=== PATIENT | female | born 1980 | race Caucasian/White ===

== ENCOUNTER 2017-11-15 08:34 | Outpatient (CLI) | payer MEDICAID, SELFPAY ==
[2017-11-15 09:39] LABS: Hemoglobin A1C 5.8 % (4.5-6.2)
[2017-11-15 10:42] LABS: ALT 32 U/L (12-78); AST 14 U/L (15-37); Albumin 3.6 g/dL (3.4-5.0); Alkaline Phosphatase 101 U/L (46-116); BUN 18 mg/dL (7-18); Bilirubin, Total 0.2 mg/dL (0.2-1.0); CREATININE 1.27 mg/dL (0.55-1.02); Calcium 8.7 mg/dL (8.5-10.1); Chloride 105 mmol/L (98-107); Cholesterol 186 mg/dL (50-200); Estimated GFR 47.09 (mL/min/1.73m2); Glucose 111 mg/dL (70-100); HDL Cholesterol 42 mg/dL (40-60); LDL CHOLESTEROL 114 mg/dL (<100); Potassium 4.1 mmol/L (3.5-5.1); Sodium 139 mmol/L (136-145); Total Protein 6.6 g/dL (6.4-8.2); Triglyceride 215 mg/dL (30-150)
== END 2017-11-15 08:54 ==
PROVIDERS: PCP Family Medicine; Visit Provider Nurse Practitioner Family
DX: F31.74 Bipolar disorder, in full remission, most recent episode manic (principal); Z79.899 Other long term (current) drug therapy
CPT/HCPCS: 36415; 80053; 80061; 83721; 83036

== ENCOUNTER 2018-07-17 09:16 | Outpatient (CLI) | payer MEDICAID, SELFPAY ==
--- NOTE | 2018-07-17 09:20 | DI.RAD_ITS ---
SYMPTOM/DIAGNOSIS: LT KNEE PAIN AFTER COLLISION WITH DOG, STRAIN, S87.755G LEFT KNEE: Three views were obtained. No bony abnormality is seen.
== END 2018-07-17 09:36 ==
PROVIDERS: PCP Family Medicine; Visit Provider Nurse Practitioner Family
DX: M25.562 Pain in left knee (principal); S86.912A Strain of unspecified muscle(s) and tendon(s) at lower leg level, left leg, initial encounter
CPT/HCPCS: 73562

== ENCOUNTER 2019-04-14 19:00 | Emergency (ER) | payer MEDICAID, SELFPAY ==
[2019-04-14 19:16] VITALS: BP 136/91; PULSE 101; RESP 14; TEMP 38.1; O2SAT 94
--- NOTE | 2019-04-14 19:31 | W.ED.GENAD ---
Discharge Plan Disposition Patient Disposition: HOME Condition: Improving Discharge Details Chief Complaint: SOB Clinical Impression: Influenza A, Acute bronchospasm Primary Care Provider: Chelsi Orr ED Provider: Cisco Garcia Home Meds and New Rx's Prescriptions: New prednisone 20 mg tablet 40 mg PO DAILY 5 Days Qty: 10 RF: 0 Continued albuterol sulfate [ProAir HFA] 90 mcg/actuation HFA aerosol inhaler 2 puff Inhalation Q4H PRN Qty: 1 RF: 1 benzonatate [Tessalon Perles] 100 mg capsule 100 mg PO TID PRN (Reason: cough) Qty: 30 RF: 0 clonazepam 0.5 MG tablet 0.5 mg PO DAILY RF: 0 bupropion HCl [Wellbutrin SR] 100 MG tablet extended release 12 hr 100 mg PO DAILY RF: 0 benztropine 1 MG tablet 1 mg PO DAILY RF: 0 ziprasidone HCl [Geodon] 60 MG capsule 60 mg PO BID RF: 0 topiramate 50 MG tablet 50 mg PO BID RF: 0 Discharge Instructions Instructions: Influenza (ED), Bronchospasm (ED) Additional Instructions: Please take prednisone as prescribed, next dose tomorrow. May use the prescribed inhaler, return if you feel you are needing to use it greater than every 2-4 hours time. Tylenol and/or ibuprofen as needed for aches, pains, fever. Continue to push fluids with small, frequent sips of liquids and/or popsicles. Follow-up with regular doctor if not improving in 3 to 4 days time. Return to the emergency department for any acute concerns. Medical Decision Making 38-year-old female smoker with days of upper respiratory illness, worsening over the past 2 days for which she was seen in clinic earlier today. She was started on an inhaler and Tessalon Perles with some improvement. Tonight she had return of recurrent fever, shortness of breath at home and therefore sought emergency evaluation. Patient has slightly high pulse in triage of 101, she is febrile to 38.1 but is oxygenating normally. Exam reveals diffuse end expiratory wheezes. Differential does includes pneumonia, influenza, bronchitis with bronchospasm. Influenza screening obtained, patient referred for chest x-ray, given DuoNeb updraft and parenteral steroids. The patient does have positive influenza A. Chest x-ray without focal infiltrate. Following fluids, inhaled neb, steroids, and patient is improving. Vital signs improved. She does have an exacerbation of reactive airway disease. She will require a burst of oral/systemic steroids. She is outside the window to treat with Tamiflu. Discussed with her home management. She is stable and improving. She is appropriate for a trial of outpatient care. HPI General Mode of arrival: ambulatory. Date/Time Provider Initiated Documentation: 04/14/19 19:18. Limitations to Documentation: no limitations. Information obtained by: patient. History of Present Illness 38 year old F presents to the emergency department with the chief complaint of Cough, fever, wheeze and shortness of breath, described as moderate and similar to prior episodes, and is localized to the chest. Patient reports no radiation. Patient started experiencing this day(s) and it has been intermittent. No relieving factors improve symptom(s), Other factors that worsen symptoms (Smoking) . Patient notes cough, fever/chills and shortness of breath; denies headaches, nausea/vomiting and syncope. Patient did receive the following treatments prior to arrival, other (Inhaler) Related Data Home Medications Medication Instructions Recorded Confirmed benztropine 1 mg PO DAILY 06/28/15 04/14/19 bupropion HCl [Wellbutrin SR] 100 mg PO DAILY 06/28/15 04/14/19 clonazepam 0.5 mg PO DAILY 06/28/15 04/14/19 ziprasidone HCl [Geodon] 60 mg PO BID tab-cap 06/28/15 04/14/19 topiramate 50 mg PO BID 01/07/17 04/14/19 albuterol sulfate 90 mcg/actuation 2 puff INHALATION Q4H PRN #1 04/14/19 04/14/19 aerosol inhaler inhaler benzonatate 100 mg capsule 100 mg PO TID PRN #30 cap 04/14/19 04/14/19 prednisone 40 mg PO DAILY 5 Days #10 tab 04/14/19 Previous Rx's Medication Instructions Recorded albuterol sulfate 90 mcg/actuation 2 puff INHALATION Q4H PRN #1 04/14/19 aerosol inhaler inhaler benzonatate 100 mg capsule 100 mg PO TID PRN #30 cap 04/14/19 prednisone 40 mg PO DAILY 5 Days #10 tab 04/14/19 Allergies Allergy/AdvReac Type Severity Reaction Status Date / Time penicillin V Allergy Unknown Skin Rash Unverified 04/14/19 19:52 General Stated Complaint: SOB CLIVE: 3 Review of Systems Narrative: Question of sick contact at home. No vomiting, no syncope, no travel, no lower extremity pain or swelling. 6 systems reviewed and otherwise negative. [facility] Medical History Anxiety Asthma Bipolar disorder Diabetes mellitus Family History Mother Personal history of malignant neoplasm Breast Cancer Social History Smoking/Tobacco Use Status: Current every day Drug use: Never Do you feel safe at home: Yes Do you feel safe in your relationship?: Yes Exam Narrative Exam Narrative: GEN: awake, alert, oriented 3. Pleasant, well groomed, interactive. HEAD: Normocephalic, atraumatic ENT: Mucous membranes moist, oropharynx unremarkable, External ear exam unremarkable EYES: PERRL, EOMI NECK: Full ROM, no IBIS, no menigismus CHEST/RESP: Nontender, bilateral end expiratory wheeze CARDIOVASCULAR: RRR, no murmur, rub fernando. 2+ Rad pulse bilateral ABDOMEN: Soft, nontender, no mass. +Bowel sounds EXT: Full ROM, no edema, no rash Neuro: Grossly normal neurologic exam, conversant, interactive. Psych: Speech fluent, thoughts congruent, affect normal Course Vital Signs Vital signs: Vital Signs Temperature 38.1 C H 04/14/19 19:16 Pulse 101 H 04/14/19 19:16 Respiratory Rate 14 04/14/19 19:16 Blood Pressure 136/91 H 04/14/19 19:16 Pulse Oximetry 94 L 04/14/19 19:16 Temperature 38.1 C H 04/14/19 19:16 Temperature Source Tympanic 04/14/19 19:16 Pulse 101 H 04/14/19 19:16 Respiratory Rate 14 04/14/19 19:16 Blood Pressure 136/91 H 04/14/19 19:16 Pulse Oximetry 94 L 04/14/19 19:16 Oxygen Delivery Method Room Air 04/14/19 19:16 Oxygen Flow Rate 0 04/14/19 19:16 Pain Level 10 04/14/19 19:16 Comment 04/14/19 19:16
[2019-04-14 19:49] VITALS: RESP 18
[2019-04-14] MEDS: Acetaminophen 500 MG TAB 1000 MG PO (19:52)
[2019-04-14] MEDS: methylPREDNISolone SUCC 125 MG VIAL IVP (19:53)
[2019-04-14] MEDS: Normal Saline 1,000 ML 1000 ML IV (19:53)
[2019-04-14] MEDS: Albuterol/Ipratropium 3 ML UPD VIAL UPD (19:53)
--- NOTE | 2019-04-14 20:19 | DI.RAD_ITS ---
EXAM: XR CHEST 2V PA LATERAL CLINICAL HISTORY: fever, cough, wheeze. TECHNIQUE: 2D digital imaging was performed. COMPARISON: CHEST 2 VIEWS PA,LAT from 01/07/2017 FINDINGS: LUNGS: Clear. No pleural abnormality seen. HEART: Normal. MEDIASTINUM: Normal. OTHER FINDINGS:Normal. BONE:Normal. IMPRESSION: No acute pulmonary findings.
--- NOTE | 2019-04-14 20:39 | DI.VRAD_ITS ---
PROCEDURE INFORMATION: Exam: XR Chest, 2 Views Exam date and time: 04/14/2019 8:19 PM Age: 38 years old Clinical indication: Fever, cough, wheeze TECHNIQUE: Imaging protocol: XR of the chest Views: 2 views. COMPARISON: CR CHEST 2 VIEWS PA,LAT 01/07/2017 7:16 PM FINDINGS: Lungs: Clear lungs. Pleural space: No pneumothorax. No sizable pleural effusion. Heart/Mediastinum: No cardiomegaly. Bones/joints: Unremarkable. IMPRESSION: Clear lungs. Dictated and Authenticated by: Demetris Flores MD. Ordering:EDILBERTO Peck MD
[2019-04-14 21:08] VITALS: BP 120/54; PULSE 85; TEMP 36.8; O2SAT 94
[2019-04-14 21:41] VITALS: BP 117/70; PULSE 94; RESP 16; TEMP 36.7; O2SAT 96
== END 2019-04-14 21:35 | disposition home or self-care (01) ==
PROVIDERS: Emergency Provider Emergency Medicine; PCP Nurse Practitioner
DX: J10.1 Influenza due to other identified influenza virus with other respiratory manifestations (principal); J98.01 Acute bronchospasm; R06.02 Shortness of breath; F17.210 Nicotine dependence, cigarettes, uncomplicated; E11.9 Type 2 diabetes mellitus without complications
CPT/HCPCS: 87449; 94640; 96361; 96374; 99284; 71046; J2930; J7620

== ENCOUNTER 2020-11-20 20:15 | Emergency (ER) | payer MEDICARE, MEDICAID, SELFPAY ==
--- NOTE | 2020-11-20 20:41 | W.ED.GENAD ---
Discharge Plan Disposition Patient Disposition: HOME Condition: Good Discharge Details Clinical Impression: Abscess Primary Care Provider: Chelsi Orr ED Provider: Sam Dow Home Meds and New Rx's Prescriptions: New doxycycline hyclate 100 mg tablet 100 mg PO BID Qty: 20 RF: 0 Continued benzonatate [Tessalon Perles] 100 mg capsule 100 mg PO TID PRN (Reason: cough) Qty: 30 RF: 0 clonazepam 0.5 MG tablet 0.5 mg PO DAILY RF: 0 bupropion HCl [Wellbutrin SR] 100 MG tablet extended release 12 hr 100 mg PO DAILY RF: 0 benztropine 1 MG tablet 1 mg PO DAILY RF: 0 ziprasidone HCl [Geodon] 60 MG capsule 60 mg PO BID RF: 0 albuterol sulfate [ProAir HFA] 90 mcg/actuation HFA aerosol inhaler 2 puff Inhalation Q4H PRN Qty: 1 RF: 1 topiramate 50 MG tablet 50 mg PO BID RF: 0 Discharge Instructions Instructions: Abscess (ED) Additional Instructions: At this time the abscess has been drained. The packing that we placed will fall out on its own. Please follow-up with your primary care provider in the next 2 weeks to have the area reassessed. Please take the antibiotic doxycycline as directed. It is been sent to your pharmacy to start. If you notice any worsening of your symptoms, or any new symptoms such as vomiting, diarrhea, fever, chills, shortness of breath, chest pain, numbness, weakness, or fainting , please return immediately to the emergency department for reevaluation. Please follow up with your primary care provider as soon as possible for reassessment and reevaluation. As always, it was a pleasure participating in your medical care today. Referrals: Chelsi Orr, [employer]PERATOR [Primary Care Provider] - Medical Decision Making 40-year-old female with a past medical history of anxiety, asthma, bipolar, and diabetes type 2, presents today for evaluation of an abscess in her left lower pannus. Patient states that for the last few days she has noticed a small lesion there, it is grown in size and become somewhat tender. She denies any fever or chills. She denies any drainage at this point. She admits to mild tenderness on palpation of the area. No other complaints at this time. No other modifying. Physical exam demonstrates evidence of mild abscess of the left lower panel fold. LMX was applied. We will perform I&D of the area. Will give doxycycline for home use. 9:01 PM Abscess was I&D, about 5 to 7 mL of fluid were removed. The area was packed. Band-Aid is put over it. Discussed red flags which to return. Patient feeling much better. I have extensively reviewed the treatment plan and discharge instructions with the patient. I have addressed all patient concerns at this time. The patient was made aware of what symptoms to monitor for that would warrant a return to the emergency department. Discussed the plan with the patient, they demonstrate verbal understanding and agreement with our assessment and plan at this time. The documentation in this chart was dictated using [employer] dictation software. Please excuse any dictation errors. HPI General Date/Time Provider Initiated Documentation: 11/20/20 20:27. HPI Narrative: 40-year-old female with a past medical history of anxiety, asthma, bipolar, and diabetes type 2, presents today for evaluation of an abscess in her left lower pannus. Patient states that for the last few days she has noticed a small lesion there, it is grown in size and become somewhat tender. She denies any fever or chills. She denies any drainage at this point. She admits to mild tenderness on palpation of the area. No other complaints at this time. No other modifying. Related Data Home Medications Medication Instructions Recorded Confirmed benztropine 1 mg PO DAILY 06/28/15 04/14/19 bupropion HCl [Wellbutrin SR] 100 mg PO DAILY 06/28/15 04/14/19 clonazepam 0.5 mg PO DAILY 06/28/15 04/14/19 ziprasidone HCl [Geodon] 60 mg PO BID tab-cap 06/28/15 04/14/19 topiramate 50 mg PO BID 01/07/17 04/14/19 benzonatate 100 mg capsule 100 mg PO TID PRN #30 cap 04/14/19 04/14/19 albuterol sulfate 90 mcg/actuation 2 puff INHALATION Q4H PRN #1 11/17/19 aerosol inhaler inhaler doxycycline hyclate 100 mg PO BID #20 tab 11/20/20 Previous Rx's Medication Instructions Recorded benzonatate 100 mg capsule 100 mg PO TID PRN #30 cap 04/14/19 albuterol sulfate 90 mcg/actuation 2 puff INHALATION Q4H PRN #1 11/17/19 aerosol inhaler inhaler doxycycline hyclate 100 mg PO BID #20 tab 11/20/20 Allergies Allergy/AdvReac Type Severity Reaction Status Date / Time penicillin V Allergy Unknown Skin Rash Unverified 04/14/19 19:52 General CLIVE: 3 Review of Systems All systems reviewed & are unremarkable except as noted in HPI and below PFSH Medical History (Updated 11/20/20 @ 20:44 by Sam Dow DO) Anxiety Asthma Bipolar disorder Diabetes mellitus Family History Mother Personal history of malignant neoplasm Breast Cancer Social History Smoking/Tobacco Use Status: Current every day Smoking risk assessment performed?: Yes Drug use: Never Do you feel safe at home: Yes Do you feel safe in your relationship?: Yes Exam Narrative Exam Narrative: 1.Const: Well-nourished, Well-developed, appearing stated age 2.Eyes: PERRL, no conjunctival injection, and symmetrical lids. 3.ENT: Atraumatic external nose and ears. Moist MM. Neck: Symmetric, trachea midline, No thyromegaly. 4.CVS: +S1/S2, No murmurs or gallops. Peripheral pulses 2+ and equal in all extremities. Brisk capillary refill in all extremities. 5.RESP: Unlabored respiratory effort. Clear to auscultation bilaterally. No wheezes rales or rhonchi 6.GI: Soft, Nontender/Nondistended, No hepatosplenomegaly. No guarding or rebound. 7.MSK: Normocephalic/Atraumatic, Extremities w/o deformity or ttp No cyanosis or clubbing, Normal movement of all extremities 8.Skin: Warm, Dry. Patient's left lower panel fold demonstrates a mild abscess to the left lower area. Diameter fluctuant area is roughly 2 cm, mildly red. Mildly tender. Surrounding that is a area of minimal firmness and induration proximally 0.5 to 1 cm circumferentially. No drainage, no crepitus. 9.Neuro: element burner II-XII grossly intact. Sensation grossly intact, no focal neurologic deficits. 10.Psych: (AAO) x3. Appropriate mood and affect Procedures Abscess I/D Site: Abdomen Side (if applicable): Left Local Anesthetic: Other Anesthetic (Lidocaine 4% topical) Amount of anesthesia used (mL): 4 Technique: Incised with #11 Blade Amount of fluid expressed (mL): 5 Irrigation: No Packing used?: Iodoform Complications: Other (None, tolerated procedure well)
[2020-11-20 21:03] VITALS: BP 130/80; PULSE 79; RESP 18; O2SAT 98
[2020-11-20] MEDS: Lidocaine 4% Cream 5 GM TUBE TP (21:07)
== END 2020-11-20 21:10 | disposition home or self-care (01) ==
PROVIDERS: Emergency Provider Student in an Organized Health Care Education/Training Program; PCP Nurse Practitioner
DX: L02.211 Cutaneous abscess of abdominal wall (principal)
CPT/HCPCS: 10061

== ENCOUNTER 2021-02-07 20:46 | Outpatient (REF) | payer MEDICARE, MEDICAID, SELFPAY ==
[2021-02-10 08:56] LABS: COVID-19 RT-PCR UVMMC Result Positive (Negative)
== END 2021-02-07 20:47 | disposition home or self-care (01) ==
LOC: LBN 20:46
PROVIDERS: PCP Nurse Practitioner; Visit Provider Family Medicine
DX: Z20.822 Contact with and (suspected) exposure to COVID-19 (principal); R05.8 Other specified cough
CPT/HCPCS: U0003

== ENCOUNTER 2021-04-05 12:38 | Outpatient (REF) | payer MEDICARE, MEDICAID, SELFPAY ==
[2021-04-06 13:34] LABS: COVID-19 RT-PCR UVMMC Result Negative (Negative)
== END 2021-04-05 12:39 | disposition home or self-care (01) ==
LOC: LBN 12:38
PROVIDERS: PCP Nurse Practitioner; Visit Provider Family Medicine
DX: J02.9 Acute pharyngitis, unspecified (principal); Z20.822 Contact with and (suspected) exposure to COVID-19
CPT/HCPCS: U0003; U0005; 87070

== ENCOUNTER 2021-07-13 11:00 | Outpatient (REF) | payer MEDICARE, MEDICAID, SELFPAY ==
--- NOTE | 2021-07-13 10:30 | PAPFT_PTH ---
PATIENT: Sirena Tarango LOC: [facility] U#:[id number] AGE/SX: 40/F ROOM: RE07/13/[address]: MELISSA Almanza : 1980 BED: DIS: 07/13/2021 SPEC #: [id number] RECD: 07/13/21 13:00 STATUS: PPIE HERNANDEZ #: [id number] SONNY: 07/13/21 10:[address]: Ele Alonso DEPT: [facility] Cytology RECD BY: Get Barrientos Tissues: 1 - CX/ENDOCX FOR PAP SMEARS Procedures: PAP THIN PREP/UVM Screening HPV DNA PROBE Comments: [id number]
== END 2021-07-13 11:01 | disposition home or self-care (01) ==
LOC: LBN 11:00
PROVIDERS: PCP Nurse Practitioner; Visit Provider Nurse Practitioner Family
DX: Z11.51 Encounter for screening for human papillomavirus (HPV); Z01.419 Encounter for gynecological examination (general) (routine) without abnormal findings
CPT/HCPCS: 88142; 87624

== ENCOUNTER 2021-08-31 23:58 | Emergency (ER) | payer MEDICARE, MEDICAID, SELFPAY ==
--- NOTE | 2021-09-01 | RT.EKG_ITS ---
APPROVED REPORT Exam: Resting ECG Reason for Exam: left chest pain Patient Location: E HR:94 bpm ECG Measurements Heart Rate 94 AXIS AK 155 P 55 QRSd 83 QRS 40 QT 337 T 44 QTc 421 Conclusion Sinus rhythm...normal P axis, V-rate 60- 99
[2021-09-01 00:08] VITALS: BP 136/81; PULSE 99; RESP 20; TEMP 36.2; O2SAT 98
--- NOTE | 2021-09-01 00:15 | DI.RAD_ITS ---
Exam(s) XR CHEST 2V PA LATERAL EXAM: XR CHEST 2V PA LATERAL CLINICAL HISTORY: chest pain TECHNIQUE: 2D digital imaging was performed of the chest. Two images were obtained. PA and lateral views were obtained. COMPARISON: CR,XR XR CHEST 2V PA LATERAL from 04/14/2019 FINDINGS: MEDIASTINUM: Normal. HEART: Normal. PULMONARY VASCULATURE: Normal. LUNGS: Clear. PLEURAL SPACE: No pleural effusion or pneumothorax. BONE:Within normal limits for the patient's age. OTHER FINDINGS:Normal. IMPRESSION: No acute pulmonary findings. DATA REPOSITORY: RADIATION DOSE DELIVERED:
--- NOTE | 2021-09-01 00:15 | DI.CT_ITS ---
Exam(s) CT ABDOMEN PELVIS WO EXAM: CT ABDOMEN PELVIS WO CLINICAL HISTORY: left lower abdomen pain. TECHNIQUE: Imaging Protocol: Axial computed tomography images with coronal and sagittal reformatted images were created and reviewed. COMPARISON: No exams were available for comparison FINDINGS: ABDOMEN: Lung Bases: Normal where visualized. There is a small hiatal hernia. Liver: Normal density. No measurable mass. Gallbladder and biliary tract: Gallstones are present. There is no biliary ductal dilatation. Pancreas: Normal density, no abnormal calcifications or inflammatory process. Spleen: Normal. Kidneys: Normal size, contour and axis.No radiodense stones or obstructive uropathy. No masses seen. Adrenal glands: There is a 1.3 cm hypodense right adrenal nodule. Hounsfield units are -3. This is are most consistent with benign lesion such as an adenoma or myelolipoma. No follow-up is recommende d. The left adrenal gland is unremarkable. Lymph nodes: Within normal limits. Abdominal Aorta: Abdominal portion non-dilated. PELVIS: Bladder:Symmetric distention, no gross wall thickening. Bowel: No evidence of bowel obstruction. There do appear to be small bowel loops with mild bowel wal l thickening in the left upper quadrant suspicious for enteritis. Appendix is unremarkable. Peritoneal cavity: No ascites, collection or mesenteric inflammatory response. No free air. Reproductive organs: Within normal limits. There is an IUD in good position. Bones: Within normal limits. Soft Tissues: Within normal limits. IMPRESSION: Mild wall thickening and small bowel loops in the left upper quadrant suspicious for enteritis. RADIATION DOSE DELIVERED: 1,290.67mGy.cm Total DLP DATA REPOSITORY: All CT scans at this facility are submitted to the National Radiology Data Registry (NRDR) Dose Index Registry (DIR) with the [employer] ([employer]). RADIATION OPTIMIZATION: All CT scans at this facility use at least one of these dose optimization te chniques: automated exposure control; mA and/or kV adjustment per patient size (includes targeted exa ms where dose is matched to clinical indication); or iterative reconstruction.
--- NOTE | 2021-09-01 00:15 | ED.GENADUL_ITS ---
Discharge Plan Disposition Patient Disposition: AGAINST MEDICAL ADVICE Condition: Stable Discharge Details Clinical Impression: Chest pain, Abdominal pain Primary Care Provider: Chelsi Orr ED Provider: Jatin Phelan Home Meds and New Rx's Prescriptions: Continued metformin 500 mg tablet 500 mg PO DAILY albuterol sulfate [ProAir HFA] 90 mcg/actuation HFA aerosol inhaler 2 puff Inhalation Q4H PRN Qty: 1 1RF clonazepam 0.5 MG tablet 0.5 mg PO DAILY Label Comments: 01-09-17 pt reports that she is instructed to take one tab BID PRN. hb bupropion HCl [Wellbutrin SR] 100 MG tablet extended release 12 hr 150 mg PO DAILY ziprasidone HCl [Geodon] 60 MG capsule 60 mg PO BID Label Comments: 02/05/17 taking 80 mg at hs and 60 mg in the am. [facility] 01-09-17 pt reports taking 100 HS and 60 AC. hb omeprazole 20 mg capsule,delayed release(DR/EC) 20 mg PO DAILY Qty: 30 0RF Rx Instructions: may substitute generic Discharge Instructions Instructions: Chest Pain (ED) Additional Instructions: follow up with your primary care provider as soon as possible if you have worsening symptoms, difficulty breathing or feel more ill return to the emergency department. Medical Decision Making 40 yo female with hx of anxiety, asthma, dm, bipolar, comes in with chief complaint of diarrhea and left lateral chest pain when laying flat. She states this started this afternoon and also had some lower abdomen discomfort. She denies having pain like this in the past. She denies prior cardiac history and no anterior chest pain or pressure. Localizes the pain to the left lateral chest in mid axillary line and is tender over the 4-5 ribs, no visual or palpable deformities. She has llq tenderness otherwise no tenderness in the abdomen and no guarding. SHe appears well on exam does appear mildly anxious. Her pain in her chest is only with laying flat and has no pain now. Symptoms seem atypical for acs but will obtain ecg and troponin. No tearing back pain and normal vascular exam so doubt dissection and no evidence of dvt on exam no tachycardia or hypoxia and no pain with deep breathing so doubt PE. Will obtain cbc, cmp, troponin, and obtain cxr and ct abdomen/pelvis to evaluate for diverticulitis pt stable, labs show wbc of 12 otherwise no acute findings, has blood in urine but is on her period. I do not see any significant findings on imaging but vrad reports pending. REcommended patient stay for these reads and also delta troponin. She is declining to stay and wants to go home. Discussed risks of leaving including potential and disability and she still doesn't want to stay and was able to voice these risks back to me. She is caox4 and has capacity to make her own decisions. She is leaving against my medical advise. She was instructed to f/u with pcp meena and advised she can return at any time if she changes her mind Differential Diagnosis Differential Diagnosis: chest wall pain, pleurisy, diverticulitis, colitis Medical Records Medical records reviewed: Yes I reviewed the patient's medical records. Lab Data Lab results reviewed: Yes I reviewed the patient's lab results. ECG Data Attestation: I personally reviewed and interpreted this ECG (s) as follows: Prior ECG tracings: not available for review Interpretation: sinus rhythm, rate of 94, pr 155, no acute st t wave ischemic findings HPI General Mode of arrival: ambulatory . Date/Time Provider Initiated Documentation: 09/01/21 00:00 . Limitations to Documentation: no limitations . Information obtained by: patient . History of Present Illness 40 year old F presents to the emergency department with the chief complaint of left lateral chest pain, described as moderate, Patient started experiencing this hour(s) (5) and it has been now resolved. other things that improve symptom(s), (sitting up) Other factors that worsen symptoms (laying flat) . Patient notes other (diarrhea). Patient did receive the following treatments prior to arrival, none Related Data Home Medications Medication Instructions Recorded Confirmed bupropion HCl 100 mg tablet,12 hr 150 mg PO DAILY 06/28/15 09/01/21 sustained-release (Wellbutrin SR) clonazepam 0.5 mg tablet 0.5 mg PO DAILY 06/28/15 09/01/21 ziprasidone HCl 60 mg capsule 60 mg PO BID 06/28/15 09/01/21 (Geodon) albuterol sulfate 90 mcg/actuation 2 puff inhalation Q4H PRN ##1 02/07/21 09/01/21 aerosol inhaler (ProAir HFA) metformin 500 mg tablet 500 mg PO DAILY 04/05/21 09/01/21 omeprazole 20 mg capsule,delayed 20 mg PO DAILY #30 caps 05/12/21 09/01/21 release Previous Rx's Medication Instructions Recorded albuterol sulfate 90 mcg/actuation 2 puff inhalation Q4H PRN ##1 02/07/21 aerosol inhaler (ProAir HFA) omeprazole 20 mg capsule,delayed 20 mg PO DAILY #30 caps 05/12/21 release Allergies Allergy/AdvReac Type Severity Reaction Status Date / Time penicillin V Allergy Unknown Skin Rash Unverified 09/01/21 00:24 General Stated Complaint: Chest Pain CLIVE: 3 Review of Systems All systems reviewed & are unremarkable except as noted in HPI and below Constitutional Constitutional: Denies chills, Denies fever(s) and Denies weakness ENT Ears, Nose, Mouth, and Throat: Denies change in voice Cardiovascular Cardiovascular: Denies dyspnea Respiratory Respiratory: Denies cough and Denies dyspnea Gastrointestinal Gastrointestinal: Denies vomiting Genitourinary Genitourinary: Denies dysuria Musculoskeletal Musculoskeletal: Denies joint swelling Integumentary/Breasts Skin/Breast: Denies rash Neurologic Neurologic: Denies weakness PFSH All Active Problems (Updated 09/01/21 @ 01:34 by Jatin Phelan MD) Chest pain (Acute) Abdominal pain (Acute) IUD surveillance (Acute) GERD (gastroesophageal reflux disease) (Chronic) Abscess (Acute) URI (upper respiratory infection) (Acute) Medical History (Updated 09/01/21 @ 01:34 by Jatin Phelan MD) Anxiety Asthma Bipolar disorder Diabetes mellitus History of COVID-19 (~01/2021) 01/2021 Family History Mother Personal history of malignant neoplasm Breast Cancer Social History (Updated 04/05/21 @ 09:20 by Charito Navarrete MD) Smoking/Tobacco Use Status: Current every day Tobacco Type: cigarettes Years smoked: 15 Smoking risk assessment performed?: Yes Alcohol Intake: never Drug use: Never Do you feel safe at home: Yes Do you feel safe in your relationship?: Yes Exam Const General: no acute distress Orientation: alert HENMT Head: normal to inspection Ears: external ears normal General nose exam: external nose normal Mouth: moist mucous membranes Eyes General: appearance normal, both eyes and all related structures Neck Neck: normal visual inspection Chest Chest: normal inspection of the chest Resp Effort & Inspection: normal respiratory effort and able to speak in complete sentences Cardio Rate: regular rate GI Palpation: soft Skin General skin exam: no rashes or lesions noted Neuro General: patient alert and patient oriented x3 Extrem General: normal to inspection Psych Mental Status: mental status grossly normal Course Vital Signs Vital signs: Vital Signs Temperature 36.2 C L 09/01/21 00:08 Pulse 99 H 09/01/21 00:08 Respiratory Rate 20 09/01/21 00:08 Blood Pressure 136/81 09/01/21 00:08 Pulse Oximetry 98 09/01/21 00:08 Temperature 36.2 C L 09/01/21 00:08 Pulse 99 H 09/01/21 00:08 Respiratory Rate 20 09/01/21 00:08 Blood Pressure 136/81 09/01/21 00:08 Blood Pressure Position Supine 09/01/21 00:08 Pulse Oximetry 98 09/01/21 00:08 Oxygen Delivery Method Room Air 09/01/21 00:08 Oxygen Flow Rate 0 09/01/21 00:08 Pain Level 0 09/01/21 00:08
[2021-09-01 00:22] LABS: Bilirubin Negative (Negative); Blood Large (Negative); Clarity Clear (Clear); Glucose Negative (Negative); Ketones Negative (Negative); Leukocyte Esterase Trace (Negative); Nitrite Negative (Negative); Specific Gravity 1.015 (1.005-1.025); Urobilinogen 0.2 EU/dL (Up TO 0.2)
[2021-09-01 00:26] LABS: Abs Immature Grans 0.06 10^3/uL (0.0-0.06); Absolute Basophil Count 0.06 10^3/uL (0.0-0.2); Absolute Lymphocyte Count 3.73 10^3/uL (1.2-3.4); Basophils % 0.5; Eosinophils % 2.6; HCT 42.6 % (36.0-46.0); HGB 14.3 g/dL (11.2-15.7); Immature Grans % 0.5; Lymphocytes % 28.9; MCH 29.7 pg (27.0-33.0); MCHC 33.6 % (32.0-36.0); MCV 89 fL (80-95); MPV 9.8 fL (8.0-11.0); Monocytes % 6.3; Neutrophils % 61.2; Platelet Count 322 10^3/uL (130-400); RBC 4.81 10^6/uL (3.93-5.22); RDW 14.1 % (11.7-14.6); RDW-SD 45.5 fL; WBC 12.92 10^3/uL (4.4-10.8)
[2021-09-01 00:31] LABS: Absolute Eosinophil Count 0.34 10^3/uL (0.0-0.7); Absolute Monocyte Count 0.81 10^3/uL (0.1-0.8); Absolute Neutrophil Count 7.91 10^3/uL (1.2-6.7)
[2021-09-01 00:34] LABS: Bacteria Negative HPF (Negative); C & S Indicated? No; Crystals Negative HPF (Negative); Epithelial Cells Rare HPF (Negative); Mucus Negative (Negative); RBC >50 HPF (0-2); WBC 0-2 HPF (0-5)
[2021-09-01 00:42] LABS: Lipase 83 U/L (73-393); Magnesium 2.1 mg/dL (1.8-2.4); Troponin I < 50 ng/L (<or=60)
--- NOTE | 2021-09-01 03:26 | DI.VRAD_ITS ---
PROCEDURE INFORMATION: Exam: CT Abdomen And Pelvis Without Contrast Exam date and time: 09/01/2021 12:56 AM Age: 40 years old Clinical indication: Abdominal pain; Generalized; Additional info: Abd pain TECHNIQUE: Imaging protocol: Computed tomography of the abdomen and pelvis without contrast. Radiation optimization: All CT scans at this facility use at least one of these dose optimization techniques: automated exposure control; mA and/or kV adjustment per patient size (includes targeted exams where dose is matched to clinical indication); or iterative reconstruction. COMPARISON: CR XR CHEST 2V PA LATERAL 04/14/2019 8:19 PM FINDINGS: Tubes, catheters and devices: Intrauterine device positioned in the uterus. Lungs: Lung bases are clear. Diaphragm: Mild hiatal hernia. Liver: Unremarkable noncontrast liver imaging. Gallbladder and bile ducts: Collapsed gallbladder. Multiple stones. No inflammatory change. No ductal dilatation. Pancreas: Normal. No ductal dilation. Spleen: Normal. No splenomegaly. Adrenal glands: Right adrenal myelolipoma, 1.5 cm, incidental. Kidneys and ureters: No hydronephrosis. Perinephric fat stranding noted on the right. No definite stones. Stomach and bowel: Unremarkable stomach. Nondilated small bowel. Fat planes around loops of small bowel are indistinct. There are no inflammatory changes observed around the colon. Appendix: Normal appendix. Intraperitoneal space: Mild mesenteric fat stranding. No significant free fluid. Negative for free air. Negative for abscess. Vasculature: Unremarkable. No abdominal aortic aneurysm. Lymph nodes: Mesenteric lymph nodes are mildly prominent. Negative for pathologic lymphadenopathy. Urinary bladder: Unremarkable as visualized. Reproductive: Negative for adnexal mass or cyst. Bones/joints: Unremarkable. No acute fracture. Soft tissues: No significant abdominal wall hernia. IMPRESSION: 1. Findings of enteritis with reactive mesenteric inflammation. 2. Cholelithiasis, without cholecystitis. Dictated and Authenticated by: Jatin Ness MD. Ordering:KELLI Steiner MD
--- NOTE | 2021-09-01 03:26 | DI.VRAD_ITS ---
PROCEDURE INFORMATION: Exam: XR Chest Exam date and time: 09/01/2021 12:58 AM Age: 40 years old Clinical indication: Chest wall pain; Additional info: Chest pain TECHNIQUE: Imaging protocol: Radiologic exam of the chest. Views: 2 views. COMPARISON: CR XR CHEST 2V PA LATERAL 04/14/2019 8:19 PM FINDINGS: Lungs: Unremarkable. No consolidation. Pleural spaces: Unremarkable. No pleural effusion. No pneumothorax. Heart/Mediastinum: Unremarkable. No cardiomegaly. Bones/joints: Unremarkable. IMPRESSION: No acute findings. Dictated and Authenticated by: Jatin Ness MD. Ordering:KELLI Steiner MD
== END 2021-09-01 02:32 | disposition left against medical advice (07) ==
PROVIDERS: Emergency Provider Emergency Medicine; PCP Nurse Practitioner
DX: R07.9 Chest pain, unspecified (principal); R10.9 Unspecified abdominal pain; K52.9 Noninfective gastroenteritis and colitis, unspecified; K80.20 Calculus of gallbladder without cholecystitis without obstruction; R10.32 Left lower quadrant pain; Z53.29 Procedure and treatment not carried out because of patient's decision for other reasons
CPT/HCPCS: 81025; 83690; 93005; 99285; 71046; 74176; 81003; 81015; 83735; 84484; 85025; 93010; 99284

== ENCOUNTER → 2021-09-28 00:39 | Outpatient (CLI) | payer MEDICARE, MEDICAID, SELFPAY ==
--- NOTE | 2021-09-28 08:45 | DI.MAMMO_ITS ---
Exam(s) MAMMO SCREENING EXAM: MAMMO SCREENING CLINICAL HISTORY: screening. TECHNIQUE: Bilateral full field digital CC and MLO mammographic images were obtained with 3D tomosyn thesis and utilizing computer aided detection (CAD). COMPARISON: Prior mammogram of 2013 was reviewed. There are no interval mammograms since 2013. FINDINGS: There has been no significant change in the appearance and distribution of the fibroglandular tissue. There are no new spiculated masses nor malignant appearing microcalcification groups. Benign-appearing nodules in both breasts are unchanged from 2013 point. There is no significant architectural distortion nor skin thickening-retraction. IMPRESSION: No radiographic evidence of malignancy. Stable benign findings. BI-RADS Category 2 - Benign Findings Breast Density - Category B - Scattered areas of fibroglandular density Breast density Category C or D implies that the patient has dense breast tissue. Dense breast tissue can make it harder to find cancer on a mammogram. Dense breast tissue is also associated with an incr eased risk of breast cancer. This information about the result of the mammogram report was provided to the patient to raise their awareness. Use this report when you speak with the patient about their risks for breast cancer, which includes their family history. At that time, you may recommend additional screening tests (Ultrasoun d or MRI) as these tests may add significant information. A negative radiographic report should not delay biopsy if a dominant or clinically suspicious mass is present. Up to ten percent of cancers are not identified on mammography. A negative report may reinforce clinical impression. Adenosis and dense breasts may obscure an underlying neoplasm. False positive reports average 6 to 10%. Patient will receive a letter notifying them of these results.
== END ==
PROVIDERS: PCP Nurse Practitioner; Visit Provider Nurse Practitioner Family
DX: Z12.31 Encounter for screening mammogram for malignant neoplasm of breast (principal)
CPT/HCPCS: 77063; 77067

== ENCOUNTER 2021-10-19 21:21 | Emergency (ER) | payer MEDICARE, MEDICAID, SELFPAY ==
[2021-10-19 21:25] VITALS: BP 133/88; PULSE 112; RESP 18; TEMP 36.8
[2021-10-19] MEDS: diphenhydrAMINE 50 MG/ML VIAL (21:35)
[2021-10-19] MEDS: LORazepam 20 MG/10 ML VIAL ×2 (21:35→22:40)
[2021-10-19] MEDS: Haloperidol 5 MG/ML VIAL (21:35)
--- NOTE | 2021-10-19 22:11 | W.ED.GENAD ---
Discharge Plan Disposition Patient Disposition: STILL A PATIENT Condition: Serious Discharge Details Clinical Impression: Manic episode, Agitation Primary Care Provider: Chelsi Orr ED Provider: Sam Dow Home Meds and New Rx's Prescriptions: No Action metformin 500 mg tablet 500 mg PO DAILY albuterol sulfate [ProAir HFA] 90 mcg/actuation HFA aerosol inhaler 2 puff Inhalation Q4H PRN Qty: 1 1RF clonazepam 0.5 MG tablet 0.5 mg PO TID Label Comments: 01-09-17 pt reports that she is instructed to take one tab BID PRN. hb bupropion HCl [Wellbutrin SR] 100 MG tablet extended release 12 hr 150 mg PO DAILY ziprasidone HCl [Geodon] 60 MG capsule 60 mg PO BID Label Comments: 02/05/17 taking 80 mg at hs and 60 mg in the am. [facility] 01-09-17 pt reports taking 100 HS and 60 AC. hb olanzapine 5 mg tablet 1 tab PO DAILY Label Comments: TAKE ONE TABLET BY MOUTH EVERY DAY Medical Decision Making 40-year-old female with a past medical history of anxiety, asthma, bipolar, and diabetes type 2, who presents today for evaluation of mental health crisis [facility], under a current emergency examination status.. Over the last few days the patient (Per the emergency examination documentation and [facility] police) has been having a notable increase in her manic states. She has been impulsive buying, has been calling [facility] police multiple times stating that she is being abused, she was talking to her primary provider stating that she wants a name change, and wants to go travel. She bought $1000 of scratch off tickets and new iPhone over the last few days impulsively. Normally she is gentle, in touch, and kind to others however family states that over the last week she has been abusive to family, out of touch, violent, often speaking in rapid speech, gibberish, and notably aggravated. This evening all of the symptoms escalated, mental health was asked to assess the patient, and after assessment, the patient was noted to be in an acute manic episode, and she was brought to the ER under emergency examination status. Currently the patient does not have any focal complaints but she states that I know my rights, I can do what ever I want, [place] She has no focal complaints though. She denies any auditory or visual hallucinations. She denies any suicidal or homicidal ideations. She is otherwise unable to provide any other historical details. Physical exam demonstrates a notably manic patient, rapid speech, pressured speech, flight of ideas and tangential thinking. She is stating that this is wrong because of her freedoms, and then will transition to apologizing profusely and stating that she would do what ever needs to be done to get help. She goes on about how she is done with this job, and now she has to leave so she can get to her next job. When the patient initially arrived she was like this and eventually escalated to the point where she stated she was leaving. She was given clear options, I made it unequivocally that if she did leave because of her emergency examination status that she would be brought back by [facility] police, and would likely need chemical restraint secondary to this behavior. Patient then walked out of the emergency department pushing past me, and walked out to the front door but actually never left the building/premises. She was then brought back in by [facility] police. She voluntarily accepted a B-52 injection, unfortunately she continues to be notably agitated, refused to take off any of her jewelry, and eventually required additional sedation voluntarily of 10 mg of Valium and 10 mg of Zyprexa. We will continue to monitor the patient, I will fill out an EE form, and they do agree with the findings of the initial mental health assessment. We will medically clear, monitor closely and reassess. 4:39 AM Patient's laboratory work-up is returned and is relatively unremarkable. TSH is mildly elevated at 5.71, but free T4 is normal. Drug analysis demonstrates no significant abnormalities that would suggest a clear cause of her symptoms. Symptoms are more likely secondary to her bipolar disease, and she is demonstrating evidence of a manic episode with clear disruption of normal safe and appropriate thinking and the patient's current state. Patient has remained stable throughout the night. She has been hemodynamically stable, and is now resting comfortably in bed. No additional interventions were required. EE paperwork has been sent, and mental health will reassess in the morning. Patient will be signed out to my colleague for follow-up on mental health evaluation. Patient remains here involuntarily. HPI General Date/Time Provider Initiated Documentation: 10/19/21 21:25. HPI Narrative: 40-year-old female with a past medical history of anxiety, asthma, bipolar, and diabetes type 2, who presents today for evaluation of mental health crisis [facility], under a current emergency examination status.. Over the last few days the patient (Per the emergency examination documentation and [facility] police) has been having a notable increase in her manic states. She has been impulsive buying, has been calling [facility] police multiple times stating that she is being abused, she was talking to her primary provider stating that she wants a name change, and wants to go travel. She bought $1000 of scratch off tickets and new iPhone over the last few days impulsively. Normally she is gentle, in touch, and kind to others however family states that over the last week she has been abusive to family, out of touch, violent, often speaking in rapid speech, gibberish, and notably aggravated. This evening all of the symptoms escalated, mental health was asked to assess the patient, and after assessment, the patient was noted to be in an acute manic episode, and she was brought to the ER under emergency examination status. Currently the patient does not have any focal complaints but she states that I know my rights, I can do what ever I want, [place] She has no focal complaints though. She denies any auditory or visual hallucinations. She denies any suicidal or homicidal ideations. She is otherwise unable to provide any other historical details. Related Data Home Medications Medication Instructions Recorded Confirmed bupropion HCl 100 mg tablet,12 hr 150 mg PO DAILY 06/28/15 10/19/21 sustained-release (Wellbutrin SR) clonazepam 0.5 mg tablet 0.5 mg PO TID 06/28/15 10/19/21 ziprasidone HCl 60 mg capsule 60 mg PO BID 06/28/15 10/19/21 (Geodon) albuterol sulfate 90 mcg/actuation 2 puff inhalation Q4H PRN ##1 02/07/21 10/19/21 aerosol inhaler (ProAir HFA) metformin 500 mg tablet 500 mg PO DAILY 04/05/21 10/19/21 olanzapine 5 mg tablet 1 tab PO DAILY 10/19/21 10/19/21 Previous Rx's Medication Instructions Recorded albuterol sulfate 90 mcg/actuation 2 puff inhalation Q4H PRN ##1 02/07/21 aerosol inhaler (ProAir HFA) Allergies Allergy/AdvReac Type Severity Reaction Status Date / Time penicillin V Allergy Unknown Skin Rash Unverified 09/05/21 08:37 General CLIVE: 3 Review of Systems All systems reviewed & are unremarkable except as noted in HPI and below PFSH All Active Problems (Updated 10/20/21 @ 04:42 by Sam Dow DO) Manic episode (Acute) Agitation (Acute) IUD surveillance (Acute) GERD (gastroesophageal reflux disease) (Chronic) Medical History Anxiety Asthma Bipolar disorder Diabetes mellitus History of COVID-19 (~01/2021) 01/2021 Family History Mother Personal history of malignant neoplasm Breast Cancer Social History Smoking/Tobacco Use Status: Current every day Tobacco Type: cigarettes Years smoked: 15 Smoking risk assessment performed?: Yes Alcohol Intake: never Drug use: Never Details: Pt unable to answer these questions Do you feel safe at home: Yes Do you feel safe in your relationship?: Yes Exam Narrative Exam Narrative: 1.Const: Well-nourished, Well-developed, appearing stated age 2.Eyes: PERRL, no conjunctival injection, and symmetrical lids. 3.ENT: Atraumatic external nose and ears. Dry MM. Neck: Symmetric, trachea midline, No thyromegaly. 4.CVS: +S1/S2, No murmurs or gallops. Peripheral pulses 2+ and equal in all extremities. Brisk capillary refill in all extremities. 5.RESP: Unlabored respiratory effort. Clear to auscultation bilaterally. No wheezes rales or rhonchi 6.GI: Soft, Nontender/Nondistended, No hepatosplenomegaly. No guarding or rebound. 7.MSK: Normocephalic/Atraumatic, Extremities w/o deformity or ttp No cyanosis or clubbing, Normal movement of all extremities 8.Skin: Warm, Dry. No rashes or lesions. 9.Neuro: gas leak inspector II-XII grossly intact. Sensation grossly intact, no focal neurologic deficits. 10.Psych: (AAO) x3. Pressured speech, tangential ideas and thinking, and occasional perseverations and disjointed speech. Patient repeatedly brings up her [place] freedoms, but also quickly oscillates from crying and notably scared in appearance, and then rapidly transitioning to aggressive, violent, and antiestablishment mentality.
[2021-10-19] MEDS: OLANZapine 10 MG VIAL IM (22:40)
[2021-10-19] MEDS: diazePAM 10 MG/2 ML SYR IM (22:40)
[2021-10-19 23:17] LABS: Source Nasal/Nares
[2021-10-19 23:18] LABS: Abs Immature Grans 0.06 10^3/uL (0.0-0.06); Absolute Basophil Count 0.07 10^3/uL (0.0-0.2); Absolute Eosinophil Count 0.52 10^3/uL (0.0-0.7); Absolute Lymphocyte Count 3.36 10^3/uL (1.2-3.4); Absolute Monocyte Count 0.69 10^3/uL (0.1-0.8); Basophils % 0.6; Eosinophils % 4.2; HCT 41.9 % (36.0-46.0); HGB 13.8 g/dL (11.2-15.7); Immature Grans % 0.5; Lymphocytes % 27.2; MCH 29.2 pg (27.0-33.0); MCHC 32.9 % (32.0-36.0); MCV 89 fL (80-95); MPV 9.2 fL (8.0-11.0); Monocytes % 5.6; Neutrophils % 61.9; Platelet Count 342 10^3/uL (130-400); RBC 4.73 10^6/uL (3.93-5.22); RDW 13.6 % (11.7-14.6); RDW-SD 44.6 fL; WBC 12.37 10^3/uL (4.4-10.8)
[2021-10-19 23:22] LABS: Absolute Neutrophil Count 7.66 10^3/uL (1.2-6.7)
[2021-10-19 23:34] LABS: Bilirubin Negative (Negative); Blood Negative (Negative); Clarity Clear (Clear); Glucose Negative (Negative); Ketones Negative (Negative); Leukocyte Esterase Small (Negative); Nitrite Negative (Negative); Urobilinogen 0.2 EU/dL (Up TO 0.2)
[2021-10-19 23:41] LABS: Bacteria Rare HPF (Negative); Casts Negative LPF (Negative); Crystals Negative HPF (Negative); Epithelial Cells Moderate HPF (Negative); Mucus Negative (Negative); RBC Negative HPF (0-2)
[2021-10-19 23:42] LABS: C & S Indicated? No/Sq. Contamination
[2021-10-19 23:42] LABS: ALT 46 U/L (14-59); AST 27 U/L (15-37); Albumin 3.6 g/dL (3.4-5.0); Alkaline Phosphatase 102 U/L (46-116); Anion Gap 11.1 mmol/L (3-11); BUN 12 mg/dL (7-18); Bilirubin, Total 0.3 mg/dL (0.2-1.0); CO2 23.9 mmol/L (21.0-32.0); CREATININE 1.2 mg/dL (0.55-1.02); Calcium 8.9 mg/dL (8.5-10.1); Chloride 102 mmol/L (98-107); Estimated GFR 49.51 (mL/min/1.73m2); Glucose 143 mg/dL (74-106); Potassium 3.7 mmol/L (3.5-5.1); Sodium 137 mmol/L (136-145); TSH (W/Ref FT4) 5.71 uIU/mL (0.36-3.74); Total Protein 7.1 g/dL (6.4-8.2)
[2021-10-19] MEDS: Water,Injection,Sterile 10 ML VIAL (23:44)
[2021-10-19 23:48] LABS: COVID-19 PCR Negative (Negative)
[2021-10-19 23:51] LABS: Acetaminophen < 2 ug/mL (10-30)
[2021-10-19 23:56] LABS: ETHANOL BLOOD < 3.0 mg/dL (<10)
[2021-10-20] VITALS (26 sets, daily range): BP systolic 115–135; BP diastolic 64–88; PULSE 74–119; RESP 17–20; TEMP 37–37.1; O2SAT 94–97
[2021-10-20 00:05] LABS: FREE T4 1.07 ng/dL (0.76-1.46)
[2021-10-20 00:16] LABS: *AMPHETAMINES SCREEN URINE Negative (Negative); *BARBITURATES SCREEN URINE Negative (Negative); *BENZODIAZEPINES SCREEN URINE Negative (Negative); Cannabinoids THC Negative (Negative); Cocaine Screen,Urine Negative (Negative); METHADONE URINE SCREEN Negative (Negative); OPIATES URINE SCREEN Negative (Negative)
[2021-10-20 00:17] LABS: Tricyclic Antidepressants Negative (Negative)
--- NOTE | 2021-10-20 00:34 | NUR.NOTE ---
Nursing Note: Pt arrived to the ED approximately around 2100. She was escorted by the police and ambulated into room 5. Pt was to be in the ED for involuntary psych evaluation due to aggressive behavior toward her family and impulse buying items. Family states that the patient is out of her normal. Pt was found to be a danger to her self and others by police and mental health. Mental health at bedside with RN. Pt at this point was agreeable to vital signs. Vital signs were taken. PD left after pt was sitting on her stretcher. VSS. Pt was instructed to change out of her cloths, at first patient was very resistant stating that she was going home and that this trip was just to be checked out. Pt states that this is Cristin and I have the right to do what ever I want. 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 Pt asked this RN when she could start her shift and if she was going to get danskos instead of her shoes. Pt was able to change but refused to take off her bra and underwear.. Pt was asked by physician and medical staff to remove jewelry as keeping the jewelry on is a threat to self and others. Pt refused and started to get more escalated. Physician at pt's side explaining that if she were to leave, she will be brought back by police. Pt stated that she didn't care and stormed out of the ED with security following her. Pt ambulated out of the ED around 2124. [employer] police were called. Pt was outside in the parking lot with the security office. The patient never left hospital premise. The [facility] police brought patient back into the ED in handcuffs around 2129. Pt ambulated to bed 5 with 4 state troopers. Physician at bedside. Pt agreeable to take medications due to escalated behavior. Approximately around 2134 Pt received Benadryl, Haldol, and Ativan given per verbal order IM. See MAR. Medications had minimal effect on Pt. The mental health provider and physician both explained to patient about hospital policies about removing all personal items. Pt continues to refuse to take off jewelry and stated if this place ever stole any of my things i will come back and kill you all. Pt continued to yell at staff, telling numerous people to go get more education. At some points patient would be yelling at staff and then breaking down into tears crying. Pt was instructed to take off her rings and necklace, pt was explained to that leaving the jewelry on is a risk to self harm and to harm others. Pt started to take off rings then became very angry and tried to run out of the ED. Pt was stopped by 3 State troopers and placed back into bed 5. Approximately around 2240 MD verbally ordered Diazepam, Ativan, and Zyprexa IM. Medications given per order. See MAR. After about 30 minutes pt allowed RN to draw labs peripherally and was agreeable to test for COVID. Soon after pt ambulated to the bathroom with medical staff. Urine sent to lab per order. State police left ED around 2310. Pt seemed to be much calmer and more cooperative. Medical staff was able to get majority of Pts jewelry (Unable to remove 3 rings, nose ring, lip ring and, nipple ring. Necklace, anklets, bracelets and many rings were removed. (See belonging sheet) Pt Currently in paper top and pants. PT is currently sleeping on the stretcher with CPSO at bedside. Pt belongings are at nurses station. Belonging list complete. Pt currently sleeping in stretcher. Safety maintained. CPSO at bedside.
[2021-10-20] MEDS: diazePAM 5 MG TAB 10 MG PO (05:00)
[2021-10-20] MEDS: diphenhydrAMINE 25 MG CAP PO (05:01)
--- NOTE | 2021-10-20 05:27 | PDOC.MHCN ---
Date of service: 10/20/21 Time of Service: 21:26 Mental Health Crisis Note Presenting Issue How did you arrive at the ED and why did you come: Client was brought to ED via [facility] and [facility] on a mental health warrant. Please refer to warrant. Precipitating Factors Client is diagnosed with Bipolar 1 and appears to be in a manic episode that includes possible delusions, hallucinations, aggressive behaviors, and labile mood. Disposition BEHAVIOR: Clients behavior is aggressive and labile. She lacks insight and judgment to her current situation. EYE CONTACT: Good eye contact. MOOD: Labile. Clients emotions rapidly shift from sad and angry. AFFECT: Labile. APPETITE: Client has not eaten. SLEEP(trouble falling/staying asleep: It was reported by the clients mother that the client has not slept in days. Plan Client will be reassessed by [facility] twice daily. Client will remain on a 72 hour hold, until she is seen by a psychiatrist who will then determine whether or not she meets criteria for treatment. Signature Clinician's Name/Title: Lourdes Martel, HERBIE, B.S/HP
[2021-10-20] MEDS: diazePAM 10 MG/2 ML SYR IM (06:57)
--- NOTE | 2021-10-20 07:15 | RT.EKG_ITS ---
APPROVED REPORT Exam: Resting ECG Reason for Exam: [facility] Patient Location: E HR:107 bpm ECG Measurements Heart Rate 107 AXIS MA 134 P 42 QRSd 76 QRS 27 QT 322 T 12 QTc 429 Conclusion Sinus tachycardia...rate> 99 Physican: no stemi, intervals normal
--- NOTE | 2021-10-20 07:46 | NUR.NOTE ---
Patient currently washing up with bath wipes and was provided with clean paper scrubs. States she does not want them so she'll remain naked until we can give her her clothes. Patient is talking to herself. RN notified. Nursing Note:
--- NOTE | 2021-10-20 07:53 | NUR.NOTE ---
Patient asked if she could have her clothes. this curriculum writer stated that as far as I know, for safety we are just going to have her wear the paper scrubs for now and that as soon as we could get her her street clothes, we would. Patient said angrily, I hate this fucking place. And proceeded to put on paper scrubs and is ripping them trying to stretch them out. This curriculum writer asked if another staff member could grab us a bigger pair that would fit her more comfortably. Patient said, No these are the ones you gave me and I'll fucking wear them. Patient threw wipes on ground. Nursing Note:
--- NOTE | 2021-10-20 08:02 | NUR.NOTE ---
Patient taking off scrubs again. Patient is stating, Touch me again motherfuckers and I'll kill you with my bare hands.Nursing Note:
--- NOTE | 2021-10-20 08:34 | NUR.NOTE ---
Patient states that she is going to in here because she is away from her son. Patient is very upset and tearful. Patient is also putting on an entire bottle of lotion to help calm her down Patient states that You're going to let me out of here. This marketing writer let the patient know that that was not up to me. Patient now stating that she is going home. Patient currently standing in door way naked. Yelling.Nursing Note:
--- NOTE | 2021-10-20 08:48 | ED.PROG_ITS ---
Date of service: 10/20/21 Time of Service: 08:48 Medical Decision Making 800 --care signed out by Dr. Dow with plan to await second certification. 845 -- Patient refusing to participate in care and now violent and aggressive. Patient is labile and intermittently tearful. Patient intermittently screaming. Patient is refusing to according. Patient is now threatening staff. When I attempted to de-escalate the situation, patient noted that she would find a gun and shoot me and deal with the consequences. Patient now slamming the door. Code reinaldo called. Physical and chemical restraint initiated to protect the patient and others. [id number] evaluation was performed. I debriefed with staffing and with the patient was performed. Patient appreciative of care. 1130 --patient was reassessed and was still sedated. Patient is tolerating restraints. I will maintain four-point restraint given unclear if psychosis has improved and concern for continued wrist to harming self and others. 1400 --patient was reassessed and continues to exhibit psychotic behavior, intermittently labile, still at risk of harming self and others. Restraints renewed. Versed 4mg IM given. 1445 --patient reassessed and currently resting, tolerating restraints. Sign Out Sign Out Data: Sign Out Comment: History of bipolar, was brought in by police and mental health for psychiatric evaluation. Patient in notable manic psychosis, did require B- 52, 10 of Zyprexa, and 10 of Valium and 5 [facility] police officers to become stable/safe. Patient has been medically cleared. EE paperwork has been filed. Pending second certification in the morning. Last updated by Sam Dow DO at 10/20/21 04:44 Discharge Plan Disposition Patient Disposition: STILL A PATIENT Condition: Serious Discharge Details Clinical Impression: Manic episode, Agitation Primary Care Provider: Chelsi Orr ED Provider: Ky Hinton Home Meds and New Rx's Prescriptions: No Action metformin 500 mg tablet 500 mg PO DAILY albuterol sulfate [ProAir HFA] 90 mcg/actuation HFA aerosol inhaler 2 puff Inhalation Q4H PRN Qty: 1 1RF clonazepam 0.5 MG tablet 0.5 mg PO TID Label Comments: 01-09-17 pt reports that she is instructed to take one tab BID PRN. hb bupropion HCl [Wellbutrin SR] 100 MG tablet extended release 12 hr 150 mg PO DAILY ziprasidone HCl [Geodon] 60 MG capsule 60 mg PO BID Label Comments: 02/05/17 taking 80 mg at hs and 60 mg in the am. 01-09-17 pt reports taking 100 HS and 60 AC. hb olanzapine 5 mg tablet 1 tab PO DAILY Label Comments: TAKE ONE TABLET BY MOUTH EVERY DAY
[2021-10-20] MEDS: diphenhydrAMINE 50 MG/ML VIAL IM (09:05)
[2021-10-20] MEDS: Midazolam 2 MG/2 ML VIAL 4 MG IM ×2 (09:06→19:07)
[2021-10-20] MEDS: Droperidol 5 MG/2 ML VIAL IM ×3 (09:06→16:26)
--- NOTE | 2021-10-20 09:06 | PDOC.ERCMPRO ---
- If Service Date Differs Date of service: 10/20/21 Time of Service: 09:06 Care Management Progress Note S/O: Involuntary Status. Sirena is currently admitted to [facility] for manic psychosis. A: 40 year old female admitted to [facility] on 10/19/21 for Manic Episode, Agitation P: EE paperwork has been filed. Pending second certification in the morning. Sirena will be reassessed by [facility] twice daily. Pt will remain on a 72 hour hold, until she is seen by a psychiatrist who will then determine whether or not she meets criteria for treatment. - Status Status: Involuntary - Reason for Wait Reason for Wait: Inpatient Admission
--- NOTE | 2021-10-20 09:07 | NUR.NOTE ---
Patient began to cry and get upset that she needed to leave because her son was going to kill himself. Patient than began to come out into ER little, naked and proceeded to threaten staff when trying to de-escalate. Sanjay jacobsen called at [phone]. More nursing staff showed up to help. Cousin who is an employee also showed up to help de-escalate patient. Patient was still threatening to staff. Patient sat on bed cooperatively. Than patient attempted to sit up and began to get aggressive. At this time, patient was restrained and given medication by RN. Patient safe in bed with restraints properly placed. Sanjay jacobsen complete at [phone]. Nursing Note:
--- NOTE | 2021-10-20 09:16 | PDOC.CMSAFED ---
- If Service Date Differs Date of service: 10/20/21 Time of Service: 09:16 Care Management Safety Plan Status: Involuntary - Reason for Wait Reason for Wait: Inpatient Admission
--- NOTE | 2021-10-20 09:25 | CMSP_ITS ---
- If Service Date Differs Date of service: 10/20/21 Time of Service: 09:25 Care Management Safety Plan Status: Involuntary - Reason for Wait Reason for Wait: Inpatient Admission INVOLUNTARY FOR INPATIENT PSYCHIATRIC STABILIZATION. Per report, over the last few days the patient (Per the emergency examination documentation and [facility] police) has been having a notable increase in her manic states. She has been impulsive buying, has been calling [facility] police multiple times stating that she is being abused, she was talking to her primary provider stating that she wants a name change, and wants to go travel. She bought $1000 of scratch off tickets and new iPhone over the last few days impulsively. Normally she is gentle, in touch, and kind to others however family states that over the last week she has been abusive to family, out of touch, violent, often speaking in rapid speech, gibberish, and notably aggravated. Last evening all of the symptoms escalated, mental health was asked to assess the patient, and after assessment, the patient was noted to be in an acute manic episode, and she was brought to the ER under emergency examination status. Sirena will not be permitted personal phone calls currently, with the exception of legal outreach by request. Safety plan will be assessed daily and as needed. Involuntary Safety Plan has been established to meet the needs of the patient, and consideration of the care team, to adhere to patient goals, identify restrictions based on behavioral status, address nutrition, and determine allowe d personal belongings, tools for hygiene and personal care. Determine level of activity including ambulation, level of supervision, visitors, and determine privileges based on behaviors and level of engagement by pt. INVOLUNTARY SAFETY PLAN: 1. Will remain on SI/HI precautions. In Paper Clothes, or hospital gown. 2. Will remain in room under direct supervision of one-on-one staff at all times provided by CPSO; MALLIKA, MEMORANDUM STATEMENT CLERK anodizing line operator. 3. May have paper cups, plates, finger foods as well as a cardboard spoon 4. Follow [facility] Management of the Admitted Behavioral Health Patient policy. 5. Comfort bath system only, shower permitted with escort at RN discretion. 6. No personal belongings. 7. Visitors: No visitors at this time. 8. Activities: soft cart items, at RN discretion 9. Bathroom privileges with escort and supervision 10. Phone: limited to legal contact at this time, using [facility] phone, at RN discretion. 11. Due to INVOLUNTARY status, patient is being held at [facility] by the Department of Mental Health ([facility]) until 2nd certification by [facility] Psychiatrist can be performed (within 24 hours). Staff will provide de-escalation support (CPI) as needed. If patient wishes to leave [facility], staff will contact [facility] Crisis Screener ([phone]) and On-Call Fire Equipment Inspector ([phone]) as soon as possible. In the event of elopement, notify [facility] Police ([phone]). Patient is currently involuntarily at [facility]. [facility] Frontline Musical Instrument Mechanic will continue seeking placement. Please contact the Elementary Classroom Teacher Fire Equipment Inspector ([phone]) for any needed changes to Safety Plan. Safety plan has been provided to interdepartmental care team. Patient will be transported by contract accountant at time of discharge.
--- NOTE | 2021-10-20 11:56 | NUR.NOTE ---
Patient stating, If you don't let me out, I will fucking murder you. I have every fucking reason to kill you right now. Let me leave, let me finish this now. I want all of your names so I can charge you guys with restraining me against my will. Nursing Note:
--- NOTE | 2021-10-20 12:01 | NUR.NOTE ---
Patient trying to break out of arm restraints. RN notified. Patient threatening to punch me in the face if I don't let her out right now. Patient cursing and being verbally threatening Nursing Note:
--- NOTE | 2021-10-20 12:18 | NUR.NOTE ---
Patient stating that when she leaves here she's going to do a lot of drugs and crash her car just to . Patient trying to take off telemetry and break wires. Nursing Note:
--- NOTE | 2021-10-20 13:26 | NUR.NOTE ---
Care management in room 1327Nursing Note:
[2021-10-20] MEDS: Midazolam 2 MG/2 ML VIAL 4 MG IVP (13:52)
--- NOTE | 2021-10-20 14:41 | NUR.NOTE ---
Farmer cath inserted by RN at 1435 Nursing Note:
--- NOTE | 2021-10-20 16:00 | RT.EKG_ITS ---
APPROVED REPORT Exam: Resting ECG Reason for Exam: assess QT interval Patient Location: E HR:94 bpm ECG Measurements Heart Rate 94 AXIS HI 144 P 35 QRSd 81 QRS 48 QT 341 T 35 QTc 426 Conclusion Sinus rhythm...normal P axis, V-rate 60- 99 sinus rhythm, normal axis, normal intervals, non ischemic
[2021-10-20] MEDS: LORazepam 20 MG/10 ML VIAL IM (16:27)
--- NOTE | 2021-10-20 16:28 | NUR.NOTE ---
pt removed her left arm restraint with her mouth . it was quickly replaced and pt was medicated as orderd Nursing Note:
[2021-10-20] MEDS: buPROPion 75 MG TAB 150 MG PO (22:26)
[2021-10-20] MEDS: OLANZapine 5 MG TAB PO (22:27)
[2021-10-20] MEDS: ZIPRASIDONE 60 MG PO (22:27)
--- NOTE | 2021-10-21 04:09 | NUR.NOTE ---
Nursing Note:Pt crying, RN notified. RN asked if she needed anything. Pt stated she misses her son and wants to call him. Pt was told she can wait and talk to her son in the morning but not right now. RN went to get tablet. Pt started crying again. CPSO asked her what is wrong? Pt threw hands up in the air and said I don't know. Pt stated she thinks CPSO reminds her of some people she knows. CPSO asked her if that makes her upset and Pt stated No, it is comforting. RN gave pt tablet to use to play music to help cheer her up.
--- NOTE | 2021-10-21 04:25 | NUR.NOTE ---
Nursing Note: Pt stated to CPSO, you are beautiful, I think I know you. Pt keeps saying to CPSO you remind me of some people I know. Pt keeps asking CPSO, can you to come in room?
[2021-10-21] MEDS: OLANZapine 5 MG TAB PO (06:52)
[2021-10-21] MEDS: buPROPion 75 MG TAB 150 MG PO (07:52)
[2021-10-21] MEDS: ZIPRASIDONE 60 MG PO ×2 (07:53→19:26)
--- NOTE | 2021-10-21 08:55 | PDOC.CMSAFED ---
- If Service Date Differs Date of service: 10/21/21 Time of Service: 08:55 Care Management Safety Plan Status: Involuntary - Reason for Wait Reason for Wait: Inpatient Admission INVOLUNTARY FOR INPATIENT PSYCHIATRIC STABILIZATION. Per report, over the last few days the patient (Per the emergency examination documentation and [facility] police) has been having a notable increase in her manic states. She has been impulsive buying, has been calling [facility] police multiple times stating that she is being abused, she was talking to her primary provider stating that she wants a name change, and wants to go travel. She bought $1000 of scratch off tickets and new iPhone over the last few days impulsively. Normally she is gentle, in touch, and kind to others however family states that over the last week she has been abusive to family, out of touch, violent, often speaking in rapid speech, gibberish, and notably aggravated. Last evening all of the symptoms escalated, mental health was asked to assess the patient, and after assessment, the patient was noted to be in an acute manic episode, and she was brought to the ER under emergency examination status. Sirena will not be permitted personal phone calls currently, with the exception of legal outreach by request. Safety plan will be assessed daily and as needed. Involuntary Safety Plan has been established to meet the needs of the patient, and consideration of the care team, to adhere to patient goals, identify restrictions based on behavioral status, address nutrition, and determine allowed personal belongings, tools for hygiene and personal care. Determine level of activity including ambulation, level of supervision, visitors, and determine privileges based on behaviors and level of engagement by pt. INVOLUNTARY SAFETY PLAN: 1. Will remain on SI/HI precautions. In Paper Clothes, or hospital gown. 2. Will remain in room under direct supervision of one-on-one staff at all times provided by CPSO; MALLIKA, CABINET ABRASIVE SANDBLASTER disaster response director. 3. May have paper cups, plates, finger foods as well as a cardboard spoon for meals. 4. Follow [facility] Management of the Admitted Behavioral Health Patient policy. 5. Comfort bath system only, shower permitted with escort at RN discretion. 6. No personal belongings. 7. Visitors: limited to mother (Johanny) and (Arthur) at this time, per RN discretion. 8. Activities: soft cart items, at RN discretion 9. Bathroom privileges with escort and supervision in the ED. 10. Phone: cordless [facility] phone, at RN discretion. 11. Due to INVOLUNTARY status, patient is being held at [facility] by the Department of Mental Health ([facility]) until 2nd certification by [facility] Psychiatrist can be performed (within 24 hours). Staff will provide de-escalation support (CPI) as needed. If patient wishes to leave [facility], staff will contact [facility] Crisis Screener ([phone]) and On-Call Story Writer ([phone]) as soon as possible. In the event of elopement, notify [facility] Police ([phone]). Patient is currently involuntarily at [facility]. [facility] Frontline Behavioral Scientist will continue seeking placement. Please contact the Globe Changer Story Writer ([phone]) for any needed changes to Safety Plan. Safety plan has been provided to interdepartmental care team. Patient will be transported by sap hana developer at time of discharge.
--- NOTE | 2021-10-21 09:32 | NUR.NOTE ---
pt has spoken with psych.Nursing Note:
--- NOTE | 2021-10-21 10:00 | NUR.NOTE ---
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 The patient stated she is getting more aggitated the longer she waits. This travel writer let the patient know that I am not in control of this.
--- NOTE | 2021-10-21 10:10 | NUR.NOTE ---
Nursing Note: Patient stating she is getting aggitated because she wants to go upstairs. RN notified. Patient stated she did not sleep well overnight because she saw people moving things around in her room and would wake up and they were not there
--- NOTE | 2021-10-21 10:13 | ED.PROG_ITS ---
Date of service: 10/21/21 Time of Service: 10:13 Medical Decision Making Received signout from Dr. Dow. Please see his note regarding previous care. Patient was seen by psychiatrist and received her second emergency evaluation certification. She requested nicotine and clonazepam for her nerves. The patient subsequently resisted attempts at redirection and left the emergency room during a code najera. Security and nursing railroad track repair supervisor requested police presence. As of the morning of October 22 patient was fairly calm overnight. She has slowly been improving and has been taking medications by mouth. She remains manic and with poor insight. Over the course of the afternoon on October 22 patient had increasingly manic behavior with flight of ideas, verbal threats and aggressive posturing towards staff. Approximately 1800 she began to leave the ER and attempted to leave hospital grounds. She was refractive to redirection. She demonstrated that she is a danger to herself and the risk of posturing and her history she is a danger to others for physical harm.. Security and a code najera was called. Subsequently state troopers were called, the patient continued to be refractive to redirection and she was placed on a gurney given chemical restraint with Versed, Benadryl, droperidol, and placed in physical restraints as well. She will be signed out this evening to the oncoming physician Dr. Dow. Sign Out Sign Out Data: Sign Out Comment: History of bipolar, was brought in by police and mental health for psychiatric evaluation. Patient in notable manic psychosis, did require B- 52, 10 of Zyprexa, and 10 of Valium and 5 [facility] police officers to become stable/safe. Patient has been medically cleared. EE paperwork has been filed. Pending second certification in the morning. Last updated by Sam Dow DO at 10/20/21 04:44 Sign Out Comment: Patient here for acute psychosis and liban. Patient is currently in physical restraints that we will need to be reassessed at 1642. She recently received Versed 4 mg IM as well as droperidol 5 mg IM. Plan will be for second certification to occur at around 5 PM. Last updated by Ky Hinton MD at 10/20/21 14:47 Sign Out Comment: out of physical restraints, back on home meds; reassessment in AM Last updated by Con Giles MD at 10/20/21 23:04 Sign Out Comment: Patient stable throughout the night. No interventions needed. Still here involuntarily. Last updated by Sam Dow DO at 10/21/21 09:01 Sign Out Comment: Out of physical restraints, second cert performed, EE awaiting placement Last updated by Cisco Garcia MD at 10/21/21 19:06 Sign Out Comment: EE, awaiting placement, no interventions needed throughout the evening. Last updated by Sam Dow DO at 10/22/21 07:42 Discharge Plan Disposition Patient Disposition: STILL A PATIENT Condition: Serious Discharge Details Clinical Impression: Manic episode, Agitation Primary Care Provider: Chelsi Orr ED Provider: Cisco Garcia Home Meds and New Rx's Prescriptions: No Action metformin 500 mg tablet 500 mg PO DAILY albuterol sulfate [ProAir HFA] 90 mcg/actuation HFA aerosol inhaler 2 puff Inhalation Q4H PRN Qty: 1 1RF clonazepam 0.5 MG tablet 0.5 mg PO TID Label Comments: 01-09-17 pt reports that she is instructed to take one tab BID PRN. hb bupropion HCl [Wellbutrin SR] 100 MG tablet extended release 12 hr 150 mg PO DAILY ziprasidone HCl [Geodon] 60 MG capsule 60 mg PO BID Label Comments: 02/05/17 taking 80 mg at hs and 60 mg in the am. antonio 01-09-17 pt reports taking 100 HS and 60 AC. hb olanzapine 5 mg tablet 1 tab PO DAILY Label Comments: TAKE ONE TABLET BY MOUTH EVERY DAY
--- NOTE | 2021-10-21 10:31 | NUR.NOTE ---
Nursing Note: Patient escalating in room. Exited room and stood in hallway stating she wanted her belongings and she wanted to leave. Code ann-marie called at 10:20. Patient asking to talk to her mother on the phone. Patient continued to escalate in hallway and walked out through lobby.
--- NOTE | 2021-10-21 11:08 | NUR.NOTE ---
Addendum entered by Ele Leblanc RN 10/21/21 11:11: code jacobsen complete 1110 Original Note: Nursing Note: Patient walked back into hospital with two state troopers and security. Patient returned to ED9 at 11:00
[2021-10-21] MEDS: clonazePAM 1 MG TAB 2 MG PO ×4 (13:01→22:30)
--- NOTE | 2021-10-21 16:02 | NUR.NOTE ---
pt began pacing in her room at approx 1550 she did aggree to to take some clonapin 2 mg. she is eating some tomatoe soupNursing Note:
[2021-10-21] MEDS: Acetaminophen 500 MG TAB 1000 MG PO (19:26)
[2021-10-21 20:02] VITALS: BP 112/69; PULSE 100; RESP 16; TEMP 36.5; O2SAT 98
[2021-10-22] MEDS: ZIPRASIDONE 60 MG PO ×2 (08:09→22:32)
[2021-10-22] MEDS: clonazePAM 1 MG TAB 2 MG PO ×2 (08:09→22:33)
[2021-10-22] MEDS: buPROPion 75 MG TAB 150 MG PO (08:09)
[2021-10-22] MEDS: OLANZapine 5 MG TAB PO (08:09)
--- NOTE | 2021-10-22 09:53 | PDOC.MHCN ---
Date of service: 10/22/21 Time of Service: 09:35 Mental Health Crisis Note Presenting Issue How did you arrive at the ED and why did you come: Client presented to [facility] ED on 10/19/2021 after a MH warrant was executed. Client is seen today for first daily assessment while awaiting bed placement on EE status. Precipitating Factors Client denies SI/HI at this time as well as intent and plan. Client states only if I needed to defend myself I would shoot somebody. Disposition BEHAVIOR: Client is laying down in hospital bed dressed in paper hospital attire when this marine underwriter arrives via zoom. Client states: I am doing much better than I have been I don't even understand why I am here when I was calling the tension worker about my who I felt was using recreational drugs again and I was scared for my life. EYE CONTACT: Client does not give eye contact, as she states that her eyes are heavy due to the amount of medications she has been taking. MOOD: Agitated AFFECT: labile APPETITE: Good, client reports that she has eaten all of her meals since being at the ED. SLEEP(trouble falling/staying asleep: Client reports that she has not been able to sleep since being at the ED and her sleep was poor before coming to the ED as well. Plan Client will continue to stay at [facility] ED on involuntary status pending admission to an inpatient facility. Client will be assessed 2x daily by [facility] ES until placement is secured. Updated clinical notes will be faxed to [facility], [facility], [place], and [place]. Signature Clinician's Name/Title: Alondra Ho [facility] Emergency Clinician
[2021-10-22] MEDS: Nicotine 4 MG LOZG SUC (11:39)
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
[2021-10-22] MEDS: Acetaminophen 500 MG TAB 1000 MG PO (14:07)
--- NOTE | 2021-10-22 14:16 | CMSP_ITS ---
- If Service Date Differs Date of service: 10/22/21 Time of Service: 14:16 Care Management Safety Plan Status: Involuntary - Reason for Wait Reason for Wait: Inpatient Admission INVOLUNTARY FOR INPATIENT PSYCHIATRIC STABILIZATION. Sirena presents more verbal and alert than past interactions. Verbalizes themes central to restrictions; reports she is struggling to stay in the small ED room and not leave, having to ask to go to the bathroom, etc. Reports feeling she should seek care elsewhere as this is not a mental hospital and mental health is not helping. Reports feeling she would be better at home. Advocates a ppropriately; struggling with not being able to go outside and smoke cigarettes; nicotrol inhaler provided. Phone calls with mother; one did not go well, as noted by Sirena yelling and crying. A few minutes later Sirena called her mother again, and appeared much more calm and spoke clear and concisely; wanting to check on her son. Sirena asked for chocolate; CM provided chocolate as requested. Appears Sirena is having moments of clarity, struggling with restrictions, and regulating emotionally, though appears to be moving in the right direction. Appropriately advocated for returning to previous medication regime prior to hospitalization reports she does not wish to have additional medications at this time. Dr. Garcia attentive and responsive to Sirena's needs and requests; provided dressing to open wound on toe (happened prior to hospitalization), ordered xray of foot due to reports of increased pain. Spoke with Sirena's mother, Johanny throughout the day. More flexible safety plan developed at RN discretion per MD request to support Sirena when being appropriate. Involuntary Safety Plan has been established to meet the needs of the patient, and consideration of the care team, to adhere to patient goals, identify restrictions based on behavioral status, address nutrition, and determine allowed personal belongings, tools for hygiene and personal care. Determine level of activity including ambulation, level of supervision, visitors, and determine privileges based on behaviors and level of engagement by pt. INVOLUNTARY SAFETY PLAN: 1. Will remain on SI/HI precautions. In Paper Clothes, hospital gown or patient's own clothing at RN discretion. 2. Will remain in room under direct supervision of one-on-one staff at all times provided by CPSO; MALLIKA, BRANCH LOGISTICS SUPERVISOR radiagraph operator. 3. May have paper cups, plates, finger foods as well as a cardboard spoon for meals. 4. Follow [facility] Management of the Admitted Behavioral Health Patient policy. 5. Comfort bath system, shower permitted with escort at RN discretion. 6. Personal belongings; permitted patient's own clothes and cellphone at RN discretion, with removal if warranted based on behavior. 7. Visitors: limited to mother (Johanny) and (Arthur) at this time, per RN discretion. 8. Activities: soft cart items, music tablet, television, ambulation outside of room with escort at RN discretion 9. Bathroom privileges with escort in the ED. 10. Phone: cordless [facility] phone, cell phone at RN discretion. 11. Due to INVOLUNTARY status, patient is being held at [facility] by the Department o Mental Health ([facility]). Staff will provide de-escalation support (CPI) as needed. If patient wishes to leave [facility], staff will contact [facility] Crisis Screener ([phone]) and On-Call Civil Design Technician ([phone]) as soon as possible. In the event of elopement, notify [facility] Police ([phone]). Patient is currently involuntarily at [facility]. [facility] Frontline Welder Experimental will continue seeking placement. Please contact the Candy Wrapping Machine Operator Civil Design Technician ([phone]) for any needed changes to Safety Plan. Safety plan has been provided to interdepartmental care team. Patient will be transported by liner reroll tender at time of discharge.
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
--- NOTE | 2021-10-22 15:24 | NUR.NOTE ---
Nursing Note:Pt went back and forth with wanting then refusing medications. initially agreed to take 2mg of anti-anxiety med she refused earlier but dr mayberry tried to quickly increase it to 3mg and when I went back to the pixis to pull the extra she became upset. there was some commotion and I only pulled 1, 1mg pill initially then we back for 2 MORE 1mg pills for the correct dose so there is now a discrepancy. she was upset at the green pills are a high dose and did not want 3. She agreed to only 1 mg. The pixis thinks I pulled 2 pill and then 2 more when he changed the dose and then returned 2 she refused. But I pulled 1 pill thinking they were 2mg - then 2 pills for the correct order but returned the 2 she refused. She requested the phone becuase she thinks her son is in danger and when we gave her the phone she became upset because this phone is tracked and recorded and she wanted to pull the phone apart to prove we were recording her but she said it doesn't matter we are recording her anyway She is now speaking with mother
[2021-10-22] MEDS: clonazePAM 1 MG TAB PO (15:33)
--- NOTE | 2021-10-22 16:09 | NUR.NOTE ---
Nursing Note: dr mayberry asked me to not provide the pt with her belongings so if she eloped it would would.is standing naked n the nurses station and wants her belongings
--- NOTE | 2021-10-22 16:12 | NUR.NOTE ---
Nursing Note:attempting to de-escalate pt. printed a copy of her care plan per pt request and threats to me and to staff - we explained that the [facility] listed her as involuntary and that it was not my choice or the choice of anyone currently here. she is arguing with security as to whether her is able is leave. is standing naked with blanket over shoulders. agreed to go into room.
--- NOTE | 2021-10-22 16:47 | NUR.NOTE ---
Nursing Note:pt responding well to talking. agreed to go back into room and put on pants to get phone call with mother. she spoke briefly and states her mother is on the way. [facility] has just arrived and is up to date with the situation.
[2021-10-22 18:24] VITALS: PULSE 102; RESP 18
--- NOTE | 2021-10-22 18:46 | NUR.NOTE ---
Nursing Note: we spoke to pt outside with police and her friend that arrived. her friend told her that she felt it was best for her to be here and stay. She became very emotional. I again asked if she would consider medication and coming back on her own. She asked for me to describe the meds. She became extremely upset when I said benedryl as thats not prescribed for her and she began yelling. the police spoke with her for 20+ minutes. the whole episode outside last 74 minutes. the police eventually picked her up in 4 points and placed her on the bed. I gave the ordered medications and she is now restrained.
[2021-10-22] MEDS: diphenhydrAMINE 50 MG/ML VIAL IM (18:53)
[2021-10-22] MEDS: Droperidol 5 MG/2 ML VIAL IM (18:54)
[2021-10-22] MEDS: Midazolam 2 MG/2 ML VIAL 4 MG IM (18:54)
--- NOTE | 2021-10-22 21:22 | PDOC.MHCN_ITS ---
Date of service: 10/22/21 Time of Service: 17:22 Mental Health Crisis Note Presenting Issue How did you arrive at the ED and why did you come: Client presented to [facility] ED on 10/19/21 via [facility] after a MH warrant was executed. Clotilde is seen this afternoon for 2nd QMHP screening. Precipitating Factors Client denies SI/HI, intent and plan at this time. Disposition BEHAVIOR: Client is standing in the door way of her room dressed in paper hospital pants and no shirt, except for a blanket around her. Client is hesitant to engage with this group underwriter, however does engage and states that she is going home tonight when her mother arrives to pick her up. When this group underwriter attempts to redirect client and explain that she is on involuntary status and if she walks out she will be brought back in by police she begins to become agitated stating that she was going to do what she wants because [place]. EYE CONTACT: Minimal, she closes her eyes throughout the assessment. MOOD: Anxious/stressed AFFECT: labile/expansive APPETITE: good SLEEP(trouble falling/staying asleep: Client reports that she has not slept since she has been at the hospital, although nursing staff report that she has slept. Plan Client will remain at [facility] ED on involuntary status pending admission to an inpatient facility. Client will be re-assessed by [facility] 2x daily until placement is secured. All paperwork was faxed to hospitals with no bed availability today. Signature Clinician's Name/Title: Alondra Ho [facility] Emergency Clinician
--- NOTE | 2021-10-22 21:52 | NUR.NOTE ---
Nursing Note: pt has 2mg of clonazepam ordered. per dr pereira - give the clonazepam and if she is cooperative with that and her evening ziprasidone, he will dc the restraints. he stated he was not concerned regarding the medication and her current level of sedation. she is alert and oriented when awake. periodically sleeping but easy to arouse.
--- NOTE | 2021-10-23 04:07 | NUR.NOTE ---
Nursing Note: Pt requested nurse or doctor look at her left toe. RN notified. Pt became tearful stating it hurts really bad
[2021-10-23] MEDS: Doxycycline Hyclate 100 MG CAP PO ×2 (05:00→21:30)
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
[2021-10-23 05:38] VITALS: BP 118/83; PULSE 91; RESP 16; TEMP 36.3; O2SAT 94
[2021-10-23] MEDS: Acetaminophen 325 MG TAB (06:21)
[2021-10-23] MEDS: Ibuprofen 800 MG TAB (07:15)
[2021-10-23 07:26] VITALS: BP 133/80; PULSE 80; RESP 16; TEMP 36.3; O2SAT 98
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
[2021-10-23] MEDS: Nicotine 4 MG GUM CH ×3 (08:45→20:03)
[2021-10-23] MEDS: OLANZapine 5 MG TAB PO (09:00)
[2021-10-23] MEDS: buPROPion 75 MG TAB 150 MG PO (09:00)
[2021-10-23] MEDS: clonazePAM 1 MG TAB 2 MG PO ×2 (09:00→21:30)
[2021-10-23] MEDS: ZIPRASIDONE 60 MG PO ×2 (09:00→21:30)
--- NOTE | 2021-10-23 09:15 | NUR.NOTE ---
Nursing Note: Superintendent Quarry spoke with patients mother this am. Mother stated that PT has not had an episode like this in over 20 years. This is also not the worse she has seen her. She states patient is usually very sweet and kind and she is definitely going through a manic state. States that PT has been working with someone with essential oils and believes that the patient has been trying to use those more than taking her medication.
--- NOTE | 2021-10-23 09:41 | PDOC.CMSAFED ---
- If Service Date Differs Date of service: 10/23/21 Time of Service: 09:41 Care Management Safety Plan Status: Involuntary - Reason for Wait Reason for Wait: Inpatient Admission Sirena presents more verbal and alert than past interactions. Verbalizes themes central to restrictions; reports she is struggling to stay in the small ED room and not leave, having to ask to go to the bathroom, etc. Reports feeling she should seek care elsewhere as this is not a mental hospital and mental health is not helping. Reports feeling she would be better at home. Advocates appropriately; struggling with not being able to go outside and smoke cigarettes; nicotrol inhaler provided. Phone calls with mother; one did not go well, as noted by Sirena yelling and crying. A few minutes later Sirena called her mother again, and appeared much more calm and spoke clear and concisely; wanting to check on her son. Sirena asked for chocolate; CM provided chocolate as requested. Appears Sirena is having moments of clarity, struggling with restrictions, and regulating emotionally, though appears to be moving in the right direction. Appropriately advocated for returning to previous medication regime prior to hospitalization reports she does not wish to have additional medications at this time. Dr. Garcia attentive and responsive to Sirena's needs and requests; provided dressing to open wound on toe (happened prior to hospitalization), ordered xray of foot due to reports of increased pain. Spoke with Sirena's mother, Johanny throughout the day. More flexible safety plan developed at RN discretion per MD request to support Sirena when being appropriate. Involuntary Safety Plan has been established to meet the needs of the patient, and consideration of the care team, to adhere to patient goals, identify restrictions based on behavioral status, address nutrition, and determine allowed personal belongings, tools for hygiene and personal care. Determine level of activity including ambulation, level of supervision, visitors, and determine privileges based on behaviors and level of engagement by pt. INVOLUNTARY SAFETY PLAN: 1. Will remain on SI/HI precautions. In Paper Clothes, hospital gown or patient's own clothing at RN discretion. 2. Will remain in room under direct supervision of one-on-one staff at all times provided by CPSO, MEAL ATTENDANT, IMPORT CLERK instructional technology facilitator. 3. May have paper cups, plates, finger foods as well as a cardboard spoon for meals. 4. Follow [facility] Management of the Admitted Behavioral Health Patient policy. 5. Shower permitted with escort at RN discretion. 6. Personal belongings: permitted patient's own clothes and cellphone at RN discretion, with removal if warranted based on behavior. 7. Visitors: limited to mother (Johanny) and (Arthur) at this time, per RN discretion. 8. Activities: soft cart items, music tablet, television, ambulation outside of room with escort at RN discretion. 9. Bathroom privileges with escort in the ED. 10. Phone: cordless [facility] phone, cell phone at RN discretion. 11. Due to INVOLUNTARY status, patient is being held at [facility] by the Department of Mental Health ([facility]). Staff will provide de-escalation support (CPI) as needed. If patient wishes to leave [facility], staff will contact [facility] Crisis Screener ([phone]) and On-Call Firestopper Installer ([phone]) as soon as possible. In the event of elopement, notify [facility] Police ([phone]). Patient is currently involuntarily at [facility]. [facility] Frontline Splicer Machine Operator will continue seeking placement. Please contact the Glass Mechanic Firestopper Installer ([phone]) for any needed changes to Safety Plan. Safety plan has been provided to interdepartmental care team. Patient will be transported by network associate at time of discharge.
--- NOTE | 2021-10-23 10:00 | W.EDPROG ---
Date of service: 10/23/21 Time of Service: 10:00 Medical Decision Making patient still waiting placement, is in her room calm and cooperative currently. Will continue to monitor until placement is found Sign Out Sign Out Data: Sign Out Comment: History of bipolar, was brought in by police and mental health for psychiatric evaluation. Patient in notable manic psychosis, did require B-52, 10 of Zyprexa, and 10 of Valium and 5 [facility] police officers to become stable/safe. Patient has been medically cleared. EE paperwork has been filed. Pending second certification in the morning. Last updated by Sam Dow DO at 10/20/21 04:44 Sign Out Comment: Patient here for acute psychosis and liban. Patient is currently in physical restraints that we will need to be reassessed at 1642. She recently received Versed 4 mg IM as well as droperidol 5 mg IM. Plan will be for second certification to occur at around 5 PM. Last updated by Ky Hinton MD at 10/20/21 14:47 Sign Out Comment: out of physical restraints, back on home meds; reassessment in AM Last updated by Con Giles MD at 10/20/21 23:04 Sign Out Comment: Patient stable throughout the night. No interventions needed. Still here involuntarily. Last updated by Sam Dow DO at 10/21/21 09:01 Sign Out Comment: Out of physical restraints, second cert performed, EE awaiting placement Last updated by Cisco Garcia MD at 10/21/21 19:06 Sign Out Comment: EE, awaiting placement, no interventions needed throughout the evening. Last updated by Sam Dow DO at 10/22/21 07:42 Sign Out Comment: Patient eloped,became agreesive with staff and given chemical and physical restraint approx 1800 Last updated by Cisco Garcia MD at 10/22/21 19:51 Sign Out Comment: Stable throughout the evening. Does have a small burn on the great toe of the left foot. Band-Aid was applied. Patient refused tetanus shot. Doxycycline was started. Last updated by Sam Dow DO at 10/23/21 07:19 Sign Out Comment: EE started on doxy for left foot wound infection Last updated by Jatin Phelan MD at 10/23/21 08:18 Discharge Plan Disposition Patient Disposition: STILL A PATIENT Condition: Serious Discharge Details Clinical Impression: Manic episode, Agitation, Cellulitis of great toe, left Primary Care Provider: Chelsi Orr ED Provider: Jatin Phelan Home Meds and New Rx's Prescriptions: No Action metformin 500 mg tablet 500 mg PO DAILY albuterol sulfate [ProAir HFA] 90 mcg/actuation HFA aerosol inhaler 2 puff Inhalation Q4H PRN Qty: 1 1RF clonazepam 0.5 MG tablet 0.5 mg PO TID Label Comments: 01-09-17 pt reports that she is instructed to take one tab BID PRN. hb bupropion HCl [Wellbutrin SR] 100 MG tablet extended release 12 hr 150 mg PO DAILY ziprasidone HCl [Geodon] 60 MG capsule 60 mg PO BID Label Comments: 02/05/17 taking 80 mg at hs and 60 mg in the am. antonio 01-09-17 pt reports taking 100 HS and 60 AC. hb olanzapine 5 mg tablet 1 tab PO DAILY Label Comments: TAKE ONE TABLET BY MOUTH EVERY DAY
--- NOTE | 2021-10-23 10:01 | PDOC.ERCMPRO ---
- If Service Date Differs Date of service: 10/23/21 Time of Service: 10:01 Care Management Progress Note S/O: Sirena is calm and tearful but appropriate when CM meets with her today. She shares that she left the hospital yesterday and was brought back by police. She states she is feeling much better today and says she should never have left the way she did yesterday. Sirena talks about her mother and describes her relationship with her mom as strained. She continues to report decreased sleep and increased appetite. CM will continue to follow. A: Sirena remains at [facility] awaiting an involuntary psychiatric placement. P: Referrals are faxed to [facility], [facility], [facility], and [facility] for review. There are no available beds today. Sirena will remain at [facility] and will be reassessed twice daily by [facility] until a psychiatric bed can be secured for her or her mental status improves enough for her to be able to enter into a safety plan and return home with outpatient follow-up. - Status Status: Involuntary - Reason for Wait Reason for Wait: Inpatient Admission
--- NOTE | 2021-10-23 13:39 | MHPN_ITS ---
Date of service: 10/23/21 Time of Service: 13:39 Mental Health Emergency Note Release NK release signed:: No Reason for Visit Client presented at [facility] ED on 10/19/2021 after a MH warrant was executed. Client is seen today for [address] [place] [address] daily screening while awaiting involuntary hospitalization. In the last 2 weeks has the pt presented for ES prior to today?: No Client Information Client is: New Well Housed: Yes Non Suicidal Self Injury Current: No History: No Safety Risk/Harm to Self or Others Current Ideation to Harm Self or Others: No Risk: Does risk to harm exist?: yes. Access to means: Yes. Types of Means: Medication (has access to her medications at home but not while at the ED. ). Counseling provided: No Risk: Low Risk Asssessment/Mental Status Appearance: Disheveled Attitude: Cooperative and Friendly Behavior: Unremarkable Speech: Normal Affect: Cogruent with mood Mood: Anxious Thought process: Goal directed Hallucinations: No Delusions: No Attention: Unremarkable Perception: Not impaired Orientation: Fully orientated Memory: Intact Insight: Fair Judgement: Fair Neurovegetative Symptoms Sleep: Decrease Appetitie: Increase Interests: No change Energy: No change Libido: Not applicable Substance Use: Do you use nicotine?: No Have you used substances in the last 7 days?: No Additional Issues: Assaultive/Threatening Behavior: No Medical Concerns: No Client engaged in active self harm w/weapon: No Threatening to run away: No Child reported abuse/neglect: No Voluntarily presenting for services: No Domestic violence is a concern: No Extreme Psychosis or extreme behavior is present: No Impression No to extreme behavior however, has only been about 12 hours without any. Plan/Disposition Recommended Disposition: Other (Still seeking inpaitent treatment. ). Plan: Client will remain at [facility] pending admission or continued improvement in emotional and behavioral impulses as well as improved insight and judgement where she could be safety planned home with follow up. Client will be assessed twice daily until such time by [facility].? Person reported agreement to plan: Yes Facilities contacted if Applicable [facility] (no beds available ) Not accepted, (no) Other (no beds avalable ) [facility] Not accepted, Other (Only accepting in house ) [facility] Not accepted, Other (Only accepting in house and no level one beds. ), [facility] Not accepted, [facility] (Client is too acute ) Reports/communication Outcome discussed with: ED/Personnel (Verbal pass over done with ED doctor as well as nurse and care manger before leaving ED.) Final Disposition/Discharge Transportation Checklist completed and faxed: No
[2021-10-23] MEDS: Ibuprofen 800 MG TAB PO (19:20)
--- NOTE | 2021-10-23 19:21 | NUR.NOTE ---
Nursing Note: Patient allow to use cell and have mom and visit per provider. Must be supervised. Discussed with patient, compliant with plan of care.
[2021-10-24] MEDS: Ibuprofen 800 MG TAB PO (04:36)
[2021-10-24] MEDS: traZODone 100 MG TAB PO (04:36)
[2021-10-24] MEDS: Nicotine 4 MG GUM CH ×3 (07:36→20:01)
[2021-10-24] MEDS: OLANZapine 5 MG TAB PO (07:46)
[2021-10-24] MEDS: Doxycycline Hyclate 100 MG CAP PO ×2 (07:46→21:12)
[2021-10-24] MEDS: clonazePAM 1 MG TAB 2 MG PO ×2 (07:46→21:13)
[2021-10-24] MEDS: buPROPion 75 MG TAB 150 MG PO (07:46)
[2021-10-24] MEDS: ZIPRASIDONE 60 MG PO ×2 (07:47→21:13)
--- NOTE | 2021-10-24 08:27 | ED.PROG_ITS ---
Date of service: 10/24/21 Time of Service: 08:27 Medical Decision Making pt still on involuntary status, has not had a code jacobsen for two days and has been much more calm and cooperative, has no acute complaints this morning, is apologizing for her behavior earlier in her stay. Will continue to monitor Sign Out Sign Out Data: Sign Out Comment: History of bipolar, was brought in by police and mental health for psychiatric evaluation. Patient in notable manic psychosis, did require B- 52, 10 of Zyprexa, and 10 of Valium and 5 [facility] police officers to become stable/safe. Patient has been medically cleared. EE paperwork has been filed. Pending second certification in the morning. Last updated by Sma Dow DO at 10/20/21 04:44 Sign Out Comment: EE, on abx for toe Last updated by Cisco Garcia MD at 10/23/21 22:37 Sign Out Comment: EE; no events overnight, awaiting placement; given trazadone in early AM Last updated by Con Giles MD at 10/24/21 07:54 Sign Out Comment: Patient here for acute psychosis and liban. Patient is currently in physical restraints that we will need to be reassessed at 1642. She recently received Versed 4 mg IM as well as droperidol 5 mg IM. Plan will be for second certification to occur at around 5 PM. Last updated by Ky Hinton MD at 10/20/21 14:47 Sign Out Comment: out of physical restraints, back on home meds; reassessment in AM Last updated by Con Giles MD at 10/20/21 23:04 Sign Out Comment: Patient stable throughout the night. No interventions needed. Still here involuntarily. Last updated by Sam Dow DO at 10/21/21 09:01 Sign Out Comment: Out of physical restraints, second cert performed, EE awaiting placement Last updated by Cisco Garcia MD at 10/21/21 19:06 Sign Out Comment: EE, awaiting placement, no interventions needed throughout the evening. Last updated by Sam Dow DO at 10/22/21 07:42 Sign Out Comment: Patient eloped,became agreesive with staff and given chemical and physical restraint approx 1800 Last updated by Cisco Garcia MD at 10/22/21 19:51 Sign Out Comment: Stable throughout the evening. Does have a small burn on the great toe of the left foot. Band-Aid was applied. Patient refused tetanus shot. Doxycycline was started. Last updated by Sam Dow DO at 10/23/21 07:19 Sign Out Comment: EE started on doxy for left foot wound infection Last updated by Jatin Phelan MD at 10/23/21 08:18 Discharge Plan Disposition Patient Disposition: STILL A PATIENT Condition: Serious Discharge Details Clinical Impression: Manic episode, Agitation, Cellulitis of great toe, left Primary Care Provider: Chelsi Orr ED Provider: Jatin Phelan Home Meds and New Rx's Prescriptions: No Action metformin 500 mg tablet 500 mg PO DAILY albuterol sulfate [ProAir HFA] 90 mcg/actuation HFA aerosol inhaler 2 puff Inhalation Q4H PRN Qty: 1 1RF clonazepam 0.5 MG tablet 0.5 mg PO TID Label Comments: 01-09-17 pt reports that she is instructed to take one tab BID PRN. hb bupropion HCl [Wellbutrin SR] 100 MG tablet extended release 12 hr 150 mg PO DAILY ziprasidone HCl [Geodon] 60 MG capsule 60 mg PO BID Label Comments: 02/05/17 taking 80 mg at hs and 60 mg in the am. antonio 01-09-17 pt reports taking 100 HS and 60 AC. hb olanzapine 5 mg tablet 1 tab PO DAILY Label Comments: TAKE ONE TABLET BY MOUTH EVERY DAY
[2021-10-24] MEDS: Acetaminophen 500 MG TAB 1000 MG PO ×2 (08:55→21:14)
[2021-10-24] MEDS: Bacitracin 1 PACKET TP ×3 (09:12→21:12)
--- NOTE | 2021-10-24 09:21 | PDOC.CMSAFED ---
- If Service Date Differs Date of service: 10/24/21 Time of Service: 09:21 Care Management Safety Plan Status: Involuntary - Reason for Wait Reason for Wait: Inpatient Admission Involuntary Safety Plan has been established to meet the needs of the patient, and consideration of the care team, to adhere to patient goals, identify restrictions based on behavioral status, address nutrition, and determine allowed personal belongings, tools for hygiene and personal care. Determine level of activity including ambulation, level of supervision, visitors, and determine privileges based on behaviors and level of engagement by pt. A huddle is held at 9:[address] Rojo, ED provider, Melony, nursing supervisor engine assembly, Angela, charge nurse, Margot, RN, and ANTON Gamble, in attendance. INVOLUNTARY SAFETY PLAN: 1. Will remain on SI/HI precautions. In Paper Clothes. 2. Will remain in room under direct supervision of one-on-one staff at all times provided by [employer], MALLIKA, VEGETABLES COOK dish network installer. 3. May have paper cups, plates, finger foods as well as a cardboard spoon for meals. 4. Follow [facility] Management of the Admitted Behavioral Health Patient policy. 5. Shower permitted with escort at RN discretion. 6. Personal belongings: limited to nipple and nose rings. 7. Visitors: limited to mother (Johanny) and (Arthur) at this time, per RN discretion. 8. Activities: soft cart items, music tablet, television, and other activities at RN discretion. 9. Bathroom privileges with escort in the ED. 10. Phone: cordless [facility] phone at RN discretion. May use cell phone to pay bills at RN discretion. 11. Due to INVOLUNTARY status, patient is being held at [facility] by the Department of Mental Health ([facility]). Staff will provide de-escalation support (CPI) as needed. If patient wishes to leave [facility], staff will contact [facility] Crisis Screener ([phone]) and On-Call Engineer Rf Deployment ([phone]) as soon as possible. In the event of elopement, notify [facility] Police ([phone]). Patient is currently involuntarily at [facility]. [facility] Frontline Horse Wrangler will continue seeking placement. Please contact the Chief Telephone Operator Engineer Rf Deployment ([phone]) for any needed changes to Safety Plan. Safety plan has been provided to interdepartmental care team. Patient will be transported by deputy sheriff/investigator at time of discharge.
--- NOTE | 2021-10-24 09:21 | CMSP_ITS ---
- If Service Date Differs Date of service: 10/24/21 Time of Service: 09:21 Care Management Safety Plan Status: Involuntary - Reason for Wait Reason for Wait: Inpatient Admission Involuntary Safety Plan has been established to meet the needs of the patient, and consideration of the care team, to adhere to patient goals, identify restrictions based on behavioral status, address nutrition, and determine allowed personal belongings, tools for hygiene and personal care. Determine level of activity including ambulation, level of supervision, visitors, and determine privileges based on behaviors and level of engagement by pt. A huddle is held at 9:[address] Rojo, ED provider, Melony, nursing banquet supervisor, Angela, charge nurse, Margot, RN, and ANTON Gamble, in attendance. INVOLUNTARY SAFETY PLAN: 1. Will remain on SI/HI precautions. In Paper Clothes. 2. Will remain in room under direct supervision of one-on-one staff at all times provided by [employer], MALILKA, ENGINEERING SCIENTIST technology auditor. 3. May have paper cups, plates, finger foods as well as a cardboard spoon for meals. 4. Follow [facility] Management of the Admitted Behavioral Health Patient policy. 5. Shower permitted with escort at RN discretion. 6. Personal belongings: limited to nipple and nose rings. 7. Visitors: limited to mother (Johanny) and (Arthur) at this time, per RN discretion. 8. Activities: soft cart items, music tablet, television, and other activities at RN discretion. 9. Bathroom privileges with escort in the ED. 10. Phone: cordless [facility] phone at RN discretion. May use cell phone to pay bills at RN discretion. 11. Due to INVOLUNTARY status, patient is being held at [facility] by the Department of Mental Health ([facility]). Staff will provide de-escalation support (CPI) as needed. If patient wishes to leave [facility], staff will contact [facility] Crisis Screener ([phone]) and On-Call Miner Placer ([phone]) as soon as possible. In the event of elopement, notify [facility] Police ([phone]). Patient is currently involuntarily at [facility]. [facility] Frontline Specialist Wound Care will continue seeking placement. Please contact the Supervisor Production Managing Miner Placer ([phone]) for any needed changes to Safety Plan. Safety plan has been provi ded to interdepartmental care team. Patient will be transported by [facility] at time of discharge.
--- NOTE | 2021-10-24 09:26 | PDOC.ERCMPRO ---
- If Service Date Differs Date of service: 10/24/21 Time of Service: 09:26 Care Management Progress Note S/O: Sirena is pacing in her room when CM comes to meet with her. She reports feeling anxious and accepts fidget items and a deck of cards from CM to help her occupy her time. She appropriately expresses how difficult it is for her to stay in the small ED room. Sirena is unable to sleep at night and she attributes this to being away from home, though family reported she had not slept for several days prior to coming to the hospital. Sirena continues to be pleasant, cooperative, and restless. A: Sirena remains at [facility] awaiting an involuntary psychiatric placement. P: Referrals are faxed to [facility], [facility], [facility], and [facility][Note 2] for review. Sirena will remain at [facility] and will be reassessed twice daily by [facility] until a psychiatric bed can be secured for her or her mental status improves enough for her to be able to enter into a safety plan and return home with outpatient follow-up. CM will continue to follow. - Status Status: Involuntary - Reason for Wait Reason for Wait: Inpatient Admission
[2021-10-24] MEDS: Ibuprofen 600 MG TAB PO ×2 (12:39→21:12)
--- NOTE | 2021-10-24 14:13 | NUR.NOTE ---
Nursing Note: Pt mom in to visit, also Leticia in room, nicotine cart & gum as well as new pair of cloth bottoms.
[2021-10-24] MEDS: Valproic Acid 250 MG CAP 500 MG PO (21:14)
[2021-10-25] MEDS: Bacitracin 1 PACKET TP ×2 (08:38→20:20)
[2021-10-25] MEDS: buPROPion 75 MG TAB 150 MG PO (08:38)
[2021-10-25] MEDS: Doxycycline Hyclate 100 MG CAP PO ×2 (08:38→20:20)
[2021-10-25] MEDS: clonazePAM 1 MG TAB 2 MG PO ×2 (08:38→20:20)
[2021-10-25] MEDS: ZIPRASIDONE 60 MG PO ×2 (08:39→20:21)
[2021-10-25] MEDS: Acetaminophen 500 MG TAB 1000 MG PO ×2 (09:17→20:20)
--- NOTE | 2021-10-25 09:35 | INFECTION ---
Pt. asked for her phone to pay bills. Gave pt. her phone for 15 minutes.
--- NOTE | 2021-10-25 13:26 | PDOC.MHPN2 ---
Date of service: 10/24/21 Time of Service: 13:26 PHQ-9 Over the last 2 weeks, how often have you been bothered by any of the following problems? 1. Little interest or pleasure in doing things: not at all 2. Feeling down, depressed, or hopeless: nearly every day 3. Trouble falling or staying asleep, or sleeping too much: nearly every day 4. Feeling tired or having little energy: more than half the days 5. Poor appetite or overeating: not at all 6. Feeling bad about yourself - or that you are a failure or have let yourself and your family down: not at all 7. Trouble concentrating on things, such as reading the newspaper or watching television: several days 8. Moving or speaking so slowly that other people could have noticed? - Or the opposite - being so fidgety or restless that you have been moving around a lot more than usual: nearly every day 9. Thoughts that you would be better off or of hurting yourself in some way: not at all Total score: 12 If you checked off any problems, how difficult have these problems made it for you to do your work, take care of things at home, or get along with other people?: extremely difficult Source: Developed by Drs. Hari Kumar, Shana Waller, Dann Olivares and colleagues, with an educational hossein from [employer]. Mental Health Emergency Note Release [facility] release signed:: No Reason for Visit Client presented at [facility] ED on 10/19/2021 after a MH warrant was executed. Client is seen today for [address] [place] [address] daily screening while awaiting involuntary hospitalization. In the last 2 weeks has the pt presented for ES prior to today?: No Client Information Client is: New Well Housed: Yes Current Treatment Team if applicable First care team sports sales associate: Name: Carolyn Gallego Role: PMHNP Contact Info: [phone] Non Suicidal Self Injury Current: No History: No Safety Risk/Harm to Self or Others Current Ideation to Harm Self or Others: No Risk: Does risk to harm exist?: No Risk: N/A Duty to warn indicated: No Asssessment/Mental Status Appearance: Disheveled and Inappropriate (Client's pants are ripping out due to the hospital not having large enough ones for her. ) Attitude: Cooperative and Hostile (Hostile only when her mother was there or when talking about her belief that she is not manic.) Behavior: Agitated Speech: Normal Affect: Cogruent with mood Mood: Sad, Stressed, Depressed and Irritable Thought process: Goal directed and Poverty of content Hallucinations: No Delusions: No Attention: Wandering Perception: Not impaired Orientation: Fully orientated Memory: Intact Insight: Fair Judgement: Poor Neurovegetative Symptoms Sleep: Decrease Appetitie: Increase Interests: No change Energy: No change Libido: Not applicable Substance Use: Do you use nicotine?: No Have you used substances in the last 7 days?: No Additional Issues: Assaultive/Threatening Behavior: No Medical Concerns: No Client engaged in active self harm w/weapon: No Threatening to run away: No Child reported abuse/neglect: No Voluntarily presenting for services: No Domestic violence is a concern: No Extreme Psychosis or extreme behavior is present: Yes Impression Client is still meeting criteria for an EE. This could change however, if she were to have drastic changes in her symptom's to the point we could safely safety plan home. Resources Reosurces reviewed and given:: Other Plan/Disposition Recommended Disposition: Hospitalization facilities contacted. Plan: Collateral was had with mother who was at the ED, as well as care management and ED staff. This clinician requested that she be able to wear spandex and long t-shirts as the ED scrubs are not holding up for her. This will have to be discussed in the next day's huddle. Client will remain at [facility] until enough of her symptoms have decreased that she can safety plan home or until she is accepted by a receiving psychiatric hospital.? Person reported agreement to plan: No Facilities contacted if Applicable Other: Other (No change in placement from this am. ) Reports/communication Outcome discussed with: ED/Personnel Final Disposition/Discharge Final accepting facility/transferred to: [facility] Transportation Checklist completed and faxed: No
--- NOTE | 2021-10-25 13:34 | CMSP_ITS ---
- If Service Date Differs Date of service: 10/25/21 Time of Service: 13:34 Care Management Safety Plan Status: Involuntary - Reason for Wait Reason for Wait: Inpatient Admission Involuntary Safety Plan has been established to meet the needs of the patient, and consideration of the care team, to adhere to patient goals, identify restrictions based on behavioral status, address nutrition, and determine allowed personal belongings, tools for hygiene and personal care. Determine level of activity including ambulation, level of supervision, visitors, and determine privileges based on behaviors and level of engagement by pt. A huddle is held at 12:[address] Garcia, ED provider, Carol, nursing greenskeeper supervisor, Verona, charge nurse, Michelle, RN, Leticia, [facility], and ANTON Gamble, in attendance. INVOLUNTARY SAFETY PLAN: 1. Will remain on SI/HI precautions. In Paper Clothes or paper top and patient's own leggings at RN discretion. 2. Will remain in room under direct supervision of one-on-one staff at all times provided by [employer], MALLIKA, ANALYTICAL CONSULTANT process camera operator. 3. May have paper cups, plates, finger foods as well as a cardboard spoon for meals. 4. Follow [facility] Management of the Admitted Behavioral Health Patient policy. 5. Shower permitted with escort at RN discretion. 6. Personal belongings: limited to nipple and nose rings and leggings at RN discretion. 7. Visitors: limited to mother (Johanny) and (Arthur) at this time, per RN discretion. 8. Activities: soft cart items, music tablet, television, and other activities at RN discretion. 9. Bathroom privileges with escort in the ED. 10. Phone: cordless [facility] phone at RN discretion. May use cell phone to pay bills at RN discretion. 11. Due to INVOLUNTARY status, patient is being held at [facility] by the Department of Mental Health ([facility]). Staff will provide de-escalation support (CPI) as needed. If patient wishes to leave [facility], staff will contact [facility] Crisis Screener ([phone]) and On-Call Injection Machine Operator ([phone]) as soon as possible. In the event of elopement, notify [facility] Police ([phone]). Patient is currently involuntarily at [facility]. [facility] Frontline Software Engineer Developer will continue seeking placement. Please contact the Documentation Liaison Injection Machine Operator ([phone]) for any needed changes to Safety Plan. Safety plan has been provided to interdepartmental care team. Patient will be transported by boiler plant worker at time of discharge.
--- NOTE | 2021-10-25 13:34 | PDOC.CMSAFED ---
- If Service Date Differs Date of service: 10/25/21 Time of Service: 13:34 Care Management Safety Plan Status: Involuntary - Reason for Wait Reason for Wait: Inpatient Admission Involuntary Safety Plan has been established to meet the needs of the patient, and consideration of the care team, to adhere to patient goals, identify restrictions based on behavioral status, address nutrition, and determine allowed personal belongings, tools for hygiene and personal care. Determine level of activity including ambulation, level of supervision, visitors, and determine privileges based on behaviors and level of engagement by pt. A huddle is held at 12:[address] Garcia, ED provider, Carol, nursing supervisor car installations, Verona, charge nurse, Michelle, RN, Leticia, [facility], and ANTON Gamble, in attendance. INVOLUNTARY SAFETY PLAN: 1. Will remain on SI/HI precautions. In Paper Clothes or paper top and patient's own leggings at RN discretion. 2. Will remain in room under direct supervision of one-on-one staff at all times provided by CPSO, MALLIKA, SEO INTER[employer] youth program director. 3. May have paper cups, plates, finger foods as well as a cardboard spoon for meals. 4. Follow [facility] Management of the Admitted Behavioral Health Patient policy. 5. Shower permitted with escort at RN discretion. 6. Personal belongings: limited to nipple and nose rings and leggings at RN discretion. 7. Visitors: limited to mother (Johanny) and (Arthur) at this time, per RN discretion. 8. Activities: soft cart items, music tablet, television, and other activities at RN discretion. 9. Bathroom privileges with escort in the ED. 10. Phone: cordless [facility] phone at RN discretion. May use cell phone to pay bills at RN discretion. 11. Due to INVOLUNTARY status, patient is being held at [facility] by the Department of Mental Health ([facility]). Staff will provide de-escalation support (CPI) as needed. If patient wishes to leave [facility], staff will contact [facility] Crisis Screener ([phone]) and On-Call Supervisor Fiber Locking ([phone]) as soon as possible. In the event of elopement, notify [facility] Police ([phone]). Patient is currently involuntarily at [facility]. [facility] Frontline Eating Disorder Psychologist will continue seeking placement. Please contact the Professor Of Biostatistics Supervisor Fiber Locking ([phone]) for any needed changes to Safety Plan. Safety plan has been provided to interdepartmental care team. Patient will be transported by welder apprentice combination at time of discharge.
--- NOTE | 2021-10-25 14:43 | PDOC.MHPN2 ---
Date of service: 10/25/21 Time of Service: 14:43 PHQ-9 Over the last 2 weeks, how often have you been bothered by any of the following problems? 1. Little interest or pleasure in doing things: not at all 2. Feeling down, depressed, or hopeless: nearly every day 3. Trouble falling or staying asleep, or sleeping too much: nearly every day 4. Feeling tired or having little energy: more than half the days 5. Poor appetite or overeating: not at all 6. Feeling bad about yourself - or that you are a failure or have let yourself and your family down: not at all 7. Trouble concentrating on things, such as reading the newspaper or watching television: several days 8. Moving or speaking so slowly that other people could have noticed? - Or the opposite - being so fidgety or restless that you have been moving around a lot more than usual: nearly every day 9. Thoughts that you would be better off or of hurting yourself in some way: not at all Total score: 12 If you checked off any problems, how difficult have these problems made it for you to do your work, take care of things at home, or get along with other people?: extremely difficult Source: Developed by Drs. Hari Kumar, Shana Waller, Dann Olivares and colleagues, with an educational hossein from [employer]. Mental Health Emergency Note Release [facility] release signed:: No Reason for Visit Client presented at [facility] ED on 10/19/2021 after a MH warrant was executed. Client is seen today for [address] [place] [address] daily screening while awaiting involuntary hospitalization. In the last 2 weeks has the pt presented for ES prior to today?: No Client Information Client is: New Well Housed: Yes Current Treatment Team if applicable First care team primary care physician: Name: Carolyn Gallego Role: PMHNP Contact Info: [phone] Non Suicidal Self Injury Current: No History: No Safety Risk/Harm to Self or Others Current Ideation to Harm Self or Others: No Risk: Does risk to harm exist?: No Risk: N/A Duty to warn indicated: No Asssessment/Mental Status Appearance: Inappropriate Attitude: Cooperative and Friendly Behavior: Unremarkable Speech: Normal Affect: Cogruent with mood Mood: Stressed and Anxious Thought process: Goal directed Hallucinations: No Delusions: No Attention: Unremarkable Perception: Not impaired Orientation: Fully orientated Memory: Intact Insight: Fair Judgement: Poor Neurovegetative Symptoms Sleep: No change (Client continues to struggle with sleep) Appetitie: No change Interests: No change Energy: No change Libido: Not applicable Substance Use: Do you use nicotine?: Yes Have you used substances in the last 7 days?: No Additional Issues: Assaultive/Threatening Behavior: No Medical Concerns: No Client engaged in active self harm w/weapon: No Threatening to run away: No Child reported abuse/neglect: No Voluntarily presenting for services: No Domestic violence is a concern: No Extreme Psychosis or extreme behavior is present: No Plan/Disposition Recommended Disposition: Hospitalization No. Reports/communication Outcome discussed with: ED/Personnel Final Disposition/Discharge Transportation Checklist completed and faxed: No
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
--- NOTE | 2021-10-25 16:36 | ED.PROG_ITS ---
Date of service: 10/25/21 Time of Service: 16:36 Medical Decision Making pt still pending placement and is involuntary, calm and cooperative now, will continue to monitor Sign Out Sign Out Data: Sign Out Comment: History of bipolar, was brought in by police and mental health for psychiatric evaluation. Patient in notable manic psychosis, did require B- 52, 10 of Zyprexa, and 10 of Valium and 5 [facility] police officers to become stable/safe. Patient has been medically cleared. EE paperwork has been filed. Pending second certification in the morning. Last updated by Sam Dow DO at 10/20/21 04:44 Sign Out Comment: EE, on abx for toe Last updated by Cisco Garcia MD at 10/23/21 22:37 Sign Out Comment: EE; no events overnight, awaiting placement; given trazadone in early AM Last updated by Con Giles MD at 10/24/21 07:54 Sign Out Comment: no issues during the day, change olanzapine to 20mg qhs from 5mg daily to hopefully help sleep Last updated by Jatin Phelan MD at 10/24/21 19:44 Sign Out Comment: Stable throughout the evening. Pending mental health reassessment. Last updated by Sam Dow DO at 10/25/21 07:15 Sign Out Comment: Awaits placement Last updated by Cisco Garcia MD at 10/25/21 14:45 Sign Out Comment: Patient here for acute psychosis and liban. Patient is currently in physical restraints that we will need to be reassessed at 1642. She recently received Versed 4 mg IM as well as droperidol 5 mg IM. Plan will be for second certification to occur at around 5 PM. Last updated by Ky Hinton MD at 10/20/21 14:47 Sign Out Comment: out of physical restraints, back on home meds; reassessment in AM Last updated by Con Giles MD at 10/20/21 23:04 Sign Out Comment: Patient stable throughout the night. No interventions needed. Still here involuntarily. Last updated by Sam Dow DO at 10/21/21 09:01 Sign Out Comment: Out of physical restraints, second cert performed, EE awaiting placement Last updated by Cisco Garcia MD at 10/21/21 19:06 Sign Out Comment: EE, awaiting placement, no interventions needed throughout the evening. Last updated by Sam Dow DO at 10/22/21 07:42 Sign Out Comment: Patient eloped,became agreesive with staff and given chemical and physical restraint approx 1800 Last updated by Cisco Garcia MD at 10/22/21 19:51 Sign Out Comment: Stable throughout the evening. Does have a small burn on the great toe of the left foot. Band-Aid was applied. Patient refused tetanus shot. Doxycycline was started. Last updated by Sam Dow DO at 10/23/21 07:19 Sign Out Comment: EE started on doxy for left foot wound infection Last updated by Jatin Phelan MD at 10/23/21 08:18 Discharge Plan Disposition Patient Disposition: STILL A PATIENT Condition: Serious Discharge Details Clinical Impression: Manic episode, Agitation, Cellulitis of great toe, left Primary Care Provider: Chelsi Orr ED Provider: Jatin Phelan Home Meds and New Rx's Prescriptions: No Action metformin 500 mg tablet 500 mg PO DAILY albuterol sulfate [ProAir HFA] 90 mcg/actuation HFA aerosol inhaler 2 puff Inhalation Q4H PRN Qty: 1 1RF clonazepam 0.5 MG tablet 0.5 mg PO TID Label Comments: 01-09-17 pt reports that she is instructed to take one tab BID PRN. hb bupropion HCl [Wellbutrin SR] 100 MG tablet extended release 12 hr 150 mg PO DAILY ziprasidone HCl [Geodon] 60 MG capsule 60 mg PO BID Label Comments: 02/05/17 taking 80 mg at hs and 60 mg in the am. antonio 01-09-17 pt reports taking 100 HS and 60 AC. hb olanzapine 5 mg tablet 1 tab PO DAILY Label Comments: TAKE ONE TABLET BY MOUTH EVERY DAY
[2021-10-25] MEDS: Nicotine 4 MG LOZG SUC (16:37)
[2021-10-25] MEDS: Ibuprofen 600 MG TAB PO (16:39)
--- NOTE | 2021-10-25 17:17 | MHPN_ITS ---
Date of service: 10/25/21 Time of Service: 18:23 PHQ-9 Over the last 2 weeks, how often have you been bothered by any of the following problems? 1. Little interest or pleasure in doing things: not at all 2. Feeling down, depressed, or hopeless: nearly every day 3. Trouble falling or staying asleep, or sleeping too much: nearly every day 4. Feeling tired or having little energy: more than half the days 5. Poor appetite or overeating: not at all 6. Feeling bad about yourself - or that you are a failure or have let yourself and your family down: not at all 7. Trouble concentrating on things, such as reading the newspaper or watching television: several days 8. Moving or speaking so slowly that other people could have noticed? - Or the opposite - being so fidgety or restless that you have been moving around a lot more than usual: nearly every day 9. Thoughts that you would be better off or of hurting yourself in some way: not at all Total score: 12 If you checked off any problems, how difficult have these problems made it for you to do your work, take care of things at home, or get along with other people?: extremely difficult Source: Developed by Drs. Hari Kumar, Shana Waller, Dann Olivares and colleagues, with an educational hossein from [employer]. Mental Health Emergency Note Release [facility] release signed:: No Reason for Visit Client presented at [facility] ED on 10/19/2021 after a MH warrant was executed. Client is seen today for [address] [place] [address] daily screening while awaiting involuntary hospitalization. In the last 2 weeks has the pt presented for ES prior to today?: No Client Information Client is: New Well Housed: Yes Non Suicidal Self Injury Current: No History: No Safety Risk/Harm to Self or Others Current Ideation to Harm Self or Others: No Risk: Does risk to harm exist?: No Risk: N/A Duty to warn indicated: No Asssessment/Mental Status Appearance: Disheveled, Inappropriate and Other (Client still has ripped paper pants because they are not large enough for her body size. ) Attitude: Cooperative and Friendly Behavior: Agitated Speech: Normal Affect: Cogruent with mood Mood: Sad, Stressed, Happy, Anxious, Irritable and Other (Happy while doing some creative colorings on masks. Anxious and irritable around placement, stressed and sad about situation.) Thought process: Goal directed and Poverty of content Hallucinations: No Delusions: No Attention: Unremarkable Perception: Not impaired Orientation: Fully orientated Memory: Intact Insight: Good Judgement: Poor Neurovegetative Symptoms Sleep: No change (Client continues to struggle with sleep) Appetitie: No change Interests: No change Energy: No change Libido: Not applicable Substance Use: Do you use nicotine?: Yes Have you used substances in the last 7 days?: No Additional Issues: Assaultive/Threatening Behavior: No Medical Concerns: No Client engaged in active self harm w/weapon: No Threatening to run away: No Child reported abuse/neglect: No Voluntarily presenting for services: No Domestic violence is a concern: No Extreme Psychosis or extreme behavior is present: Yes Impression Client is still hoping she will be able to go home on 10.26.2021 as it is her birthday and she wants to be home with her family. She has made it clear that she will not go inpatient to a hospital that if she needs to stay for treatment she will continue to stay at [facility]. She was reminded that she is on an involuntary status and that she won't have a choice but that we have to make the calls. She acknowledge understanding of this although was not happy to be hearing this. Plan/Disposition Recommended Disposition: Hospitalization (none availble today ) facilities contacted. Plan: Client is still struggling with her sleep. The hope is that she is able to get some much needed sleep so that she might be appropriate to walk off her and safety plan home. She in the mean time still meets criteria as if she were to return home it is believed that she would continue to decompensate and end back up at the ED on another involuntary admission. This clinician had a huddle with [facility] regarding her being able to wear leggings while at there due to the paper ones not fitting properly. This was approved. This clinician also requested that she be able to be moved up stairs where she can be more mobile and have a window so that it may help with her being able to regulate her sleep better. Due to the other clients on the floor and their needs this may not be able to happen today. Client will remain at [facility] pending admission or the ability to appropriately safety plan back home. She will be assessed twice daily by [facility] until such time. Person reported agreement to plan: No Facilities contacted if Applicable [facility] Not accepted, No bed available [facility] Not accepted, No bed available [facility] Not accepted, No bed available, [facility] Not accepted, Acuity Reports/communication Outcome discussed with: ED/Personnel Final Disposition/Discharge Transportation Checklist completed and faxed: No
[2021-10-25] MEDS: OLANZapine 10 MG TAB 20 MG PO (20:21)
--- NOTE | 2021-10-25 20:22 | NUR.NOTE ---
Nursing Note:Pt refused Depakene, states she has explained this previously that she has taken it in the past and had bad side effects from it. Pt requests this medication by discontinued and will not take it, provider notified.
[2021-10-26] MEDS: Ibuprofen 600 MG TAB PO ×2 (00:43→07:36)
[2021-10-26] MEDS: clonazePAM 1 MG TAB 2 MG PO ×2 (00:43→08:18)
[2021-10-26] MEDS: Nicotine 4 MG LOZG SUC ×2 (00:44→07:00)
[2021-10-26] MEDS: Ibuprofen 800 MG TAB PO (05:21)
[2021-10-26] MEDS: buPROPion-XL 150 MG TABCR PO (08:17)
[2021-10-26] MEDS: Bacitracin 1 PACKET TP (08:17)
[2021-10-26] MEDS: Doxycycline Hyclate 100 MG CAP PO (08:18)
[2021-10-26] MEDS: OLANZapine 10 MG TAB 20 MG PO (08:18)
[2021-10-26] MEDS: ZIPRASIDONE 60 MG PO (08:18)
--- NOTE | 2021-10-26 13:05 | MHPN_ITS ---
Date of service: 10/26/21 Time of Service: 12:03 Mental Health Emergency Note Release [facility] release signed:: No Reason for Visit Client presented in ED 10/19 due to MH warrant In the last 2 weeks has the pt presented for ES prior to today?: Unknown Non Suicidal Self Injury Current: No Safety Risk/Harm to Self or Others Current Ideation to Harm Self or Others: No Risk: Does risk to harm exist?: No Risk: Low Risk Duty to warn indicated: No Asssessment/Mental Status Appearance: Unremarkable Attitude: Cooperative Behavior: Unremarkable Speech: Normal Affect: Normal Mood: Happy (Client reported today is her birthday) Thought process: Unremarkable Hallucinations: No Delusions: No Attention: Unremarkable Perception: Not impaired Orientation: Fully orientated Memory: Intact Insight: Good Judgement: Good Neurovegetative Symptoms Sleep: Increase (Client reports she slept 9 hrs last night) Appetitie: No change Interests: No change Energy: No change Libido: Not applicable Impression This data analyst report writer spoke with client via zoom at [facility] ED regarding safety plan that ES is working to put into place as part of client's discharge plan. This data analyst report writer informed client specifics the safety plan will consist of: complete check in calls twice a day with ES; once in the am around 10 am, once in the afternoon around 4pm, attend follow-up appointment with med provider Izabel Barcenas, that is scheduled for Monday 10/30 at 8:30 am, and/or client's mother is to administer client's medications to her, all medications/guns/sharps in the household are to be locked and not accessible to client, client is to make follow-up appointment with therapist meena. Client stated she agrees to the terms of the safety plan. Client was informed safety plan was reported to her mother Johanny and Arthur. Client was informed Alondra Ho would be coming into ED later today to see her in-person. Client was also informed paper version on plan would be provided to her. This data analyst report writer consulted with MD Garcia regarding ES putting safety plan in place for disposition of discharge.? Plan/Disposition Recommended Disposition: Community resources and Other (discharge upon saftey plan approval ). Plan: Discharge client once safety plan is reviewed/put into place upon the approval of safety plan from MD Garcia. Person reported agreement to plan: Yes Reports/communication Outcome discussed with: ED/Personnel (MD Garcia)
--- NOTE | 2021-10-26 13:15 | W.EDPROG ---
Date of service: 10/26/21 Time of Service: 13:15 Medical Decision Making He is found for the patient on the morning of October 26. She is improved and more appropriate with staff, taking medications voluntarily. After lunch on October 26 patient was reevaluated by mental health and a plan for outpatient care and safety was enacted. Will continue doxycycline for the patient's great toe which has a mild cellulitis. She is stable and improved at this time Sign Out Sign Out Data: Sign Out Comment: History of bipolar, was brought in by police and mental health for psychiatric evaluation. Patient in notable manic psychosis, did require B-52, 10 of Zyprexa, and [address] 5 [facility] police officers to become stable/safe. Patient has been medically cleared. EE paperwork has been filed. Pending second certification in the morning. Last updated by Sam Dow DO at 10/20/21 04:44 Sign Out Comment: EE, on abx for toe Last updated by Cisco Garcia MD at 10/23/21 22:37 Sign Out Comment: EE; no events overnight, awaiting placement; given trazadone in early AM Last updated by Con Giles MD at 10/24/21 07:54 Sign Out Comment: no issues during the day, change olanzapine to 20mg qhs from 5mg daily to hopefully help sleep Last updated by Jatin Phelan MD at 10/24/21 19:44 Sign Out Comment: Stable throughout the evening. Pending mental health reassessment. Last updated by Sam Dow DO at 10/25/21 07:15 Sign Out Comment: Awaits placement Last updated by Cisco Garcia MD at 10/25/21 14:45 Sign Out Comment: no issues during shift, no code jacobsen and awaiting placement Last updated by Jatin Phelan MD at 10/25/21 20:44 Sign Out Comment: Stable throughout the night. No code hardeep. Awaiting placement Last updated by Sam Dow DO at 10/26/21 06:57 Sign Out Comment: Patient here for acute psychosis and liban. Patient is currently in physical restraints that we will need to be reassessed at 1642. She recently received Versed 4 mg IM as well as droperidol 5 mg IM. Plan will be for second certification to occur at around 5 PM. Last updated by Ky Hinton MD at 10/20/21 14:47 Sign Out Comment: out of physical restraints, back on home meds; reassessment in AM Last updated by Con Giles MD at 10/20/21 23:04 Sign Out Comment: Patient stable throughout the night. No interventions needed. Still here involuntarily. Last updated by Sam Dow DO at 10/21/21 09:01 Sign Out Comment: Out of physical restraints, second cert performed, EE awaiting placement Last updated by Cisco Garcia MD at 10/21/21 19:06 Sign Out Comment: EE, awaiting placement, no interventions needed throughout the evening. Last updated by Sam Dow DO at 10/22/21 07:42 Sign Out Comment: Patient eloped,became agreesive with staff and given chemical and physical restraint approx 1800 Last updated by Cisco Garcia MD at 10/22/21 19:51 Sign Out Comment: Stable throughout the evening. Does have a small burn on the great toe of the left foot. Band-Aid was applied. Patient refused tetanus shot. Doxycycline was started. Last updated by Sam Dow DO at 10/23/21 07:19 Sign Out Comment: EE started on doxy for left foot wound infection Last updated by Jatin Phelan MD at 10/23/21 08:18 Discharge Plan Disposition Patient Disposition: HOME Condition: Serious Discharge Details Clinical Impression: Manic episode, Agitation, Cellulitis of great toe, left Primary Care Provider: Chelsi Orr ED Provider: Cisco Garcia Home Meds and New Rx's Prescriptions: New doxycycline monohydrate 100 mg capsule 100 mg PO BID 7 Days Qty: 14 0RF Continued metformin 500 mg tablet 500 mg PO DAILY albuterol sulfate [ProAir HFA] 90 mcg/actuation HFA aerosol inhaler 2 puff Inhalation Q4H PRN Qty: 1 1RF clonazepam 0.5 MG tablet 0.5 mg PO TID Label Comments: 01-09-17 pt reports that she is instructed to take one tab BID PRN. hb bupropion HCl [Wellbutrin SR] 100 MG tablet extended release 12 hr 150 mg PO DAILY ziprasidone HCl [Geodon] 60 MG capsule 60 mg PO BID Label Comments: 02/05/17 taking 80 mg at hs and 60 mg in the am. antonio 01-09-17 pt reports taking 100 HS and 60 AC. hb olanzapine 5 mg tablet 1 tab PO DAILY Label Comments: TAKE ONE TABLET BY MOUTH EVERY DAY Discharge Instructions Instructions: Cellulitis (ED) Additional Instructions: Daily dressing changes with large Band-Aid to your toe. Take antibiotics as prescribed for 1 week. Continue your regularly prescribed medications.
--- NOTE | 2021-10-26 13:46 | CMPROGNOTE_ITS ---
- If Service Date Differs Date of service: 10/26/21 Time of Service: 13:46 Care Management Progress Note Sirena is assessed by Alondra [facility] Crisis Screener, today. The decision is subsequently made to walk Sirena off of the EE and to discharge her home on a safety plan. Sirena will follow up with [facility] Emergency Services and with her med provider, Carolyn Gallego aprn, as agreed. She is transported home via private vehicle by family. The following is the safety plan created by [facility] and Sirena: Pro-Active Patient Safety Plan People involved in development of Safety Plan: Alondra Pack [employer] Aleena ([facility]) Support people who will be made aware of this plan (Therapist, PCP, Addiction Straightedge Man): Ross Lift Operator: [facility] aviation manager Name: Mavis Family/Significant Others Plan was shared with: Client?s Arthur and Mother Johanny (support persons) Step 1: Warning signs (thoughts, images, mood, situation, behavior) that a crisis may be developin. Poor impulse control 2. Not being able to sleep 3. Feeling triggered or emotional Step 2: Internal coping strategies Things I can do to take my mind off my problems without contacting another person (relaxation technique, physical activity): 1. Journaling 2. Walking away from the person or asking the person to walk away who is making her feel triggered 4. Talking to friends Step 3: People and social settings that provide distraction: 1. Name: Johanny (Mother) 2. Name: Arthur () 3. Name: 1. Name: Johanny (Mother) 2. Name: Arthur () 3. Name: Izabel Brannon ex.325 1. Clinician Name: [facility] Emergency Services Clinician Pager or Emergency Contact #: [phone] Local Urgent Care Services: [facility] Address: [place] [address] Urgent Care Services 4. [place] Crisis text [place]- text [place] to [id number] Step 6: Making the environment safe: 1. Lock up all Medications/guns/sharps within the home 2. Mother and/or are to administer client?s medications The one thing that is most important to me and worth living for is: My family Other follow-up ? Client will check-in with [facility] ES twice daily @ 10:00A and 4:00 P through 10/30/21 ? Attend follow-up appointment with med provider Izabel Brannon, that is scheduled for Monday 10/30 at 8:30 am, ? If symptoms worsen or client or support person does not feel safe client should call [facility] ES for support.
--- NOTE | 2021-10-26 13:46 | PDOC.ERCMPRO ---
- If Service Date Differs Date of service: 10/26/21 Time of Service: 13:46 Care Management Progress Note Sirena is assessed by Alondra [facility] Crisis Screener, today. The decision is subsequently made to walk Sirena off of the EE and to discharge her home on a safety plan. Sirena will follow up with [facility] Emergency Services and with her med provider, Carolyn Gallego aprn, as agreed. She is transported home via private vehicle by family. The following is the safety plan created by [facility] and Sirena: Pro-Active Patient Safety Plan People involved in development of Safety Plan: Alondra Pack & Aleena ([facility]) Support people who will be made aware of this plan (Therapist, PCP, Addiction Pediatric Speech Therapist): Tool Hardener: [facility] manager entry Name: Mavis Family/Significant Others Plan was shared with: Client?s Arthur and Mother Johanny (support persons) Step 1: Warning signs (thoughts, images, mood, situation, behavior) that a crisis may be developin. Poor impulse control 2. Not being able to sleep 3. Feeling triggered or emotional Step 2: Internal coping strategies Things I can do to take my mind off my problems without contacting another person (relaxation technique, physical activity): 1. Journaling 2. Walking away from the person or asking the person to walk away who is making her feel triggered 4. Talking to friends Step 3: People and social settings that provide distraction: 1. Name: Johanny (Mother) 2. Name: Arthur () 3. Name: 1. Name: Johanny (Mother) 2. Name: Arthur () 3. Name: Izabel Brannon ex.325 1. Clinician Name: [facility] Emergency Services Clinician Pager or Emergency Contact #: [phone] Local Urgent Care Services: [facility] Urgent Care Services Address: [place] [address] Urgent Care Services 4. [place] Crisis text line- text [place] to [id number] Step 6: Making the environment safe: 1. Lock up all Medications/guns/sharps within the home 2. Mother and/or are to administer client?s medications The one thing that is most important to me and worth living for is: My family Other follow-up ? Client will check-in with [facility] ES twice daily @ 10:00A and 4:00 P through 10/30/21 ? Attend follow-up appointment with med provider Izabel Brannon, that is scheduled for Monday 10/30 at 8:30 am, ? If symptoms worsen or client or support person does not feel safe client should call [facility] ES for support.
--- NOTE | 2021-10-26 19:04 | ED.PROG_ITS ---
Date of service: 10/26/21 Time of Service: 19:04 Medical Decision Making Patient has been discharged without nightly trazodone dose. I discussed with [facility] human services. A prescription was called in for total of 4 tablets to [facility] in [place]. Sign Out Sign Out Data: Sign Out Comment: History of bipolar, was brought in by police and mental health for psychiatric evaluation. Patient in notable manic psychosis, did require B- 52, 10 of Zyprexa, and 10 of Valium and 5 [facility] police officers to become stable/safe. Patient has been medically cleared. EE paperwork has been filed. Pending second certification in the morning. Last updated by Sam Dow DO at 10/20/21 04:44 Sign Out Comment: EE, on abx for toe Last updated by Cisco Garcia MD at 10/23/21 22:37 Sign Out Comment: EE; no events overnight, awaiting placement; given trazadone in early AM Last updated by Con Giles MD at 10/24/21 07:54 Sign Out Comment: no issues during the day, change olanzapine to 20mg qhs from 5mg daily to hopefully help sleep Last updated by Jatin Phelan MD at 10/24/21 19:44 Sign Out Comment: Stable throughout the evening. Pending mental health reassessment. Last updated by Sam Dow DO at 10/25/21 07:15 Sign Out Comment: Awaits placement Last updated by Cisco Garcia MD at 10/25/21 14:45 Sign Out Comment: no issues during shift, no code jacobsen and awaiting placement Last updated by Jatin Phelan MD at 10/25/21 20:44 Sign Out Comment: Stable throughout the night. No code hardeep. Awaiting placement Last updated by Sam Dow DO at 10/26/21 06:57 Sign Out Comment: Patient here for acute psychosis and liban. Patient is currently in physical restraints that we will need to be reassessed at 1642. She recently received Versed 4 mg IM as well as droperidol 5 mg IM. Plan will be for second certification to occur at around 5 PM. Last updated by Ky Hinton MD at 10/20/21 14:47 Sign Out Comment: out of physical restraints, back on home meds; reassessment in AM Last updated by Con Giles MD at 10/20/21 23:04 Sign Out Comment: Patient stable throughout the night. No interventions needed. Still here involuntarily. Last updated by Sam Dow DO at 10/21/21 09:01 Sign Out Comment: Out of physical restraints, second cert performed, EE awaiting placement Last updated by Cisco Garcia MD at 10/21/21 19:06 Sign Out Comment: EE, awaiting placement, no interventions needed throughout the evening. Last updated by Sam Dow DO at 10/22/21 07:42 Sign Out Comment: Patient eloped,became agreesive with staff and given chemical and physical restraint approx 1800 Last updated by Cisco Garcia MD at 10/22/21 19:51 Sign Out Comment: Stable throughout the evening. Does have a small burn on the great toe of the left foot. Band-Aid was applied. Patient refused tetanus shot. Doxycycline was started. Last updated by Sam Dow DO at 10/23/21 07:19 Sign Out Comment: EE started on doxy for left foot wound infection Last updated by Jatin Phelan MD at 10/23/21 08:18 Discharge Plan Disposition Patient Disposition: HOME Condition: Serious Discharge Details Clinical Impression: Manic episode, Agitation, Cellulitis of great toe, left Primary Care Provider: Chelsi Orr ED Provider: Cisco Garcia Home Meds and New Rx's Prescriptions: New doxycycline monohydrate 100 mg capsule 100 mg PO BID 7 Days Qty: 14 0RF Continued metformin 500 mg tablet 500 mg PO DAILY albuterol sulfate [ProAir HFA] 90 mcg/actuation HFA aerosol inhaler 2 puff Inhalation Q4H PRN Qty: 1 1RF clonazepam 0.5 MG tablet 0.5 mg PO TID Label Comments: 01-09-17 pt reports that she is instructed to take one tab BID PRN. hb bupropion HCl [Wellbutrin SR] 100 MG tablet extended release 12 hr 150 mg PO DAILY ziprasidone HCl [Geodon] 60 MG capsule 60 mg PO BID Label Comments: 02/05/17 taking 80 mg at hs and 60 mg in the am. antonio 11-1-17 pt reports taking 100 HS and 60 AC. hb olanzapine 5 mg tablet 1 tab PO DAILY Label Comments: TAKE ONE TABLET BY MOUTH EVERY DAY Discharge Instructions Instructions: Cellulitis (ED) Additional Instructions: Daily dressing changes with large Band-Aid to your toe. Take antibiotics as prescribed for 1 week. Continue your regularly prescribed medications. Discharge Data Discharge Date/Time-TO BE ENTERED AT DEPARTURE: 10/26/21 14:50
== END 2021-10-26 14:50 | disposition home or self-care (01) ==
PROVIDERS: Student in an Organized Health Care Education/Training Program; Emergency Provider Emergency Medicine; PCP Nurse Practitioner
DX: F30.9 Manic episode, unspecified (principal); L03.032 Cellulitis of left toe; E11.9 Type 2 diabetes mellitus without complications; F17.210 Nicotine dependence, cigarettes, uncomplicated; Z23 Encounter for immunization; Z20.822 Contact with and (suspected) exposure to COVID-19; Z32.02 Encounter for pregnancy test, result negative; Z79.84 Long term (current) use of oral hypoglycemic drugs; Z79.899 Other long term (current) drug therapy
CPT/HCPCS: 36415; 80053; 80307; 81025; 87635; 90471; 93005; 96372; 96374; 96375; 99285; 73630; 80320; 80329; 81003; 81015; 84439; 84443; 85025; 93010; J1200; J1630; J1790; J2250; J3360; J3490

== ENCOUNTER 2021-10-30 11:02 | Outpatient (CLI) | payer MEDICARE, MEDICAID, SELFPAY ==
--- NOTE | 2021-10-30 11:00 | RT.EKG_ITS ---
APPROVED REPORT Exam: Resting ECG Reason for Exam: Requested by psychiatrist for tachycardia at her o Patient Location: O HR:93 bpm ECG Measurements Heart Rate 93 AXIS SD 149 P 67 QRSd 82 QRS 45 QT 363 T 32 QTc 452 Conclusion Sinus rhythm...normal P axis, V-rate 50- 99 Normal Electrocardiogram
== END 2021-10-30 11:03 | disposition home or self-care (01) ==
LOC: DI.CM 11:03
PROVIDERS: PCP Nurse Practitioner; Visit Provider Nurse Practitioner Family
DX: I47.9 Paroxysmal tachycardia, unspecified (principal)
CPT/HCPCS: 93010

== ENCOUNTER 2021-10-30 11:17 | Outpatient (CLI) | payer MEDICARE, MEDICAID, SELFPAY ==
[2021-10-30 12:57] LABS: Absolute Basophil Count 0.07 10^3/uL (0.0-0.2); Absolute Eosinophil Count 0.47 10^3/uL (0.0-0.7); Absolute Lymphocyte Count 2.75 10^3/uL (1.2-3.4); Absolute Monocyte Count 0.59 10^3/uL (0.1-0.8); Absolute Neutrophil Count 6.31 10^3/uL (1.2-6.7); Basophils % 0.7; Eosinophils % 4.6; HCT 37.1 % (36.0-46.0); HGB 11.8 g/dL (11.2-15.7); Lymphocytes % 26.7; MCH 28.9 pg (27.0-33.0); MCHC 31.8 % (32.0-36.0); MCV 91 fL (80-95); MPV 9.7 fL (8.0-11.0); Monocytes % 5.7; Neutrophils % 61.3; Platelet Count 316 10^3/uL (130-400); RBC 4.08 10^6/uL (3.93-5.22); RDW 13.6 % (11.7-14.6); RDW-SD 45.2 fL; WBC 10.29 10^3/uL (4.4-10.8)
[2021-10-30 13:27] LABS: ALT 81 U/L (14-59); AST 35 U/L (15-37); Albumin 3.1 g/dL (3.4-5.0); Alkaline Phosphatase 80 U/L (46-116); Anion Gap 7.8 mmol/L (3-11); BUN 17 mg/dL (7-18); Bilirubin, Total 0.2 mg/dL (0.2-1.0); CO2 32.2 mmol/L (21.0-32.0); Calcium 9.1 mg/dL (8.5-10.1); Chloride 101 mmol/L (98-107); Glucose 119 mg/dL (74-106); NT-proBNP 250 pg/mL (<300); Potassium 4.2 mmol/L (3.5-5.1); Sodium 141 mmol/L (136-145); TSH (W/Ref FT4) 4.99 uIU/mL (0.36-3.74); Total Protein 6.4 g/dL (6.4-8.2)
[2021-10-30 13:43] LABS: FREE T4 0.95 ng/dL (0.76-1.46)
== END 2021-10-30 11:18 | disposition home or self-care (01) ==
LOC: LOS 11:18
PROVIDERS: Nurse Practitioner Family; PCP Nurse Practitioner; Visit Provider Nurse Practitioner Family
DX: R63.5 Abnormal weight gain (principal); I47.9 Paroxysmal tachycardia, unspecified
CPT/HCPCS: 36415; 80053; 83880; 84439; 84443; 85025

== ENCOUNTER 2021-10-30 14:45 | Outpatient (REF) | payer MEDICARE, MEDICAID, SELFPAY ==
[2021-10-30 20:23] LABS: Bilirubin Negative (Negative); Blood Large (Negative); Clarity Sl Cloudy (Clear); Glucose Negative (Negative); Ketones Negative (Negative); Leukocyte Esterase Moderate (Negative); Nitrite Negative (Negative); Specific Gravity 1.015 (1.005-1.025); Urobilinogen 0.2 EU/dL (Up TO 0.2)
[2021-10-30 20:41] LABS: Bacteria Few HPF (Negative); C & S Indicated? No/Sq. Contamination; Casts Negative LPF (Negative); Crystals Negative HPF (Negative); Epithelial Cells Many HPF (Negative); Mucus Negative (Negative); RBC >50 HPF (0-2)
== END 2021-10-30 14:46 | disposition home or self-care (01) ==
LOC: NCHCN 14:45
PROVIDERS: PCP Nurse Practitioner; Visit Provider Nurse Practitioner Family
DX: R63.5 Abnormal weight gain (principal)
CPT/HCPCS: 81003; 81015

== ENCOUNTER → 2021-12-28 02:43 | Outpatient (CLI) | payer MEDICARE, MEDICAID, SELFPAY ==
--- NOTE | 2021-12-28 08:00 | DI.US_ITS ---
Exam(s) US ABDOMEN LIMITED EXAM: US ABDOMEN LIMITED CLINICAL HISTORY: ABNL FINDINGS OF BLOOD CHEMISTRY, R79.89; OBESITY, E66.9; BIPOLAR DISORDER TECHNIQUE: Ultrasound examination of the right upper quadrant was performed according to the usual p rotocol. COMPARISON: CT CT ABDOMEN PELVIS WO from 09/01/2021 FINDINGS: The liver is normal in size and shape. Hepatic parenchyma shows normal echotexture. No focal lesion identified. Portal venous flow is hepatopetal. There are multiple gallstones. Gallbladder wall thickness is within normal limits. No pericholecyst ic fluid collection. Negative sonographic Cleary sign period. The common hepatic duct appears to be mildly dilated at 11 millimeters, the duct is poorly seen dista lly, common duct obstruction not excluded.. Unremarkable appearance of the pancreas. Right kidney appears normal with no hydronephrosis or nephrolithiasis. Abdominal aorta and IVC are of normal diameter. IMPRESSION: mild nonspecific dilatation of common hepatic duct is noted, additional evaluation with MRCP is harmony ortiz. RADIATION DOSE DELIVERED: Total DLP
== END ==
PROVIDERS: PCP Nurse Practitioner; Visit Provider Nurse Practitioner Family
DX: R79.89 Other specified abnormal findings of blood chemistry (principal); E66.9 Obesity, unspecified
CPT/HCPCS: 76705

== ENCOUNTER 2022-08-10 01:17 | Outpatient (CLI) | payer MEDICARE, MEDICAID, SELFPAY ==
[2022-08-10 12:50] LABS: HCT 44.2 % (36.0-46.0); HGB 14.2 g/dL (11.2-15.7); MCH 28.7 pg (27.0-33.0); MCHC 32.1 % (32.0-36.0); MCV 90 fL (80-95); MPV 10.4 fL (8.0-11.0); Platelet Count 350 10^3/uL (130-400); RBC 4.94 10^6/uL (3.93-5.22); RDW 14.5 % (11.7-14.6); RDW-SD 46.8 fL; WBC 11.13 10^3/uL (4.4-10.8)
[2022-08-10 13:14] LABS: ALT 38 U/L (14-59); AST 15 U/L (15-37); Albumin 3.5 g/dL (3.4-5.0); Alkaline Phosphatase 91 U/L (46-116); Anion Gap 9.7 mmol/L (3-11); BUN 17 mg/dL (7-18); Bilirubin, Total 0.3 mg/dL (0.2-1.0); CO2 24.3 mmol/L (21.0-32.0); CREATININE 1.1 mg/dL (0.55-1.02); Calcium 9.4 mg/dL (8.5-10.1); Calculated LDL 93 mg/dL (<100); Chloride 104 mmol/L (98-107); Cholesterol 160 mg/dL (<200); Estimated GFR 64.34 (mL/min/1.73m2); Glucose 123 mg/dL (74-106); HDL Cholesterol 45 mg/dL (40-60); Potassium 4.1 mmol/L (3.5-5.1); Sodium 138 mmol/L (136-145); TSH (W/Ref FT4) 3.69 uIU/mL (0.36-3.74); Total Protein 7.1 g/dL (6.4-8.2); Triglyceride 112 mg/dL (<150)
[2022-08-10 13:52] LABS: Hemoglobin A1C 7.1 % (<5.7)
== END 2022-08-10 01:18 | disposition home or self-care (01) ==
LOC: LOS 01:20
PROVIDERS: Nurse Practitioner Family; PCP Nurse Practitioner Family; Visit Provider Nurse Practitioner Family
DX: E66.9 Obesity, unspecified (principal); K21.9 Gastro-esophageal reflux disease without esophagitis; L90.0 Lichen sclerosus et atrophicus; M79.605 Pain in left leg; R73.03 Prediabetes; F41.9 Anxiety disorder, unspecified
CPT/HCPCS: 36415; 80053; 80061; 85027; 83036; 84443

== ENCOUNTER → 2022-09-07 10:00 | Outpatient (BNVA) | payer MEDICARE, MEDICAID, SELFPAY | PROVIDERS: PCP Nurse Practitioner Family; Referring Provider Nurse Practitioner Family; Visit Provider Surgery | DX: L02.211 Cutaneous abscess of abdominal wall (principal) | CPT/HCPCS: 99202; 99214 ==

== ENCOUNTER 2022-10-22 04:03 | Outpatient (CLI) | payer MEDICARE, MEDICAID, SELFPAY ==
--- NOTE | 2022-10-25 07:09 | W.NOCTURNAL ---
Date of service: 10/22/22 Time of Service: 22:17 Nocturnal Oximetry Note: Overnight Oximetry Amount of time analyzed: 9 hours, 23 minutes on BiPAP Number of minutes under 88%: 18.2 min JONES: 3.5 Appearance of oxygen saturation pattern:Some gradual decreases in SpO2 curve indicative of possible cardiopulmonary disease. Recommendation: start 2LPM bleed through BiPAP and consider re-testing Homa Ibarra MD Pulmonary & Critical Care Medicine
== END 2022-10-22 04:04 | disposition home or self-care (01) ==
LOC: RT 04:03
PROVIDERS: PCP Nurse Practitioner Family; Visit Provider Nurse Practitioner
DX: G47.33 Obstructive sleep apnea (adult) (pediatric) (principal)
CPT/HCPCS: 94762

== ENCOUNTER 2022-11-24 17:50 | Emergency (ER) | payer MEDICARE, SELFPAY ==
[2022-11-24 17:52] VITALS: BP 153/88; PULSE 107; RESP 18; TEMP 36.7; O2SAT 97
--- NOTE | 2022-11-24 18:00 | DI.CT_ITS ---
Exam(s) CT ABDOMEN PELVIS W EXAM: CT ABDOMEN PELVIS W CLINICAL HISTORY: left flank and abdomen pain. TECHNIQUE: Imaging Protocol: Axial computed tomography images with coronal and sagittal reformatted images were created and reviewed CONTRAST MATERIAL: Intravenous: Omnipaque 350 Contrast volume:100 ml Oral: no COMPARISON: CT CT ABDOMEN PELVIS WO from 09/01/2021 FINDINGS: ABDOMEN: Lung Bases: Normal where visualized. Liver: Mildly enlarged. [id number] hepatic steatosis. No measurable mass. Gallbladder and biliary tract: gallstones. No gallbladder wall thickening or normal distension. Pancreas: Normal density, no abnormal calcifications or inflammatory process. Spleen: Normal. Kidneys: Normal size, contour and axis. No radiodense stones or obstructive uropathy. No suspicious m asses seen. Adrenal glands: Cysts in stable low-density right adrenal nodule consistent with adenoma. No follow- up recommended. Vasculature: Abdominal aorta non-dilated. Soft tissues: Diastasis of the rectus muscles above the level of the umbilicus with stable appearance of fatty hernia measuring prior approximately 5 cm in diameter. PELVIS: Bladder: No gross wall thickening. No calculi.No focal mass. Bowel: No obstruction. No bowel wall thickening. Appendix normal. Normal quantity of stool. Peritoneal cavity: No ascites, collection or mesenteric inflammatory response. Bones: Unremarkable for age. Reproductive organs: Within normal limits. IUD located in the lower uterine segment. The right-dong e arm appears to lie in the myometrium. This is unchanged in position from prior.. Lymph nodes: Unremarkable. IMPRESSION:: IUD positioned low in the lower uterine segment with right-sided arm in the myometrium. This is unchanged from prior. Stable appearance of fatty containing abdominal wall hernia above the level of the umbilicus. Cholelithiasis. No evidence of acute cholecystitis or biliary dilatation. RADIATION DOSE DELIVERED: 1,681.1mGy.cm Total DLP DATA REPOSITORY: All CT scans at this facility are submitted to the National Radiology Data Registry (NRDR) Dose Index Registry (DIR) with the [employer] (A[employer]). RADIATION OPTIMIZATION: All CT scans at this facility use at least one of these dose optimization te chniques: automated exposure control; mA and/or kV adjustment per patient size (includes targeted exa ms where dose is matched to clinical indication); or iterative reconstruction.
--- NOTE | 2022-11-24 18:08 | ED.GENADUL_ITS ---
Discharge Plan Discharge Details Chief Complaint: GenMedical Clinical Impression: Left flank pain, Left sided abdominal pain Primary Care Provider: Britt Cole ED Provider: Jatin Phelan Home Meds and New Rx's Prescriptions: No Action topiramate [Topamax] 100 mg tablet 100 mg PO BID albuterol sulfate [ProAir HFA] 90 mcg/actuation HFA aerosol inhaler 2 puff Inhalation Q4H PRN Qty: 1 1RF clobetasol 0.05 % ointment 1 applic topical BID Qty: 60 6RF Rx Instructions: Apply to clitoris, labia and in the creases, around the vaginal opening, the perineum (area between the vagina and anus), around the anus clonazepam 0.5 MG tablet 0.5 mg PO TID Patient Comments: 01-09-17 pt reports that she is instructed to take one tab BID PRN. hb bupropion HCl [Wellbutrin SR] 100 MG tablet extended release 12 hr 150 mg PO DAILY ziprasidone HCl [Geodon] 60 MG capsule 60 mg PO BID Patient Comments: 02/05/17 taking 80 mg at hs and 60 mg in the am. [facility] 01-09-17 pt reports taking 100 HS and 60 AC. hb Ozempic 1 mg/dose (4 mg/3 mL) pen injector 1 mg subcut QWEEK Qty: 3 1RF Medical Decision Making 42 yo female with hx of dm, gerd, who has had several days of nausea, feeling generally weak and also left flank and abdomen pain. Denies fevers, vomiting, ch est pain dyspnea. She has had a cyst in her left lower abdomen skin under her pannus, on review of charts has had an abscess that has not required drainage. She does have 2x3 cm area of mild erythema of the left lower abdomen under her panus, no signficant flucutance on exam, no creptius or significant warmth. She is tender as well in the llq and notes pain in the left lower back. She appears well in no distress speaking clearly. Unclear if this is actually an abscess under her pannus, given her nausea and flank pain as well will proceed with cbc, cmp, ua and ct abd/pelvis to evaluate for kidney stone, pyelo, diverticulitis and determine if this area of her skin is truly an abscess. pt signed out to [facility] provider pending ct results and reassessment. Differential Diagnosis Differential Diagnosis: kidney stone, diverticulitis, cellulitis, abscess Medical Records Medical records reviewed: Yes I reviewed the patient's medical records. Lab Data Lab results reviewed: Yes I reviewed the patient's lab results. HPI General Mode of arrival: ambulatory . Date/Time Provider Initiated Documentation: 11/24/22 17:52 . Limitations to Documentation: no limitations . Information obtained by: patient . History of Present Illness 42 year old F presents to the emergency department with the chief complaint of nausea, described as moderate, and is localized to the abdomen. Patient reports no radiation. Patient started experiencing this day(s) (2) and it has been constant. No relieving factors improve symptom(s), No exacerbating factors reported . Patient notes no other symptoms.. Patient did receive the foll owing treatments prior to arrival, none Related Data Home Medications Medication Instructions Recorded Confirmed bupropion HCl 100 mg tablet,12 hr 150 mg PO DAILY 06/28/15 11/24/22 sustained-release (Wellbutrin SR) clonazepam 0.5 mg tablet 0.5 mg PO TID 06/28/15 11/24/22 ziprasidone HCl 60 mg capsule 60 mg PO BID 06/28/15 11/24/22 (Geodon) albuterol sulfate 90 mcg/actuation 2 puff inhalation Q4H PRN ##1 02/07/21 11/24/22 aerosol inhaler (ProAir HFA) topiramate 100 mg tablet (Topamax) 100 mg PO BID 07/23/22 11/24/22 clobetasol 0.05 % topical ointment 1 applic topical BID #60 grams 08/02/22 11/24/22 semaglutide 1 mg/dose (4 mg/3 mL) 1 mg (0.75 mL) subcut QWEEK #3 mL 10/10/22 11/24/22 subcutaneous pen injector (Ozempic) Previous Rx's Medication Instructions Recorded albuterol sulfate 90 mcg/actuation 2 puff inhalation Q4H PRN ##1 02/07/21 aerosol inhaler (ProAir HFA) clobetasol 0.05 % topical ointment 1 applic topical BID #60 grams 08/02/22 semaglutide 1 mg/dose (4 mg/3 mL) 1 mg (0.75 mL) subcut QWEEK #3 mL 10/10/22 subcutaneous pen injector (Ozempic) Allergies Allergy/AdvReac Type Severity Reaction Status Date / Time penicillin V Allergy Unknown Skin Rash Unverified 11/24/22 17:56 General Stated Complaint: GenMedical CLIVE: 3 Review of Systems All systems reviewed & are unremarkable except as noted in HPI and below Constitutional Constitutional: Denies chills and Denies fever(s) Cardiovascular Cardiovascular: Denies chest pain and Denies dyspnea Respiratory Respiratory: Denies cough and Denies dyspnea Gastrointestinal Gastrointestinal: Reports abdominal pain, Reports nausea and Denies vomiting Genitourinary Genitourinary: Denies dysuria Musculoskeletal Musculoskeletal: Denies joint swelling Integumentary/Breasts Skin/Breast: Denies rash PFSH All Active Problems (Updated 11/24/22 @ 19:37 by Jatin Phelan MD) Left flank pain (Acute) Left sided abdominal pain (Acute) Diabetes mellitus (Chronic) Morbid obesity (Acute) GERD (gastroesophageal reflux disease) (Chronic) IUD surveillance (Acute) Abscess (Acute) Lichen sclerosus (Acute) Medical History Anxiety Asthma Bipolar disorder History of COVID-19 (~01/2021) 01/2021 Family History Mother Personal history of malignant neoplasm Breast Cancer Social History Smoking/Tobacco Use Status: Current every day Tobacco Type: cigarettes Years smoked: 15 Smoking risk assessment performed?: Yes Alcohol Intake: never Drug use: Never Substance use type: does not use Details: Pt unable to answer these questions Housing: house Do you feel safe at home: Yes Do you feel safe in your relationship?: Yes History History 2 Para 1 Hx # Term Pregnancies Multiple births Hx # Pregnancies Ectopic pregnancies AB induced Hx Number of Living Children AB spontaneous Exam Const General: no acute distress Orientation: alert HENMT Head: normal to inspection Ears: external ears normal General nose exam: external nose normal Mouth: moist mucous membranes Eyes General: appearance normal, both eyes and all related structures Neck Neck: normal visual inspection Resp Effort & Inspection: normal respiratory effort and able to speak in complete sentences Cardio Rate: regular rate GI Inspection: normal to inspection Palpation: soft and tender Back/Spine/Pelvis Back: no CVA tenderness Skin General skin exam: no rashes or lesions noted Neuro General: patient alert and patient oriented x3 Psych Mental Status: mental status grossly normal Course Vital Signs Vital signs: Vital Signs Temperature 36.7 C 11/24/22 17:52 Pulse 107 H 11/24/22 17:52 Respiratory Rate 18 11/24/22 17:52 Blood Pressure 153/88 H 11/24/22 17:52 Pulse Oximetry 97 11/24/22 17:52 Temperature 36.7 C 11/24/22 17:52 Temperature Source Temporal Artery Scan 11/24/22 17:52 Pulse 107 H 11/24/22 17:52 Respiratory Rate 18 11/24/22 17:52 Respiratory Effort Normal 11/24/22 17:56 Blood Pressure 153/88 H 11/24/22 17:52 Blood Pressure Position Sitting 11/24/22 17:52 Pulse Oximetry 97 11/24/22 17:52 Oxygen Delivery Method Room Air 11/24/22 17:52 Oxygen Flow Rate 0 11/24/22 17:52 Pain Level 4 11/24/22 17:52 Lab/Test Results Lab/Test Results: POC Urine Test Start: 11/24/22 18:05 Freq: Status: Complete Protocol: Document 11/24/22 18:06 LESVIA (Rec: 11/24/22 18:06 [id number]) Test(Urine)-POC POC- Test(urine) Negative POC- Test(urine) Negative
[2022-11-24 18:20] LABS: Bilirubin Negative (Negative); Blood Negative (Negative); Clarity Clear (Clear); Glucose Negative (Negative); Ketones Negative (Negative); Leukocyte Esterase Negative (Negative); Nitrite Negative (Negative); Urobilinogen 0.2 mg/dL (Up to 0.2); pH 6.5 (5-8)
[2022-11-24] MEDS: Normal Saline 1,000 ML 1000 ML IV (18:25)
[2022-11-24] MEDS: Ondansetron 4 MG/2 ML VIAL IVP (18:26)
[2022-11-24 18:33] LABS: BE (Venous) -2 mmol/L (-2-3); HCO3 (Venous) 24 mmol/L (23-28); O2 Sat (Venous) 73 %; TCO2 (Venous) 21 mmol/L (24-29); pCO2 (Venous) 43 mmHg (41-51); pH (Venous) 7.36 (7.31-7.41); pO2 (Venous) 39 mmHg
[2022-11-24 18:34] LABS: Abs Immature Grans 0.11 10^3/uL (0.0-0.06); Basophils % 0.7; Eosinophils % 2.7; HGB 15.1 g/dL (11.2-15.7); Immature Grans % 0.7; Lymphocytes % 21.8; MCH 28.5 pg (27.0-33.0); MCHC 32.8 % (32.0-36.0); MCV 87 fL (80-95); MPV 9.8 fL (8.0-11.0); Neutrophils % 69.1; Platelet Count 372 10^3/uL (130-400); RDW 14.6 % (11.7-14.6)
[2022-11-24 18:34] LABS: Source Nasal/Nares
[2022-11-24 18:42] LABS: Absolute Basophil Count 0.12 10^3/uL (0.0-0.2); Absolute Eosinophil Count 0.45 10^3/uL (0.0-0.7); Absolute Monocyte Count 0.83 10^3/uL (0.1-0.8)
[2022-11-24 18:52] LABS: ALT 44 U/L (14-59); AST 13 U/L (15-37); Albumin 3.5 g/dL (3.4-5.0); Alkaline Phosphatase 115 U/L (46-116); BUN 12 mg/dL (7-18); Bilirubin, Total 0.3 mg/dL (0.2-1.0); CREATININE 1.2 mg/dL (0.55-1.02); Calcium 9.4 mg/dL (8.5-10.1); Chloride 102 mmol/L (98-107); Glucose 120 mg/dL (74-106); Lipase 70 U/L (16-77); Potassium 3.5 mmol/L (3.5-5.1); Sodium 139 mmol/L (136-145); Total Protein 7.4 g/dL (6.4-8.2)
[2022-11-24 19:05] LABS: COVID-19 PCR Negative (Negative)
[2022-11-24] MEDS: Normal Saline - Diluent 50 ML VIAL IJ (19:32)
[2022-11-24] MEDS: Omnipaque 350 MG/ML 100 ML BTL IJ (19:32)
[2022-11-24] MEDS: Normal Saline Flush 10 ML SYR IVP (19:32)
[2022-11-24 19:55] VITALS: BP 123/56; PULSE 89; RESP 19; O2SAT 99
[2022-11-24] MEDS: Mylanta Suspension 30 ML CUP PO (19:55)
--- NOTE | 2022-11-24 20:08 | DI.VRAD_ITS ---
PROCEDURE INFORMATION: Exam: CT Abdomen And Pelvis With Contrast Exam date and time: 11/24/2022 7:40 PM Age: 42 years old Clinical indication: Other: Lt flank and abdominal pain TECHNIQUE: Imaging protocol: Computed tomography of the abdomen and pelvis with contrast. Contrast material: OMNIPAQUE 350; Contrast volume: 100 ml; Contrast route: INTRAVENOUS (IV); COMPARISON: CT ABDOMEN PELVIS WO 09/01/2021 12:56 AM FINDINGS: Lungs: Lung bases clear. Liver: Enlarged liver, 18 cm craniocaudal dimension in the midclavicular line. Gallbladder and bile ducts: Gallbladder partially collapsed. Multiple calcified and radiolucent gallstones. No intrahepatic biliary dilatation. Common bile duct dilated to 9 mm. Within the limits of visualization, no distally obstructing stone or mass seen. Pancreas: Normal appearing pancreas. Spleen: Normal appearing spleen. Adrenal glands: Normal-appearing left adrenal gland. 1.8 cm indeterminate right adrenal nodule with a density of 40 Hounsfield units, image 25 of series 4. Correlation with prior imaging is recommended to document stability of size. Alternatively MRI with chemical shift imaging could be obtained for definitive evaluation. Kidneys and ureters: Normal appearing kidneys. No hydronephrosis. No obstructing ureteral stones. Stomach and bowel: No oral contrast. Stomach moderately distended with fluid and ingested material. No small bowel dilatation to suggest obstruction. Normal-appearing colon. No evidence of diverticulitis or colitis. Appendix: Normal appendix. Intraperitoneal space: No gross ascites or free air. Vasculature: Normal caliber abdominal aorta. Lymph nodes: No pathologically enlarged mesenteric, retroperitoneal, or pelvic sidewall lymph nodes. Urinary bladder: Normal appearing urinary bladder. Reproductive: Anteverted uterus, normal in size. T-shaped intrauterine device in-situ, abnormally located in the lower uterine segment with myometrial invasion of the crossbar. Normal-sized ovaries. 1.6 cm dominant left ovarian follicle/cyst. Bones/joints: No acute fracture seen among the bones of the abdomen or pelvis. Soft tissues: Diastasis recti. 4.8 cm x 5.9 cm x 4.7 cm fat containing ventral hernia superior to the umbilicus. IMPRESSION: 1. No acute bowel pathology demonstrated. 2. No obstructing ureteral stones or hydronephrosis. 3. 1.5 cm dominant left ovarian follicle. No gross ascites. 4. Abnormally positioned T-shaped intrauterine device located in the lower uterine segment with myometrial invasion of the crossbar. Gynecology follow-up recommended. 5. Gallstones. Common bile duct dilated to 9 mm. Within the limits of the exam, no distally obstructing stone or mass is seen. Clinical correlation is recommended. If there is concern for biliary obstruction, MRCP could be obtained for additional evaluation. 6. Hepatomegaly, 18 cm. 7. 4.8 cm x 5.9 cm x 4.7 cm fat containing ventral hernia superior to the umbilicus. Dictated and Authenticated by: Simba Crump MD. Ordering:KELLI Steiner MD
--- NOTE | 2022-11-24 21:02 | W.EDPROG ---
Date of service: 11/24/22 Time of Service: 20:00 Medical Decision Making This patient was signed out to me. Please see previous notes for H&P and initial eval. In brief, 42yo F presenting with left flank pain nausea. Concern for mild cellulitis in panus. Signed out pending CT; if CT reassuring would discharge home with PO abx for cellulitis. CT as below, no kidney stone, hydronephrosis, or secondary findings of pyelonephritis. Incidental mild CBD dilation without obvious obstructing stone, incidental malposition of IUD, fat containing hernia. Patient advised of these findings; aware of gallstones prior. . No RUQ pain on my exam, not concerned for serious acute biliary pathology. Labs reviewed; she did have mild acidosis and slight gap so lactate was ordered however when I evaluate patient she reports feeling much improved after fluids and entirely back to normal and is requesting discharge home. With clinical improvement this is not unreasonable. She was encouraged to return should her symptoms return. Discharged home; discharge instructions and return precautions were reviewed with patient who verbalized understanding. All questions were answered and she is in full agreement with the plan. Imaging Data Radiologic Study: Imaging: CT Scan Radiologist's impression: MPRESSION: 1. ? No acute bowel pathology demonstrated. 2. ? No obstructing ureteral stones or hydronephrosis. 3. ? 1.5 cm dominant left ovarian follicle. No gross ascites. 4. ? Abnormally positioned T-shaped intrauterine device located in the lower uterine segment with myometrial invasion of the crossbar. Gynecology follow-up recommended. 5. ? Gallstones. Common bile duct dilated to 9 mm. Within the limits of the exam, no distally obstructing stone or mass is seen. Clinical correlation is recommended. If there is concern for biliary obstruction, MRCP could be obtained for additional evaluation. 6. ? Hepatomegaly, 18 cm. 7. ? 4.8 cm x 5.9 cm x 4.7 cm fat containing ventral hernia superior to the umbilicus. Lab Data Lab results reviewed: Yes I reviewed the patient's lab results. Sign Out Sign Out Data: Sign Out Comment: left flank and abdominal pain for a few days with nausea, pending CT results. Also has area under pannus on the left side she states gets infected time to time and usually resolves with antibiotics, never required I and D, does have small area of erythema in this area. If no definitive abscess on CT would consider oral antibiotics. Last updated by Jatin Phelan MD at 11/24/22 19:41 Discharge Plan Disposition Patient Disposition: Home Condition: Good Discharge Details Clinical Impression: Left flank pain, Left sided abdominal pain Primary Care Provider: Britt Cole ED Provider: Latisha Stone Home Meds and New Rx's Prescriptions: New doxycycline hyclate 100 mg capsule 100 mg PO BID Qty: 14 0RF No Action topiramate [Topamax] 100 mg tablet 100 mg PO BID albuterol sulfate [ProAir HFA] 90 mcg/actuation HFA aerosol inhaler 2 puff Inhalation Q4H PRN Qty: 1 1RF clobetasol 0.05 % ointment 1 applic topical BID Qty: 60 6RF Rx Instructions: Apply to clitoris, labia and in the creases, around the vaginal opening, the perineum (area between the vagina and anus), around the anus clonazepam 0.5 MG tablet 0.5 mg PO TID Patient Comments: 01-09-17 pt reports that she is instructed to take one tab BID PRN. hb bupropion HCl [Wellbutrin SR] 100 MG tablet extended release 12 hr 150 mg PO DAILY ziprasidone HCl [Geodon] 60 MG capsule 60 mg PO BID Patient Comments: 02/05/17 taking 80 mg at hs and 60 mg in the am. [facility] 01-09-17 pt reports taking 100 HS and 60 AC. hb Ozempic 1 mg/dose (4 mg/3 mL) pen injector 1 mg subcut QWEEK Qty: 3 1RF Discharge Instructions Instructions: Abdominal Pain (ED) Additional Instructions: Take the antibiotic for one week for the rash on your abdomen. Call your primary care doctor tomorrow to schedule an appointment within one week to follow up on your visit here. Your IUD is going into the muscle of your uterus- call your DANCE ARTIST tomorrow to schedule an appointment to follow up on this. Return to the emergency department for new or worsening symptoms including nausea, vomiting, if your pain returns, or if you have any other concerns.
== END 2022-11-24 21:12 | disposition home or self-care (01) ==
PROVIDERS: Emergency Medicine; Emergency Provider Student in an Organized Health Care Education/Training Program; PCP Nurse Practitioner Family
DX: R10.9 Unspecified abdominal pain (principal); K76.0 Fatty (change of) liver, not elsewhere classified; K80.20 Calculus of gallbladder without cholecystitis without obstruction; T83.32XA Displacement of intrauterine contraceptive device, initial encounter; E11.9 Type 2 diabetes mellitus without complications; F17.210 Nicotine dependence, cigarettes, uncomplicated; Z79.84 Long term (current) use of oral hypoglycemic drugs
CPT/HCPCS: 80053; 81025; 82805; 82962; 83690; 87635; 96361; 96374; 99285; 74177; 81003; 83605; 83735; 85025; 99284; J2405; J3490

== ENCOUNTER 2023-02-05 18:07 | Outpatient (REF) | payer MEDICARE, SELFPAY | END 2023-02-05 18:08 | disposition home or self-care (01) | LOC: LBN 18:07 | PROVIDERS: PCP Nurse Practitioner Family; Visit Provider Nurse Practitioner Family | DX: J02.9 Acute pharyngitis, unspecified (principal) | CPT/HCPCS: 87070 ==

== ENCOUNTER 2023-02-11 22:02 | Emergency (ER) | payer MEDICARE, SELFPAY ==
[2023-02-11 22:09] VITALS: BP 125/54; PULSE 104; RESP 20; TEMP 36.6
--- NOTE | 2023-02-11 22:15 | RT.EKG_ITS ---
APPROVED REPORT Exam: Resting ECG Reason for Exam: sob Patient Location: E HR:95 bpm ECG Measurements Heart Rate 95 AXIS ID 153 P 40 QRSd 79 QRS 39 QT 340 T 33 QTc 429 Conclusion Sinus rhythm. normal axis normal ST segments
--- NOTE | 2023-02-11 22:15 | DI.RAD_ITS ---
Exam(s) XR CHEST 2V PA LATERAL EXAM: XR CHEST 2V PA LATERAL CLINICAL HISTORY: shortness of breath. TECHNIQUE: 2D digital imaging was performed. COMPARISON: CR,XR XR CHEST 2V PA LATERAL from 09/01/2021 FINDINGS: 2 views: Heart size is normal. The mediastinum is not widened. Lungs are clear. No infiltrates nor pleural effusions. IMPRESSION: No acute pulmonary findings.No significant change compared to 09/01/2021. DATA REPOSITORY: RADIATION DOSE DELIVERED:
--- NOTE | 2023-02-11 22:30 | W.ED.GENAD ---
Discharge Plan Disposition Patient Disposition: Home Condition: Good Discharge Details Clinical Impression: Swelling of both lower extremities, Asthma Primary Care Provider: Britt Cole ED Provider: Arun Rojas Home Meds and New Rx's Prescriptions: No Action topiramate [Topamax] 100 mg tablet 100 mg PO BID albuterol sulfate [ProAir HFA] 90 mcg/actuation HFA aerosol inhaler 2 puff Inhalation Q4H PRN Qty: 8.5 1RF (DME) BreatheRite MDI Spacer Spacer See Rx Instructions .ROUTE .MEDSUPPLY Qty: 1 0RF Rx Instructions: As directed clonazepam 0.5 MG tablet 0.5 mg PO TID Patient Comments: 01-09-17 pt reports that she is instructed to take one tab BID PRN. hb bupropion HCl [Wellbutrin SR] 100 MG tablet extended release 12 hr 150 mg PO DAILY ziprasidone HCl [Geodon] 60 MG capsule 60 mg PO BID Patient Comments: 02/05/17 taking 80 mg at hs and 60 mg in the am. [facility] [place] 01-09-17 pt reports taking 100 HS and 60 AC. hb doxycycline hyclate 100 mg capsule 100 mg PO BID Qty: 14 0RF Discharge Instructions Instructions: Edema (ED) Additional Instructions: keep legs elevated when you are sitting wear compression socks continue medicine as prescribed by your doctor Discharge Data Discharge Date/Time-TO BE ENTERED AT DEPARTURE: 02/11/23 23:36 Medical Decision Making Emergent evaluation of lower extremity swelling. Initial differential includes medication reaction, obesity dependent edema, CHF. Does have some mild pitting edema on exam but no hypoxia or tachypnea or other signs of CHF. Lab work obtained which revealed normal cardiac biomarkers. Creatinine at upper limit of normal but this is baseline for the patient. Chest x-ray reviewed and independently interpreted by me, normal heart size, no signs of pulmonary edema. She has a concurrent URI and uses tobacco and albuterol for symptom improvement. Advised against continuing to smoke cigarettes and recommended the albuterol MDI with spacer. A spacer was provided to the patient. At this time I think she is stable for discharge and I recommend that she continue the medications as prescribed by her provider who she has follow-up with this week. Medical Records Medical records reviewed: Yes I reviewed the patient's medical records. Lab Data Lab results reviewed: Yes I reviewed the patient's lab results. ECG Data Attestation: I personally reviewed and interpreted this ECG (s) as follows: Interpretation: Sinus, 95, normal axis, no acute ischemic changes HPI General Date/Time Provider Initiated Documentation: 02/11/23 22:06. Limitations to Documentation: no limitations. Information obtained by: patient. HPI Narrative: 42y F with PMH of DM, GERD, obesity, GERARD, presents for evaluation of bilateral LE swelling reports onset of symptoms symptoms a few days ago. Her psychiatrist thought that it might be secondary to the trazodone that she has recently started. Her psychiatrist stopped the trazodone and started Lasix 20 mg daily. She started this yesterday. She has been having a URI preceding this leg swelling with associated cough. Symptoms improve with smoking cigarettes, albuterol inhaler and cold air. She denies any chest pain, dyspnea on exertion or orthopnea. She is supposed to use a CPAP at night to sleep but has not been doing so. Related Data Home Medications Medication Instructions Recorded Confirmed bupropion HCl 100 mg tablet,12 hr 150 mg PO DAILY 06/28/15 02/11/23 sustained-release (Wellbutrin SR) clonazepam 0.5 mg tablet 0.5 mg PO TID 06/28/15 02/11/23 ziprasidone HCl 60 mg capsule 60 mg PO BID 06/28/15 02/11/23 (Geodon) topiramate 100 mg tablet (Topamax) 100 mg PO BID 07/23/22 02/11/23 doxycycline hyclate 100 mg capsule 100 mg PO BID #14 caps 11/24/22 02/11/23 albuterol sulfate 90 mcg/actuation 2 puff inhalation Q4H PRN wheezing 02/05/23 02/11/23 aerosol inhaler (ProAir HFA) and SOB #8.5 grams inhalational spacing device #1 ea 02/05/23 02/05/23 (BreatheRite MDI Spacer) Previous Rx's Medication Instructions Recorded doxycycline hyclate 100 mg capsule 100 mg PO BID #14 caps 11/24/22 albuterol sulfate 90 mcg/actuation 2 puff inhalation Q4H PRN wheezing 02/05/23 aerosol inhaler (ProAir HFA) and SOB #8.5 grams inhalational spacing device #1 ea 02/05/23 (BreatheRite MDI Spacer) Allergies Allergy/AdvReac Type Severity Reaction Status Date / Time penicillin V Allergy Unknown Skin Rash Unverified 02/11/23 22:17 General Stated Complaint: Vascular CLIVE: 4 PFSH All Active Problems Asthma (Chronic) Swelling of both lower extremities (Acute) Diabetes mellitus (Chronic) GERD (gastroesophageal reflux disease) (Chronic) Abscess (Acute) Morbid obesity (Acute) Medical History Lichen sclerosus IUD surveillance History of COVID-19 (~01/2021) 01/2021 Asthma Bipolar disorder Anxiety Family History Mother Personal history of malignant neoplasm Breast Cancer Social History Smoking/Tobacco Use Status: Current every day Tobacco Type: cigarettes Years smoked: 15 Smoking risk assessment performed?: Yes Alcohol Intake: never Drug use: Never Substance use type: does not use Details: Pt unable to answer these questions Housing: house Do you feel safe at home: Yes Do you feel safe in your relationship?: Yes History History 2 Para 1 Hx # Term Pregnancies Multiple births Hx # Pregnancies Ectopic pregnancies AB induced Hx Number of Living Children AB spontaneous Exam Narrative Exam Narrative: Review of Systems: All systems reviewed & are unremarkable except as noted in HPI and below: CONSTITUTIONAL: Alert and oriented Well-developed, no acute distress HEENT: NCAT EYES: PERRL, no conjunctival injection CVS: RRR, No murmurs or gallops. 1+ bilateral lower extremity edema RESP: Unlabored respiratory effort, Clear to auscultation bilaterally expiratory wheezing GI: Soft, Nontender, Nondistended, No organomegaly MSK: Extremities with full range of motion, no deformity or TTP SKIN: Warm, Dry. No rashes or lesions. NEURO: No focal neurologic deficits. Course Vital Signs Vital signs: Vital Signs Temperature 36.6 C 02/11/23 22:09 Pulse 104 H 02/11/23 22:09 Respiratory Rate 20 02/11/23 22:09 Blood Pressure 125/54 L 02/11/23 22:09 Temperature 36.6 C 02/11/23 22:09 Temperature Source Temporal Artery Scan 02/11/23 22:09 Pulse 104 H 02/11/23 22:09 Respiratory Rate 20 02/11/23 22:09 Blood Pressure 125/54 L 02/11/23 22:09 Pain Level 6 02/11/23 22:09
[2023-02-11] MEDS: Albuterol/Ipratropium 3 ML UPD VIAL UPD (22:37)
[2023-02-11 22:43] LABS: Abs Immature Grans 0.16 10^3/uL (0.0-0.06); Absolute Basophil Count 0.09 10^3/uL (0.0-0.2); Absolute Eosinophil Count 0.63 10^3/uL (0.0-0.7); Absolute Lymphocyte Count 3.76 10^3/uL (1.2-3.4); Absolute Monocyte Count 0.79 10^3/uL (0.1-0.8); Basophils % 0.6; Eosinophils % 4.1; HCT 42.3 % (36.0-46.0); HGB 13.6 g/dL (11.2-15.7); Lymphocytes % 24.4; MCH 28.6 pg (27.0-33.0); MCHC 32.2 % (32.0-36.0); MCV 89 fL (80-95); MPV 9.4 fL (8.0-11.0); Monocytes % 5.1; Neutrophils % 64.8; Platelet Count 362 10^3/uL (130-400); RBC 4.75 10^6/uL (3.93-5.22); WBC 15.43 10^3/uL (4.4-10.8)
[2023-02-11 23:06] LABS: NT-proBNP 26 pg/mL (<300); Troponin I < 50 ng/L (<or=60)
[2023-02-11 23:09] LABS: ALT 48 U/L (14-59); AST 18 U/L (15-37); Albumin 3.3 g/dL (3.4-5.0); Alkaline Phosphatase 107 U/L (46-116); Anion Gap 7.3 mmol/L (3-11); BUN 15 mg/dL (7-18); Bilirubin, Total 0.2 mg/dL (0.2-1.0); CO2 27.7 mmol/L (21.0-32.0); CREATININE 1.1 mg/dL (0.55-1.02); Calcium 8.9 mg/dL (8.5-10.1); Chloride 101 mmol/L (98-107); Estimated GFR 63.94 (mL/min/1.73m2); Glucose 209 mg/dL (74-106); Potassium 4.1 mmol/L (3.5-5.1); Sodium 136 mmol/L (136-145); Total Protein 6.6 g/dL (6.4-8.2)
--- NOTE | 2023-02-11 23:24 | DI.VRAD_ITS ---
PROCEDURE INFORMATION: Exam: XR Chest Exam date and time: 02/11/2023 10:53 PM Age: 42 years old Clinical indication: Shortness of breath; Patient HX: SOB TECHNIQUE: Imaging protocol: Radiologic exam of the chest. Views: 2 views. COMPARISON: CR XR CHEST 2V PA LATERAL 09/01/2021 12:58 AM FINDINGS: Lungs: The pulmonary vasculature is normal. Pleural spaces: There is no evidence of pneumothorax. There are no pleural effusions present. Heart/Mediastinum: Indistinctness of the right heart border may represent early infiltrate, right middle lobe pneumonia can not be excluded. The cardiac silhouette is within normal limits. The mediastinum is normal. Bones/joints: The spine, sternum, ribs, and pectoral girdles show no evidence of acute abnormality. The thoracic spine demonstrates mild degenerative changes at multiple levels. Soft tissues: There are no soft tissue masses or calcifications. IMPRESSION: Indistinctness of the right heart border may represent early infiltrate, right middle lobe pneumonia can not be excluded. Dictated and Authenticated by: Galdino Clarke MD. [facility]ing[facility] MD
[2023-02-11 23:35] VITALS: RESP 18
== END 2023-02-11 23:36 | disposition home or self-care (01) ==
PROVIDERS: Emergency Provider Emergency Medicine; PCP Nurse Practitioner Family
DX: R22.43 Localized swelling, mass and lump, lower limb, bilateral (principal); E11.9 Type 2 diabetes mellitus without complications; J45.909 Unspecified asthma, uncomplicated; F17.210 Nicotine dependence, cigarettes, uncomplicated
CPT/HCPCS: 80053; 93005; 99283; 71046; 83880; 84484; 85025; 93010; J7620

== ENCOUNTER 2023-02-15 23:38 | Emergency (ER) | payer MEDICARE, SELFPAY ==
[2023-02-15 23:40] VITALS: BP 130/63; PULSE 122; RESP 18; TEMP 36.6; O2SAT 96
--- NOTE | 2023-02-16 00:13 | ED.GENADUL_ITS ---
Discharge Plan Discharge Details Chief Complaint: PsychEval Primary Care Provider: Britt Cole ED Provider: Sabino Phelan Home Meds and New Rx's Prescriptions: No Action topiramate [Topamax] 100 mg tablet 100 mg PO BID albuterol sulfate [ProAir HFA] 90 mcg/actuation HFA aerosol inhaler 2 puff Inhalation Q4H PRN Qty: 8.5 1RF (DME) BreatheRite MDI Spacer Spacer See Rx Instructions .ROUTE .MEDSUPPLY Qty: 1 0RF Rx Instructions: As directed ipratropium-albuterol 0.5 mg-3 mg(2.5 mg base)/3 mL solution for nebulization 3 ml inhalation QID PRN (Reason: wheezing and shortness of breath) Qty: 90 3RF clonazepam 0.5 MG tablet 0.5 mg PO TID Patient Comments: 01-09-17 pt reports that she is instructed to take one tab BID PRN. hb bupropion HCl [Wellbutrin SR] 100 MG tablet extended release 12 hr 150 mg PO DAILY ziprasidone HCl [Geodon] 60 MG capsule 60 mg PO BID Patient Comments: 02/05/17 taking 80 mg at hs and 60 mg in the am. [facility] 01-09-17 pt reports taking 100 HS and 60 AC. Medical Decision Making This is a 42-year-old female with history of bipolar disorder who now presents with manic behavior. Appears to have significant manic behavior on my evaluation. She admits to not sleeping for the last 3 weeks. The family reports she has not been taking her medications and the patient says that her pills are poisoned but that she was still taking them. She thinks her and mom are trying to kill her. Certainly some safety concerns because it appears that the patient locked herself in the home with the child and would let the mom or the dad see the patient. DCF report has already been filed with Leticia with [facility]. Emergency evaluation paperwork is being initiated by mary Durham. She will be staying here tonight and they will see her again tomorrow as well. I offered the patient any of her home medications but she is refusing. I offered her food and water and she is refusing saying I am trying to poison her. I offered the patient any medications to help keep calm her to sleep and she also refused this. She denies any complaints. Sent basic labs that were unremarkable. Medically cleared at this time. HPI General Date/Time Provider Initiated Documentation: 02/16/23 00:11 . Information obtained by: police . HPI Narrative: 42-year-old female history of bipolar disorder is now presenting with manic behavior. Arrives with the police. Apparently according to the patient's , Aunt, and mom the patient has had erratic behavior over the last 3 weeks. Not sleeping. Apparently since her last hospitalization the mom had been giving her medications to her. The mom says the patient has not been taking her medications over this time. She thinks the mom is trying to poison her. She admits this to me on my evaluation. She has apparently been throwing lit cigarettes into the trash bin. She has been boiling water constantly in the home and leaving it for hours on end. She thinks her is out to get her and her son. Apparently the patient took this on and locked themselves in their home and would not let the mom or the make sure that the child was safe. Teresa and [facility] were called. Leticia with an [facility] arrived on scene and attained most of this history. Ultimately the decision was made due to the safety of the child and for Sirena's own wellbeing to have her brought here to the emergency department by state police. Patient admits that she has not been sleeping for the last 3 weeks. She says her medications are poisoned. She says that her mom and her are out to get her and kill her. Plan was to bring the patient here and Leticia will be filing an emergency evaluation. Leticia with [facility] filed a report with [facility] as well. Patient denies any complaints to me other than details as above. Leticia tried to call and speak with Sirena over the phone and despite being on speaker phone and trying to get Leticia to speak with Sirena used expletives and said I am not talking to you. Related Data Home Medications Medication Instructions Recorded Confirmed bupropion HCl 100 mg tablet,12 hr 150 mg PO DAILY 06/28/15 02/12/23 sustained-release (Wellbutrin SR) clonazepam 0.5 mg tablet 0.5 mg PO TID 06/28/15 02/12/23 ziprasidone HCl 60 mg capsule 60 mg PO BID 06/28/15 02/12/23 (Geodon) topiramate 100 mg tablet (Topamax) 100 mg PO BID 07/23/22 02/12/23 albuterol sulfate 90 mcg/actuation 2 puff inhalation Q4H PRN wheezing 02/05/23 02/12/23 aerosol inhaler (ProAir HFA) and SOB #8.5 grams inhalational spacing device #1 ea 02/05/23 02/12/23 (BreatheRite MDI Spacer) ipratropium 0.5 mg-albuterol 3 mg 3 ml inhalation QID PRN wheezing 02/12/2307/31 (2.5 mg base)/3 mL nebulization and shortness of breath #90 mL soln Previous Rx's Medication Instructions Recorded albuterol sulfate 90 mcg/actuation 2 puff inhalation Q4H PRN wheezing 02/05/23 aerosol inhaler (ProAir HFA) and SOB #8.5 grams inhalational spacing device #1 ea 02/05/23 (BreatheRite MDI Spacer) ipratropium 0.5 mg-albuterol 3 mg 3 ml inhalation QID PRN wheezing 02/12/23 (2.5 mg base)/3 mL nebulization and shortness of breath #90 mL soln Allergies Allergy/AdvReac Type Severity Reaction Status Date / Time penicillin V Allergy Unknown Skin Rash Unverified 02/12/23 16:40 General Stated Complaint: PsychEval CLIVE: 2 Review of Systems Constitutional Constitutional: Denies chills, Denies fever(s) and Denies headache(s) Eyes Eyes: Denies change in vision ENT Ears, Nose, Mouth, and Throat: Denies headache(s) and Denies odynophagia Cardiovascular Cardiovascular: Denies chest pain and Denies dyspnea Respiratory Respiratory: Denies dyspnea Gastrointestinal Gastrointestinal: Denies abdominal pain, Denies diarrhea, Denies nausea, Denies odynophagia and Denies vomiting Genitourinary Genitourinary: Denies dysuria Musculoskeletal Musculoskeletal: Denies myalgias Integumentary/Breasts Skin/Breast: Denies changing lesions Neurologic Neurologic: Reports behavioral changes and Denies headache(s) Psychiatric Psychiatric: Reports abnormal sleep pattern, Reports behavioral changes and Reports other (delusions.) Endocrine Endocrine: Denies heat intolerance Hematologic/Lymphatic Hematologic/Lymphatic: Denies lymphadenopathy PFSH All Active Problems Asthma (Chronic) Swelling of both lower extremities (Acute) Diabetes mellitus (Chronic) GERD (gastroesophageal reflux disease) (Chronic) Abscess (Acute) Morbid obesity (Acute) Medical History Lichen sclerosus IUD surveillance History of COVID-19 (~01/2021) 01/2021 Asthma Bipolar disorder Anxiety Family History Mother Personal history of malignant neoplasm Breast Cancer Social History Smoking/Tobacco Use Status: Current every day Tobacco Type: cigarettes Years smoked: 15 Smoking risk assessment performed?: Yes Alcohol Intake: never Drug use: Never Substance use type: does not use Details: Pt unable to answer these questions Housing: house Do you feel safe at home: No Do you feel safe in your relationship?: No History History 2 Para 1 Hx # Term Pregnancies Multiple births Hx # Pregnancies Ectopic pregnancies AB induced Hx Number of Living Children AB spontaneous Exam Const Orientation: alert, awake and oriented x3 HENMT Head: normal to inspection Ears: external ears normal Mouth: moist mucous membranes Eyes Pupils: PERRL EOM: EOM intact bilaterally and No nystagmus Neck Neck: full ROM and no tracheal deviation Chest Chest: normal inspection of the chest Resp Auscultation: clear to auscultation bilaterally Cardio Rate: regular rate Rhythm: regular rhythm GI Inspection: normal to inspection Palpation: soft, no guarding, not rigid and nontender Back/Spine/Pelvis Back: No no CVA tenderness Thoracic/Lumbar Spine: thoracic and lumbar spine normal to inspection Skin General skin exam: no rashes or lesions noted Neuro General: patient alert, patient awake and patient oriented x3 Cranial Nerves: CN's II-XI intact bilaterally, PERRL and no nystagmus Cognition: normal cognition Motor: muscle tone normal throughout and strength 5/5 throughout Sensory Exam: no sensory deficits noted Extrem General: normal to inspection Psych Speech and Movement: agitated and pressured speech Mood: manic mood Affect: irritable affect Attitude: guarded Thought Content: delusions Insight: poor Course Vital Signs Vital signs: Vital Signs Temperature 36.6 C 12/08/23 23:40 Pulse 122 H 02/15/23 23:40 Respiratory Rate 18 02/15/23 23:40 Blood Pressure 130/63 02/15/23 23:40 Pulse Oximetry 96 02/15/23 23:40 Temperature 36.6 C 02/15/23 23:40 Temperature Source Temporal Artery Scan 02/15/23 23:40 Pulse 122 H 02/15/23 23:40 Respiratory Rate 18 02/15/23 23:40 Respiratory Effort Normal 02/15/23 23:43 Blood Pressure 130/63 02/15/23 23:40 Pulse Oximetry 96 02/15/23 23:40 Pain Level 0 02/15/23 23:40
[2023-02-16 00:25] LABS: Abs Immature Grans 0.17 10^3/uL (0.0-0.06); Basophils % 0.5; Eosinophils % 2.9; HCT 42.4 % (36.0-46.0); HGB 13.9 g/dL (11.2-15.7); Immature Grans % 0.9; Lymphocytes % 19.8; MCH 28.6 pg (27.0-33.0); MCHC 32.8 % (32.0-36.0); MCV 87 fL (80-95); MPV 9.6 fL (8.0-11.0); Monocytes % 4.8; Neutrophils % 71.1; Platelet Count 375 10^3/uL (130-400); RBC 4.86 10^6/uL (3.93-5.22); RDW 15.2 % (11.7-14.6); RDW-SD 48.2 fL; WBC 19.51 10^3/uL (4.4-10.8)
[2023-02-16 00:35] LABS: Absolute Eosinophil Count 0.57 10^3/uL (0.0-0.7); Absolute Lymphocyte Count 3.86 10^3/uL (1.2-3.4); Absolute Monocyte Count 0.94 10^3/uL (0.1-0.8); Absolute Neutrophil Count 13.87 10^3/uL (1.2-6.7)
[2023-02-16 00:44] LABS: Salicylate 3.2 mg/dL (<2.8)
[2023-02-16 00:45] LABS: Acetaminophen < 2 ug/mL (10-30); HCG Qual (Serum) Negative
[2023-02-16 00:48] LABS: ALT 57 U/L (14-59); AST 39 U/L (15-37); Albumin 3.5 g/dL (3.4-5.0); Alkaline Phosphatase 95 U/L (46-116); Anion Gap 12.8 mmol/L (3-11); BUN 15 mg/dL (7-18); Bilirubin, Total 0.6 mg/dL (0.2-1.0); CO2 22.2 mmol/L (21.0-32.0); CREATININE 1.2 mg/dL (0.55-1.02); Calcium 9.6 mg/dL (8.5-10.1); Chloride 97 mmol/L (98-107); ETHANOL BLOOD < 3.0 mg/dL (<10); Glucose 186 mg/dL (74-106); Potassium 3.9 mmol/L (3.5-5.1); Sodium 132 mmol/L (136-145); TSH (W/Ref FT4) 3.02 uIU/mL (0.36-3.74); Total Protein 7.1 g/dL (6.4-8.2)
[2023-02-16 00:48] LABS: Bilirubin Negative (Negative); Blood Negative (Negative); Clarity Sl Cloudy (Clear); Glucose Negative (Negative); Ketones Negative (Negative); Leukocyte Esterase Small (Negative); Nitrite Negative (Negative); Urobilinogen 0.2 mg/dL (Up to 0.2)
[2023-02-16 00:52] LABS: Bacteria Few HPF (Negative); C & S Indicated? No/Sq. Contamination; Casts Negative LPF (Negative); Crystals Negative HPF (Negative); Epithelial Cells Moderate HPF (Negative); Mucus Negative (Negative); RBC Negative HPF (0-2)
[2023-02-16 00:58] LABS: *AMPHETAMINES SCREEN URINE Negative (Negative); *BARBITURATES SCREEN URINE Negative (Negative); *BENZODIAZEPINES SCREEN URINE Negative (Negative); Cannabinoids THC Negative (Negative); Cocaine Screen,Urine Negative (Negative); METHADONE URINE SCREEN Negative (Negative); OPIATES URINE SCREEN Negative (Negative)
[2023-02-16 01:17] LABS: Tricyclic Antidepressants Negative (Negative)
--- NOTE | 2023-02-16 01:25 | NUR.NOTE ---
Faxed over labs and emergency room visit note to [facility] for medical clearance.
--- NOTE | 2023-02-16 01:43 | NUR.NOTE ---
When talking with PT she made the statement that she could kill anyone with her bare hands. Nursing Note:
--- NOTE | 2023-02-16 04:53 | NUR.NOTE ---
Patient Belongings are placed in Zone B in Locker #4.
--- NOTE | 2023-02-16 05:10 | NUR.NOTE ---
PT is telling nurse. I will make sure you a slow and painful Nursing Note:
--- NOTE | 2023-02-16 05:15 | NUR.NOTE ---
PT asked for a glass of water. PT was provided with a glass of water. PT dumped the glass of water on the floor and said I guess you have to come in here and clean it up now. This nurse believes that the PT is trying to get me into the room so she can attack me. I will continue to monitor the PT from the safety of the nurses station. Nursing Note:
[2023-02-16] MEDS: LORazepam 2 MG/ML VIAL IM (06:10)
[2023-02-16] MEDS: Haloperidol 5 MG TAB PO (06:10)
[2023-02-16] MEDS: diphenhydrAMINE 50 MG/ML VIAL IM (06:10)
--- NOTE | 2023-02-16 09:01 | CMSP_ITS ---
Date of service: 02/16/23 Time of Service: 09:01 Care Management Safety Plan Status Status: Involuntary Reason for Wait Reason for Wait: Inpatient Admission Safety Plan Safety Plan: INVOLUNTARY FOR INPATIENT PSYCHIATRIC STABILIZATION. Safety plan has been established to meet the needs of the patient, and consid eration of the care team, to adhere to patient goals, identify restrictions based on behavioral status, address nutrition, and determine allowed personal belongings, tools for hygiene and personal care. Determine level of activity including ambulation, level of supervision, visitors, and determine privileges based on behaviors and level of engagement by pt. Sirena, well known to [facility], presents with delusional and paranoid thoughts, and homicidal ideation in the setting of medication changes and lack of sleep x3/weeks. Behaviors have warranted intervention; including chemical restraint- though patient was agreeable to medication. Sirena is being held involuntarily by Department of Mental Health at this time. In the past, sleep and consistent medication have permitted Sirena to stabilize; placement will be sought while she remains at [facility]. SAFETY PLAN: 1. Will remain on SI/HI precautions. In Paper Clothes 2. Will remain in room under direct supervision of one-on-one staff at all times provided by [employer]; MALLIKA, SIDE STITCHER sports health club membership advisors. 3. May have paper cups, plates, finger foods as well as a cardboard spoon 4. Follow [facility] Management of the Admitted Behavioral Health Patient policy. 5. Comfort bath, and shower available in Zone B at RN discretion. 6. Personal items limited to jewelry that is unable to be removed. 7. Visitors: limited to those Sirena wishes to see, at RN discretion, and only when deemed helpful for stabilization. 8. Activities: soft items available in Zone B without restriction. 9. ?Bathroom privileges available in Zone B without restriction. 10. Phone: limited to legal contact; at RN discretion. 11. Due to INVOLUNTARY status, patient is being held at [facility] by the Department of Mental Health ([facility]) until 2nd certification by [facility] Psychiatrist can be performed (within 24 hours). Staff will provide de-escalation support (CPI) as needed. If patient wishes to leave [facility], staff will contact [facility] Crisis Screener ([phone]) and On-Call Paint Stock Clerk ([phone]) as soon as possible. In the event of elopement, notify [facility] Police ([phone]). Patient is currently involuntarily at [facility]. [facility] Frontline Oracle Obiee Developer will continue seeking placement. Please contact the Paint Stock Clerk ([phone]) for any needed changes to Safety Plan. Safety plan has been provided to interdepartmental care team. Patient will be transported by wine steward/stewardess at time of discharge.
--- NOTE | 2023-02-16 09:01 | PDOC.CMSAFE ---
Date of service: 02/16/23 Time of Service: 09:01 Care Management Safety Plan Status Status: Involuntary Reason for Wait Reason for Wait: Inpatient Admission Safety Plan Safety Plan: INVOLUNTARY FOR INPATIENT PSYCHIATRIC STABILIZATION. Safety plan has been established to meet the needs of the patient, and consideration of the care team, to adhere to patient goals, identify restrictions based on behavioral status, address nutrition, and determine allowed personal belongings, tools for hygiene and personal care. Determine level of activity including ambulation, level of supervision, visitors, and determine privileges based on behaviors and level of engagement by pt. Sirena, well known to [facility], presents with delusional and paranoid thoughts, and homicidal ideation in the setting of medication changes and lack of sleep x3/weeks. Behaviors have warranted intervention; including chemical restraint-though patient was agreeable to medication. Sirena is being held involuntarily by Department of Mental Health at this time. In the past, sleep and consistent medication have permitted Sirena to stabilize; placement will be sought while she remains at [facility]. SAFETY PLAN: 1. Will remain on SI/HI precautions. In Paper Clothes 2. Will remain in room under direct supervision of one-on-one staff at all times provided by [employer]; MALLIKA, MULTIMEDIA PRODUCER locator specialist. 3. May have paper cups, plates, finger foods as well as a cardboard spoon 4. Follow [facility] Management of the Admitted Behavioral Health Patient policy. 5. Comfort bath, and shower available in Zone B at RN discretion. 6. Personal items limited to jewelry that is unable to be removed. 7. Visitors: limited to those Sirena wishes to see, at RN discretion, and only when deemed helpful for stabilization. 8. Activities: soft items available in Zone B without restriction. 9. ?Bathroom privileges available in Zone B without restriction. 10. Phone: limited to legal contact; at RN discretion. 11. Due to INVOLUNTARY status, patient is being held at [facility] by the Department of Mental Health ([facility]) until 2nd certification by [facility] Psychiatrist can be performed (within 24 hours). Staff will provide de-escalation support (CPI) as needed. If patient wishes to leave [facility], staff will contact [facility] Crisis Screener ([phone]) and On-Call Robot Programmer ([phone]) as soon as possible. In the event of elopement, notify [facility] Police ([phone]). Patient is currently involuntarily at [facility]. [facility] Frontline Probation Supervisor will continue seeking placement. Please contact the Robot Programmer ([phone]) for any needed changes to Safety Plan. Safety plan has been provided to interdepartmental care team. Patient will be transported by special deputy sheriff at time of discharge.
[2023-02-16] MEDS: LORazepam 1 MG TAB PO (10:00)
[2023-02-16] MEDS: Nystatin POWDER 15 GM JAR TP (10:00)
[2023-02-16] MEDS: buPROPion-CR 100 MG TABCR PO (10:00)
[2023-02-16] MEDS: Topiramate 100 MG TAB PO ×2 (10:00→19:54)
[2023-02-16] MEDS: OLANZapine 10 MG TAB PO (10:00)
[2023-02-16] MEDS: ZIPRASIDONE 60 MG PO ×2 (10:01→19:54)
--- NOTE | 2023-02-16 13:12 | NUR.NOTE ---
Nursing Note: Sanjay Sloan called at 1037- see hourly note about behaviors. Never needed to restrain the patient. We were able to redirect her enough to making it safe for herself and staff without any restraints needed.
[2023-02-16] MEDS: clonazePAM 0.5 MG TAB PO ×2 (15:22→19:53)
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
[2023-02-16] MEDS: Ibuprofen 600 MG TAB PO (15:30)
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
--- NOTE | 2023-02-16 17:50 | NUR.NOTE ---
Nursing Note:pt has asked at this time to remove everyone on her HIPPA. pt states that if she wants anyone informed she will let staff know or she will reach out herself.
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
[2023-02-16] MEDS: OLANZapine 5 MG TAB (20:41)
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
[2023-02-16] MEDS: diphenhydrAMINE 25 MG CAP 50 MG PO (23:55)
[2023-02-17] MEDS: Ibuprofen 600 MG TAB PO (01:50)
[2023-02-17] MEDS: LORazepam 1 MG TAB 2 MG PO (04:49)
[2023-02-17 04:55] VITALS: BP 105/65; PULSE 83; RESP 18; TEMP 36.6; O2SAT 99
[2023-02-17] MEDS: buPROPion-CR 100 MG TABCR PO (08:59)
[2023-02-17] MEDS: clonazePAM 0.5 MG TAB PO (08:59)
[2023-02-17] MEDS: Nystatin POWDER 15 GM JAR TP (08:59)
[2023-02-17] MEDS: ZIPRASIDONE 60 MG PO (09:00)
[2023-02-17] MEDS: Topiramate 100 MG TAB PO ×2 (09:04→19:47)
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
[2023-02-17 10:14] LABS: Abs Immature Grans 0.08 10^3/uL (0.0-0.06); Absolute Basophil Count 0.09 10^3/uL (0.0-0.2); Absolute Eosinophil Count 0.51 10^3/uL (0.0-0.7); Absolute Lymphocyte Count 2.84 10^3/uL (1.2-3.4); Absolute Monocyte Count 0.65 10^3/uL (0.1-0.8); Basophils % 0.8; Eosinophils % 4.6; HCT 40.7 % (36.0-46.0); HGB 13.2 g/dL (11.2-15.7); Immature Grans % 0.7; Lymphocytes % 25.8; MCH 28.6 pg (27.0-33.0); MCHC 32.4 % (32.0-36.0); MCV 88 fL (80-95); MPV 9.7 fL (8.0-11.0); Monocytes % 5.9; Neutrophils % 62.2; Platelet Count 352 10^3/uL (130-400); RBC 4.62 10^6/uL (3.93-5.22); RDW 15.2 % (11.7-14.6); RDW-SD 48.5 fL; WBC 11.01 10^3/uL (4.4-10.8)
[2023-02-17 10:15] VITALS: BP 123/74; PULSE 105; RESP 18; TEMP 36.6; O2SAT 99
[2023-02-17 10:24] LABS: ALT 72 U/L (14-59); AST 53 U/L (15-37); Albumin 3.4 g/dL (3.4-5.0); Alkaline Phosphatase 87 U/L (46-116); Anion Gap 10.4 mmol/L (3-11); BUN 16 mg/dL (7-18); Bilirubin, Total 0.5 mg/dL (0.2-1.0); CO2 26.6 mmol/L (21.0-32.0); CREATININE 1.1 mg/dL (0.55-1.02); Calcium 8.9 mg/dL (8.5-10.1); Chloride 99 mmol/L (98-107); Estimated GFR 63.94 (mL/min/1.73m2); Glucose 120 mg/dL (74-106); Potassium 3.6 mmol/L (3.5-5.1); Sodium 136 mmol/L (136-145)
[2023-02-17 10:46] LABS: Absolute Neutrophil Count 6.85 10^3/uL (1.2-6.7)
[2023-02-17] MEDS: Nicotine 4 MG GUM ×2 (13:19→17:30)
--- NOTE | 2023-02-17 13:55 | PDOC.CMSAFE ---
Date of service: 02/17/23 Time of Service: 13:55 Care Management Safety Plan Status Status: Involuntary Reason for Wait Reason for Wait: Inpatient Admission Safety Plan Safety Plan: INVOLUNTARY FOR INPATIENT PSYCHIATRIC STABILIZATION. Safety plan has been established to meet the needs of the patient, and consideration of the care team, to adhere to patient goals, identify restrictions based on behavioral status, address nutrition, and determine allowed personal belongings, tools for hygiene and personal care. Determine level of activity including ambulation, level of supervision, visitors, and determine privileges based on behaviors and level of engagement by pt. Sirena's presentation improved in the last 24 hours, still meeting requirement for involuntary psychiatric stabilization per, [facility], Leticia. Sirena is being held involuntarily by Department of Mental Health at this time. In the past, sleep and consistent medication have permitted Sirena to stabilize; placement will be sought while she remains at [facility]. Leticia reports being hopeful for transfer to [facility] tomorrow. CM following. No change to safety plan at this time. SAFETY PLAN: 1. Will remain on SI/HI precautions. In Paper Clothes 2. Will remain in room under direct supervision of one-on-one staff at all times provided by [employer]; MALLIKA, SOFT SUGAR SUPERVISOR electric car operator. 3. May have paper cups, plates, finger foods as well as a cardboard spoon 4. Follow [facility] Management of the Admitted Behavioral Health Patient policy. 5. Comfort bath, and shower available in Zone B at RN discretion. 6. Personal items limited to jewelry that is unable to be removed. 7. Visitors: limited to those Sirena wishes to see, at RN discretion, and only when deemed helpful for stabilization. 8. Activities: soft items available in Zone B without restriction including music and television. 9. ?Bathroom privileges available in Zone B without restriction. 10. Phone: limited to legal contact; at RN discretion. 11. Due to INVOLUNTARY status, patient is being held at [facility] by the Department of Mental Health ([facility]) until 2nd certification by [facility] Psychiatrist can be performed (within 24 hours). Staff will provide de-escalation support (CPI) as needed. If patient wishes to leave [facility], staff will contact [facility] Crisis Screener ([phone]) and On-Call Line Mechanic ([phone]) as soon as possible. In the event of elopement, notify [facility] Police ([phone]). Patient is currently involuntarily at [facility]. [facility] Frontline Biztalk Administrator will continue seeking placement. Please contact the Line Mechanic ([phone]) for any needed changes to Safety Plan. Safety plan has been provided to interdepartmental care team. Patient will be transported by pretzel twisting machine operator at time of discharge.
[2023-02-17] MEDS: clonazePAM 0.5 MG TAB 1 MG PO (14:38)
[2023-02-17 15:52] LABS: Bilirubin Negative (Negative); Blood Negative (Negative); Clarity Clear (Clear); Glucose Negative (Negative); Ketones Negative (Negative); Leukocyte Esterase Small (Negative); Nitrite Negative (Negative); Urobilinogen 0.2 mg/dL (Up to 0.2)
[2023-02-17 16:00] LABS: Bacteria Few HPF (Negative); C & S Indicated? Yes; Crystals Negative HPF (Negative); Epithelial Cells Few HPF (Negative); Mucus Negative (Negative); RBC 0-2 HPF (0-2)
[2023-02-17] MEDS: Nicotine 2 MG GUM CH (19:47)
[2023-02-17] MEDS: Ziprasidone 20 MG CAP (20:41)
[2023-02-18] MEDS: Midazolam 10 MG/2 ML VIAL NS ×2 (00:52→02:45)
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
--- NOTE | 2023-02-18 01:01 | NUR.NOTE ---
Pt continuously ringing the emergency button in room and in hallway. Pt was asked to stop. Pt continued to do so. Pt attempting to enter into staff area. made aware. V.O. for Versed obtained. Pt willingly accepted IM Versed in Right Deltoid.
[2023-02-18] MEDS: Nicotine 2 MG GUM CH (09:00)
[2023-02-18] MEDS: Nystatin POWDER 15 GM JAR TP (09:00)
[2023-02-18] MEDS: Topiramate 100 MG TAB PO ×2 (09:50→21:26)
[2023-02-18] MEDS: clonazePAM 0.5 MG TAB 1 MG PO ×2 (09:50→14:45)
[2023-02-18 09:57] VITALS: BP 132/84; PULSE 90; RESP 18; TEMP 36.6; O2SAT 99
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
[2023-02-18 10:47] LABS: Lyme Ab w Rflx to Lyme Confirm Negative (Negative)
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
[2023-02-18 11:30] LABS: Syphilis Serology (RPR) Negative (Negative)
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
[2023-02-19 14:54] LABS: Chlamydia Result Negative (Negative); GC Result Negative (Negative)
[2023-02-19 16:36] LABS: Anaplasma phagocytophilum Negative (Negative); B. miyamotoi PCR Negative (Negative); Babesia divergens/MO-1 Negative (Negative); Babesia duncani Negative (Negative); Babesia microti Negative (Negative); Ehrlichia chaffeensis Negative (Negative); Ehrlichia ewingii/canis Negative (Negative); Ehrlichia muris eauclairensis Negative (Negative)
--- NOTE | 2023-02-19 18:14 | NUR.NOTE ---
Accessed Pt chart to see if Pt had used an antibiotic during her stay
== END 2023-02-18 21:16 ==
PROVIDERS: Student in an Organized Health Care Education/Training Program; Emergency Provider Student in an Organized Health Care Education/Training Program; PCP Nurse Practitioner Family
DX: F31.10 Bipolar disorder, current episode manic without psychotic features, unspecified (principal); B37.2 Candidiasis of skin and nail; E11.9 Type 2 diabetes mellitus without complications; F17.210 Nicotine dependence, cigarettes, uncomplicated; Z79.899 Other long term (current) drug therapy
CPT/HCPCS: 00123; 36410; 80053; 80307; 87040; 87491; 87591; 87798; 96372; 99285; 80201; 80320; 80329; 81003; 81015; 82542; 84443; 84703; 85025; 86592; 86618; 87086; J1200; J2060; J2250

== ENCOUNTER 2023-04-10 09:13 | Outpatient (CLI) | payer MEDICARE, SELFPAY ==
[2023-04-10 08:58] LABS: Abs Immature Grans 0.08 10^3/uL (0.0-0.06); Absolute Lymphocyte Count 2.24 10^3/uL (1.2-3.4); Absolute Monocyte Count 0.56 10^3/uL (0.1-0.8); Absolute Neutrophil Count 5.45 10^3/uL (1.2-6.7); HCT 37.6 % (36.0-46.0); Immature Grans % 0.8; Lymphocytes % 22.3; MCHC 31.9 % (32.0-36.0); MCV 88 fL (80-95); MPV 9.1 fL (8.0-11.0); Monocytes % 5.6; Neutrophils % 54.3; Platelet Count 304 10^3/uL (130-400); RBC 4.29 10^6/uL (3.93-5.22); RDW 14.7 % (11.7-14.6); RDW-SD 47.2 fL; WBC 10.03 10^3/uL (4.4-10.8)
[2023-04-10 10:09] LABS: ALT 44 U/L (14-59); AST 20 U/L (15-37); Albumin 3.4 g/dL (3.4-5.0); Alkaline Phosphatase 96 U/L (46-116); Anion Gap 10.7 mmol/L (3-11); BUN 18 mg/dL (7-18); Bilirubin, Total 0.2 mg/dL (0.2-1.0); CO2 26.3 mmol/L (21.0-32.0); CREATININE 1.1 mg/dL (0.55-1.02); Calcium 9.9 mg/dL (8.5-10.1); Chloride 102 mmol/L (98-107); Estimated GFR 63.94 (mL/min/1.73m2); Glucose 157 mg/dL (74-106); NT-proBNP 111 pg/mL (<300); Potassium 3.8 mmol/L (3.5-5.1); Sodium 139 mmol/L (136-145); TSH (W/Ref FT4) 7.05 uIU/mL (0.36-3.74); Total Protein 6.8 g/dL (6.4-8.2)
[2023-04-10 10:25] LABS: FREE T4 0.82 ng/dL (0.76-1.46)
[2023-04-10 11:08] LABS: Hemoglobin A1C 6.7 % (<5.7)
== END 2023-04-10 09:14 | disposition home or self-care (01) ==
LOC: LBO 09:13
PROVIDERS: PCP Nurse Practitioner Family; Visit Provider Nurse Practitioner Family
DX: E66.01 Morbid (severe) obesity due to excess calories (principal); J44.9 Chronic obstructive pulmonary disease, unspecified; L02.91 Cutaneous abscess, unspecified; L29.8 Other pruritus; R60.0 Localized edema; R73.09 Other abnormal glucose; R06.02 Shortness of breath
CPT/HCPCS: 36415; 80053; 83036; 83880; 84439; 84443; 85025

== ENCOUNTER 2023-04-18 09:32 | Emergency (ER) | payer MEDICARE, SELFPAY ==
[2023-04-18] VITALS (7 sets, daily range): BP systolic 114–196; BP diastolic 54–101; PULSE 82–100; RESP 12–16; TEMP 36.4; O2SAT 94–100
--- NOTE | 2023-04-18 09:52 | NUR.NOTE ---
code reinaldo called at 0950 patient verbally agressive toward staff Nursing Note:
--- NOTE | 2023-04-18 09:53 | NUR.NOTE ---
Nursing Note: Pt declined to have blood work performed by RN at 0850 hrs
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
[2023-04-18] MEDS: LORazepam 2 MG/ML VIAL IM (10:48)
[2023-04-18] MEDS: OLANZapine 10 MG VIAL IM ×2 (10:48→17:00)
[2023-04-18] MEDS: diphenhydrAMINE 50 MG/ML VIAL 25 MG IM (10:48)
[2023-04-18 11:40] LABS: Bilirubin Negative (Negative); Blood Negative (Negative); Clarity Clear (Clear); Glucose Negative (Negative); Ketones Negative (Negative); Leukocyte Esterase Small (Negative); Nitrite Negative (Negative); Urobilinogen 0.2 mg/dL (Up to 0.2)
[2023-04-18 11:47] LABS: *AMPHETAMINES SCREEN URINE Negative (Negative); *BARBITURATES SCREEN URINE Negative (Negative); *BENZODIAZEPINES SCREEN URINE Negative (Negative); Cannabinoids THC Negative (Negative); Cocaine Screen,Urine Negative (Negative); METHADONE URINE SCREEN Negative (Negative); OPIATES URINE SCREEN Negative (Negative)
[2023-04-18 11:53] LABS: Tricyclic Antidepressants Negative (Negative)
[2023-04-18 12:10] LABS: RBC 0-2 HPF (0-2)
[2023-04-18 12:11] LABS: Bacteria Many HPF (Negative); Crystals Negative HPF (Negative); Epithelial Cells Few HPF (Negative); Mucus Negative (Negative); Other Cells Few Renal (Negative)
[2023-04-18 12:12] LABS: C & S Indicated? Yes; Casts Negative LPF (Negative)
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
[2023-04-18 13:24] LABS: Abs Immature Grans 0.05 10^3/uL (0.0-0.06); Absolute Basophil Count 0.08 10^3/uL (0.0-0.2); Absolute Eosinophil Count 0.74 10^3/uL (0.0-0.7); Absolute Lymphocyte Count 2.09 10^3/uL (1.2-3.4); Absolute Monocyte Count 0.69 10^3/uL (0.1-0.8); Absolute Neutrophil Count 6.46 10^3/uL (1.2-6.7); Basophils % 0.8; Eosinophils % 7.3; HCT 42.2 % (36.0-46.0); Immature Grans % 0.5; Lymphocytes % 20.7; MCH 27.9 pg (27.0-33.0); MCHC 30.8 % (32.0-36.0); MCV 91 fL (80-95); MPV 9.5 fL (8.0-11.0); Monocytes % 6.8; Neutrophils % 63.9; Platelet Count 333 10^3/uL (130-400); RBC 4.66 10^6/uL (3.93-5.22); RDW 15.5 % (11.7-14.6); RDW-SD 50.4 fL; WBC 10.11 10^3/uL (4.4-10.8)
[2023-04-18] MEDS: Fosfomycin Tromethamine 3 GM PACKET PO (13:25)
[2023-04-18 13:48] LABS: ALT 47 U/L (14-59); AST 18 U/L (15-37); Albumin 3.5 g/dL (3.4-5.0); Alkaline Phosphatase 93 U/L (46-116); Anion Gap 12.4 mmol/L (3-11); BUN 12 mg/dL (7-18); Bilirubin, Total 0.3 mg/dL (0.2-1.0); CO2 25.6 mmol/L (21.0-32.0); Calcium 8.9 mg/dL (8.5-10.1); Chloride 103 mmol/L (98-107); ETHANOL BLOOD < 3.0 mg/dL (<10); Estimated GFR 71.69 (mL/min/1.73m2); Glucose 113 mg/dL (74-106); Potassium 3.9 mmol/L (3.5-5.1); Sodium 141 mmol/L (136-145); TSH (W/Ref FT4) 6.14 uIU/mL (0.36-3.74); Total Protein 7.2 g/dL (6.4-8.2)
[2023-04-18 13:52] LABS: Salicylate < 2.8 mg/dL (<2.8)
[2023-04-18 13:53] LABS: Acetaminophen < 2 ug/mL (10-30)
[2023-04-18] MEDS: Furosemide 20 MG TAB PO (16:09)
[2023-04-18] MEDS: Nicotine 21 MG/24 HR PATCH TD (16:32)
--- NOTE | 2023-04-18 17:13 | ED.PROG_ITS ---
Date of service: 04/18/23 Time of Service: 17:14 Medical Decision Making Patient punching things in zone B, threatening to urinate on floor; requiring medication both olanzapine and Ativan for her safety and the safety of others. 8: 15 provider to provider [facility]. Quality:[facility] Health Related Social Needs: No Data to Display Sign Out Sign Out Data: Sign Out Comment: on EE status for worsening liban, threats of self harm and to harm significant other, awaiting second cert. Was chemically restrained once during shift Last updated by Jatin Phelan MD at 04/18/23 15:57 Sign Out Comment: EE, second cert complete; liban Last updated by Con Giles MD at 04/18/23 22:12 Sign Out Comment: Slightly manic, first and second certification completed for EEG. Patient did hit her nose on the wall during the evening, minimal bleeding which resolved on its own. No significant tenderness. No evidence of major fracture. No additional intervention given. Last updated by Sam Dow DO at 04/19/23 05:13 Discharge Plan Disposition Patient Disposition: Psychiatric Hospital/Unit Specific Psychiatric Facility: [facility] Condition: Stable Discharge Details Chief Complaint: Anxiety Clinical Impression: Liban Primary Care Provider: Britt Cole ED Provider: Con Giles Home Meds and New Rx's Prescriptions: No Action (DME) BreatheRite MDI Spacer Spacer See Rx Instructions .ROUTE .MEDSUPPLY Qty: 1 0RF Rx Instructions: As directed haloperidol 10 mg tablet 2 mg PO QHS Patient Comments: TAKE 1 TABLET BY MOUTH AT BEDTIME topiramate [Topamax] 100 mg tablet 100 mg PO BID Qty: 180 1RF Rybelsus 3 mg tablet 3 mg PO DAILY Qty: 30 1RF furosemide 20 mg tablet 20 mg PO QAM Qty: 90 0RF ziprasidone HCl [Geodon] 60 MG capsule 60 mg PO BID Patient Comments: fluticasone furoate-vilanterol [Breo Ellipta] 100-25 mcg/dose blister with device 1 inh inhalation DAILY Qty: 60 3RF metformin 500 mg tablet extended release 24 hr 500 mg PO TID Qty: 270 3RF ipratropium-albuterol 0.5 mg-3 mg(2.5 mg base)/3 mL solution for nebulization 3 ml inhalation QID PRN PRN (Reason: wheezing and shortness of breath) albuterol sulfate [ProAir HFA] 90 mcg/actuation HFA aerosol inhaler 2 puff Inhalation Q4H PRN PRN (Reason: wheezing and SOB)
[2023-04-18] MEDS: LORazepam 2 MG/ML VIAL 1 MG IM (17:44)
--- NOTE | 2023-04-18 19:06 | CMSP_ITS ---
Date of service: 04/18/23 Time of Service: 19:07 Care Management Safety Plan Status Status: Involuntary Reason for Wait Reason for Wait: Inpatient Admission Safety Plan Safety Plan: Sirena arrived at [facility] after she was notified of a warrant for her to have an emergency evaluation. She reported to nursing that she was here for a cough; once she was told that she is here for an EE she eloped, and was brought back in by police. She was evaluated by [facility], who continued with the EE process. She met with the state psychiatrist, who upheld the EE. Per report, she has made suicidal gestures and threatened to shoot her . She was chemically restrained in the ED due to agitation, after which she was more cooperative, and was placed in Zone B. Per [facility], referrals were sent to all hospitals, and [facility] has expressed interest, possibly for tomorrow. CM will continue to follow. INVOLUNTARY FOR INPATIENT PSYCHIATRIC STABILIZATION.? Patient is appropriate in all interactions since arriving at [facility]; Pt has demonstrated appropriate coping and communication skills, has articulated his or her needs and concerns and is fully engaged during staff interactions. Safety plan has been established with patient, and care team, to adhere to patient goals, identify restrictions based on behavioral status, address nutrition, and determine allowed personal belongings, tools for hygiene and personal care. Determine level of activity including ambulation, level of supervision, visitors, and determine privileges based on behaviors and level of engagement by pt. SAFETY PLAN: 1. Will remain on suicide precautions, in paper clothes 2. Will remain in Zone B under direct supervision of one-on-one staff at all times provided by [employer]; MALLIKA, FARM OPERATIONS MANAGER senior technologist. 3. May have paper cups, plates, finger foods as well as a cardboard spoon with which to eat meals. 4. Follow [facility] Management of the Admitted Behavioral Health Patient policy. 5. Shower available in Zone B without restriction. 6. Personal belongings-soft items permitted at RN discretion. 7. Visitors-none at this time. 8. Activities: soft cart items approved per RN discretion. 9.? Bathroom available in Zone B without restriction. 10. Phone: limited to legal sales representative girls' apparel via [facility] cordless phone at RN discretion. Due to INVOLUNTARY status, patient is being held at [facility] by the Department of Mental Health (DM) until 2nd certification by [facility] Psychiatrist can be performed (within 24 hours). Staff will provide de-escalation support (CPI) as needed. If patient wishes to leave [facility], staff will contact [facility] Crisis Screener ([phone]) and Flight Engineer ([phone]) as soon as possible. In the event of elopement, notify [facility] Police ([phone]). Patient is currently involuntarily at [facility]. [facility] Frontline Operator [employer] will continue seeking placement. Please contact the Flight Engineer for any needed changes to Safety Plan. Safety plan has been provided to interdepartmental care team. Patient will be transported by [facility] at time of discharge.
[2023-04-18] MEDS: Haloperidol 1 MG TAB 2 MG PO (21:54)
[2023-04-18] MEDS: Topiramate 100 MG TAB PO (21:55)
[2023-04-18] MEDS: metFORMIN C.R. 500 MG TABCR PO (21:55)
[2023-04-18] MEDS: Ziprasidone 20 MG CAP 60 MG PO (21:56)
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
--- NOTE | 2023-04-19 02:00 | NUR.NOTE ---
0130 - This RN called to sanchez after patient reportedly was sleep walking and ran into a wall in the community room and bumped her nose. Pt upset and requesting XR to see if she broke her nose. MD examined pt at that time. No bleeding noted after physical exam. Nose was tender but pt tolerated exam. At this time MD did not feel that an XR was necessary. Pt was redirected back to her room and into bed where pt fell asleep. 1:1 maintained for pt/staff safety.
[2023-04-19 07:22] VITALS: BP 128/84; PULSE 94; RESP 16; TEMP 36.5; O2SAT 99
[2023-04-19] MEDS: Ziprasidone 20 MG CAP 60 MG PO (09:06)
[2023-04-19] MEDS: Nicotine 21 MG/24 HR PATCH (09:06)
[2023-04-19] MEDS: Nicotine 4 MG GUM (09:06)
[2023-04-19] MEDS: Psyllium PKT 1 EACH PO (09:06)
[2023-04-19] MEDS: Ziprasidone 20 MG VIAL 10 MG IM (12:45)
[2023-04-19 13:25] VITALS: BP 128/84; PULSE 94; RESP 16; TEMP 36.5; O2SAT 99
--- NOTE | 2023-04-19 15:39 | PDOC.CMPRO ---
Date of service: 04/19/23 Time of Service: 15:39 Care Management Progress Note Progress Note Text Progress Note Text: barby was transferred to [facility] by [facility] this morning. SDOH(Care Management) Screening Will the Patient Participate in the Screening?: Unable to obtain
--- NOTE | 2023-04-20 08:52 | NUR.NOTE ---
Accessed Pt chart to see if Pt was prescribed antibiotics upon discharge. Dr Dow read the specimen document.
== END 2023-04-19 11:52 ==
PROVIDERS: Emergency Medicine; Emergency Provider Emergency Medicine; PCP Nurse Practitioner Family
DX: R50.9 Fever, unspecified (principal); R11.10 Vomiting, unspecified; F31.9 Bipolar disorder, unspecified; F41.9 Anxiety disorder, unspecified; J44.9 Chronic obstructive pulmonary disease, unspecified; E11.9 Type 2 diabetes mellitus without complications; F17.210 Nicotine dependence, cigarettes, uncomplicated
CPT/HCPCS: 00123; 80053; 80307; 96372; 99285; 80320; 80329; 81003; 81015; 84439; 84443; 85025; 87086; J1200; J2060; J2359; J3486; J3490

== ENCOUNTER 2023-06-25 07:59 | Emergency (ER) | payer MEDICARE, SELFPAY ==
[2023-06-25 08:11] VITALS: BP 143/110; PULSE 104; RESP 18; O2SAT 98
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
[2023-06-25 09:11] LABS: *AMPHETAMINES SCREEN URINE Negative (Negative); *BARBITURATES SCREEN URINE Negative (Negative); *BENZODIAZEPINES SCREEN URINE Negative (Negative); Cannabinoids THC Negative (Negative); Cocaine Screen,Urine Negative (Negative); METHADONE URINE SCREEN Negative (Negative); OPIATES URINE SCREEN Negative (Negative); Tricyclic Antidepressants Negative (Negative)
[2023-06-25] MEDS: LORazepam 1 MG TAB 2 MG PO (09:27)
[2023-06-25] MEDS: risperiDONE 1 MG TAB PO (09:27)
--- NOTE | 2023-06-25 09:54 | NUR.NOTE ---
Attempted to go over medications with patient and she became agitated and stated that she was tired of having to repeat herself (yelling loudly).
[2023-06-25] MEDS: Nicotine 2 MG LOZG SUC (10:21)
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
--- NOTE | 2023-06-25 14:04 | CMSP_ITS ---
Date of service: 06/25/23 Care Management Safety Plan Status Status: Involuntary Reason for Wait Reason for Wait: Inpatient Admission Safety Plan Safety Plan: INVOLUNTARY FOR INPATIENT PSYCHIATRIC STABILIZATION.? huddled with staff regarding Ritu plan of care. First EE has been completed. CM contacted [facility], to inform of status. [facility] is coordinating services. CM will continue to follow. Safety plan has been established with patient, and care team, to adhere to patient goals, identify restrictions based on behavioral status, address nu trition, and determine allowed personal belongings, tools for hygiene and personal care. Determine level of activity including ambulation, level of supervision, visitors, and determine privileges based on behaviors and level of engagement by pt. SAFETY PLAN: 1. Will remain on suicide precautions, in paper clothes 2. Will remain in Zone B under direct supervision of one-on-one staff at all times provided by [employer]; MALLIKA, REMOTE SENSING SPECIALIST mixed crop and livestock farm worker. 3. May have paper cups, plates, finger foods as well as a cardboard spoon with which to eat meals. 4. Follow [facility] Management of the Admitted Behavioral Health Patient policy. 5. Shower available in Zone B without restriction. 6. Personal belongings-soft items permitted at RN discretion. 7. Visitors-none at this time. 8. Activities: soft cart items approved per RN discretion. 9.? Bathroom available in Zone B without restriction. 10. Phone: limited to [facility] cordless phone at RN discretion. Due to INVOLUNTARY status, patient is being held at [facility] by the Department of Mental Health ([facility]) until 2nd certification by [facility] Psychiatrist can be performed (within 24 hours). Staff will provide de-escalation support (CPI) as needed. If patient wishes to leave [facility], staff will contact [facility] Crisis Screener ([phone]) and Splitting Machine Operator ([phone]) as soon as possible. In the event of elopement, notify [place] [employer] ([phone]). Patient is currently involuntarily at [facility]. [facility] Frontline Drywall Carrier will continue seeking placement. Please contact the Splitting Machine Operator for any needed changes to Safety Plan. Safety plan has been provided to interdepartmental care team. Patient will be transported by [facility] at time of discharge.
--- NOTE | 2023-06-25 14:04 | PDOC.CMSAFE ---
Date of service: 06/25/23 Care Management Safety Plan Status Status: Involuntary Reason for Wait Reason for Wait: Inpatient Admission Safety Plan Safety Plan: INVOLUNTARY FOR INPATIENT PSYCHIATRIC STABILIZATION.? huddled with staff regarding Ritu plan of care. First EE has been completed. CM contacted [facility], to inform of status. [facility] is coordinating services. CM will continue to follow. Safety plan has been established with patient, and care team, to adhere to patient goals, identify restrictions based on behavioral status, address nutrition, and determine allowed personal belongings, tools for hygiene and personal care. Determine level of activity including ambulation, level of supervision, visitors, and determine privileges based on behaviors and level of engagement by pt. SAFETY PLAN: 1. Will remain on suicide precautions, in paper clothes 2. Will remain in Zone B under direct supervision of one-on-one staff at all times provided by [employer]; MALLIKA, GUARD MANAGER pool table operator. 3. May have paper cups, plates, finger foods as well as a cardboard spoon with which to eat meals. 4. Follow [facility] Management of the Admitted Behavioral Health Patient policy. 5. Shower available in Zone B without restriction. 6. Personal belongings-soft items permitted at RN discretion. 7. Visitors-none at this time. 8. Activities: soft cart items approved per RN discretion. 9.? Bathroom available in Zone B without restriction. 10. Phone: limited to [facility] cordless phone at RN discretion. Due to INVOLUNTARY status, patient is being held at [facility] by the Department of Mental Health ([facility]) until 2nd certification by [facility] Psychiatrist can be performed (within 24 hours). Staff will provide de-escalation support (CPI) as needed. If patient wishes to leave [facility], staff will contact [facility] Crisis Screener ([phone]) and Clothing Room Supervisor ([phone]) as soon as possible. In the event of elopement, notify [place] [employer] ([phone]). Patient is currently involuntarily at [facility]. [facility] Frontline Household Appliances Service Technician will continue seeking placement. Please contact the Clothing Room Supervisor for any needed changes to Safety Plan. Safety plan has been provided to interdepartmental care team. Patient will be transported by [facility]. at time of discharge.
--- NOTE | 2023-06-25 14:17 | CMPROGNOTE_ITS ---
Date of service: 06/25/23 Care Management Progress Note Progress Note Text Progress Note Text: CM huddled with staff regarding Katies plan of care. First EE has been completed. CM contacted [facility], to inform of status. [facility] is coordinating services. CM will continue to follow. SDOH(Care Management) Screening Will the Patient Participate in the Screening?: Unable to obtain
--- NOTE | 2023-06-25 17:59 | W.EDPROG ---
Date of service: 06/25/23 Time of Service: 17:59 Medical Decision Making This dictation utilizes [id number] dictation software and may contain unedited grammatical errors. Patient seen in sign-out from Kendra Reyes NP - please see her complete note. Essentially, this 42 y/o F presents to ED today with a chief complaint of brought in by PD, had a warrant for her arrest- threatened Leticia from [facility]'s life if brought to longterm. Has manic behaviors, labile mood, has history of being aggressive with staff. Patient was agreeable to Risperdal and Ativan while in ED. Pending 2nd certification for EE at time of sign-out - expected between [id number]. Patients' medical history: Bipolar disorder anxiety, morbid obesity, GERD, substance abuse disorder. Pertinent exam findings / vital signs include nontoxic vitals, patient has highly labile mood, is cooperative for short periods and then uncooperative, multiple attempts at leaving the. Differential / pathologies of concern include bipolar disorder, psychosis. Diagnostic studies of: -UDS, ordered by prior provider-have not ordered blood work due to patient's highly labile mood and history of aggression at this time but patient has been intermittently open to getting blood work done if any facility needs studies done. Interventions of: -Home medicines ordered as needed Ativan. ED Course/Assessment/Plan: Patient was taken over with pending second CERT for EE status, around 1755 the patient had figured out about and next to one of the doors in zone B could be held down and I would unlock the door, she did walk out of the department but was quickly brought back to zone B without issue, security is standing by. Patient signed out to oncoming provider Dr. Stone at shift-change, EE completed 2nd cert by psychiatrist complete. Disposition of Bipolar Disorder with Psychosis. Patient verbalized understanding of the plan and return to ED criteria and engaged in shared decision making. Medical Records Medical records reviewed: Yes I reviewed the patient's medical records. Lab Data Lab results reviewed: Yes I reviewed the patient's lab results. Labs: Laboratory Tests Range/Units 06/25/23 06/25/23 08:18 08:19 WBC Cancelled RBC Cancelled Hgb Cancelled Hct Cancelled MCV Cancelled MCH Cancelled MCHC Cancelled RDW Cancelled Plt Count Cancelled MPV Cancelled Immature Gran % Cancelled Neutrophils % Cancelled Band Neutrophils % Cancelled Lymphocytes % Cancelled Atypical Lymphs % Cancelled Monocytes % Cancelled Eosinophils % Cancelled Basophils % Cancelled Metamyelocytes % Cancelled Myelocytes % Cancelled Promyelocytes % Cancelled Other Cells % Cancelled Nucleated RBC % Cancelled Absolute Neutrophils Cancelled Absolute Lymphocytes Cancelled Absolute Monocytes Cancelled Absolute Eosinophils Cancelled Absolute Basophils Cancelled RBC Morphology Cancelled Polychromasia Cancelled Hypochromasia Cancelled Poikilocytosis Cancelled Basophilic Stippling Cancelled Anisocytosis Cancelled Microcytosis Cancelled Macrocytosis Cancelled Spherocytes Cancelled Tear Drop Cells Cancelled Ovalocytes Cancelled Stomatocytes Cancelled [place] Bodies Cancelled [place] Cells/Echinocytes Cancelled Acanthocytes (Spur) Cancelled Schistocytes Cancelled Sodium Cancelled Potassium Cancelled Chloride Cancelled Carbon Dioxide Cancelled Anion Gap Cancelled BUN Cancelled Creatinine Cancelled Est GFR (CKD-EPI 2020) Cancelled Glucose Cancelled Calcium Cancelled Total Bilirubin Cancelled AST Cancelled ALT Cancelled Alkaline Phosphatase Cancelled Total Protein Cancelled Albumin Cancelled TSH Cancelled Salicylates Cancelled Urine Opiates Screen (Negative) Negative Urine Methadone Screen (Negative) Negative Acetaminophen Cancelled Ur Barbiturates Screen (Negative) Negative Ur Tricyclics Screen (Negative) Negative Ur Amphetamines Screen (Negative) Negative U Benzodiazepines Scrn (Negative) Negative Urine Cocaine Screen (Negative) Negative Ur THC Screen (Negative) Negative Ethyl Alcohol Cancelled Quality:SDOH Health Related Social Needs: No Data to Display Sign Out Sign Out Data: Sign Out Comment: Brigitte is a 42-year-old female with history of bipolar disorder who presents to the emergency department today for liban with acute psychosis, has made suicidal and Homicidal statements over the past couple days. Unclear if she has been taking medications as prescribed. She was brought in by [facility] for . Medically cleared by SMART clearance. She awaiting second cert by [facility] between 5 and 6 PM. She did take PO risperdal and ativan without difficulty this morning (she requested these specifically). Able to be verbally redirected by staff, though she does have a h/o aggressive behavior requiring restraints in the past. Last updated by Kendra Bedolla at 06/25/23 15:31 Sign Out Comment: Patient has made multiple escape attempts from Zone B, 2nd cert was completed by [facility] [place]- patient is EE'd. Placement pending. Home medicines ordered, PRN ativan ordered. Patient has highly labile mood, was open to blood draws for placement but changed mind within seconds. Last updated by Sam Sky PA at 06/25/23 22:05 Discharge Plan Discharge Details Chief Complaint: PsychEval Primary Care Provider: Britt Cole ED Provider: Latisha Stone Home Meds and New Rx's Prescriptions: No Action (DME) BreatheRite MDI Spacer Spacer See Rx Instructions .ROUTE .MEDSUPPLY Qty: 1 0RF Rx Instructions: As directed haloperidol 10 mg tablet 2 mg PO QHS Patient Comments: TAKE 1 TABLET BY MOUTH AT BEDTIME topiramate [Topamax] 100 mg tablet 100 mg PO BID Qty: 180 1RF Rybelsus 3 mg tablet 3 mg PO DAILY Qty: 30 1RF furosemide 20 mg tablet 20 mg PO QAM Qty: 90 0RF ziprasidone HCl [Geodon] 60 MG capsule 60 mg PO BID Patient Comments: fluticasone furoate-vilanterol [Breo Ellipta] 100-25 mcg/dose blister with device 1 inh inhalation DAILY Qty: 60 3RF metformin 500 mg tablet extended release 24 hr 500 mg PO TID Qty: 270 3RF lamotrigine 150 mg tablet 150 mg PO DAILY Patient Comments: TAKE ONE TABLET BY MOUTH EVERY DAY risperidone 2 mg tablet,disintegrating 2 mg PO DAILY Patient Comments: PLACE ONE TABLET IN THE MOUTH AND ALLOW TO DISSOLVE EVERY DAY risperidone 4 mg tablet,disintegrating 4 mg PO QHS Patient Comments: PLACE ONE TABLET IN THE MOUTH AND ALLOW TO DISSOLVE AT BEDTIME lorazepam 1 mg tablet 1 mg PO DAILY Patient Comments: TAKE ONE TABLET BY MOUTH EVERY DAY ipratropium-albuterol 0.5 mg-3 mg(2.5 mg base)/3 mL solution for nebulization 3 ml inhalation QID PRN PRN (Reason: wheezing and shortness of breath) albuterol sulfate [ProAir HFA] 90 mcg/actuation HFA aerosol inhaler 2 puff Inhalation Q4H PRN PRN (Reason: wheezing and SOB)
--- NOTE | 2023-06-25 18:12 | NUR.NOTE ---
Patient pressed the exit button for 6 seconds and eloped into parking lot at 1753. Security immediately called and were able to convince patient to re enter the building. Patient is now sitting in common area calmly talking with natural resource technician that she knows.
[2023-06-25] MEDS: Topiramate 100 MG TAB PO (19:44)
[2023-06-25] MEDS: ZIPRASIDONE 60 MG PO (19:45)
[2023-06-25] MEDS: LORazepam 1 MG TAB PO ×2 (20:00→23:37)
--- NOTE | 2023-06-25 23:09 | ED.PROG_ITS ---
Date of service: 06/25/23 Time of Service: 10:00 Medical Decision Making This patient was signed out to me. Please see previous notes for H&P and initial eval. In brief, 42yo F with hx schizophrenia presenting with liban, homicidal statements. Medically cleared, home meds in. EEd, 2nd cert done. Pending placement. Overnight no acute behavioral events. Signed out to oncoming physician, plan remains as above. Quality:SDOH Health Related Social Needs: No Data to Display Sign Out Sign Out Data: Sign Out Comment: Brigitte is a 42-year-old female with history of bipolar disorder who presents to the emergency department today for liban with acute psychosis, has made suicidal and Homicidal statements over the past couple days. Unclear if she has been taking medications as prescribed. She was brought in by [facility] for EE. Medically cleared by SMART clearance. [facility] She did take PO risperdal and ativan without difficulty this morning (she requested these specifically). Able to be verbally redirected by staff, though she does have a h/o aggressive behavior requiring restraints in the past. Last updated by Kendra Bedolla at 06/25/23 15:31 Sign Out Comment: Patient has made multiple escape attempts from Zone B, 2nd cert was completed by [facility]- patient is EE'd. Placement pending. Home medicines ordered, PRN ativan ordered. Patient has highly labile mood, was open to blood draws for placement but changed mind within seconds. Last updated by Sam Sky PA at 06/25/23 22:05 Discharge Plan Discharge Details Chief Complaint: PsychEval Primary Care Provider: Britt Cole ED Provider: Latisha Stone Home Meds and New Rx's Prescriptions: No Action (DME) BreatheRite MDI Spacer Spacer See Rx Instructions .ROUTE .MEDSUPPLY Qty: 1 0RF Rx Instructions: As directed haloperidol 10 mg tablet 2 mg PO QHS Patient Comments: TAKE 1 TABLET BY MOUTH AT BEDTIME topiramate [Topamax] 100 mg tablet 100 mg PO BID Qty: 180 1RF Rybelsus 3 mg tablet 3 mg PO DAILY Qty: 30 1RF furosemide 20 mg tablet 20 mg PO QAM Qty: 90 0RF ziprasidone HCl [Geodon] 60 MG capsule 60 mg PO BID Patient Comments: fluticasone furoate-vilanterol [Breo Ellipta] 100-25 mcg/dose blister with device 1 inh inhalation DAILY Qty: 60 3RF metformin 500 mg tablet extended release 24 hr 500 mg PO TID Qty: 270 3RF lamotrigine 150 mg tablet 150 mg PO DAILY Patient Comments: TAKE ONE TABLET BY MOUTH EVERY DAY risperidone 2 mg tablet,disintegrating 2 mg PO DAILY Patient Comments: PLACE ONE TABLET IN THE MOUTH AND ALLOW TO DISSOLVE EVERY DAY risperidone 4 mg tablet,disintegrating 4 mg PO QHS Patient Comments: PLACE ONE TABLET IN THE MOUTH AND ALLOW TO DISSOLVE AT BEDTIME lorazepam 1 mg tablet 1 mg PO DAILY Patient Comments: TAKE ONE TABLET BY MOUTH EVERY DAY ipratropium-albuterol 0.5 mg-3 mg(2.5 mg base)/3 mL solution for nebulization 3 ml inhalation QID PRN PRN (Reason: wheezing and shortness of breath) albuterol sulfate [ProAir HFA] 90 mcg/actuation HFA aerosol inhaler 2 puff Inhalation Q4H PRN PRN (Reason: wheezing and SOB)
[2023-06-26 07:29] VITALS: BP 144/85; PULSE 99; RESP 16; TEMP 36.5; O2SAT 99
--- NOTE | 2023-06-26 07:32 | NUR.NOTE ---
Nick from the state of [place] called for update on patient behavior Nursing Note:
[2023-06-26] MEDS: Topiramate 100 MG TAB PO ×2 (08:30→19:39)
[2023-06-26] MEDS: lamoTRIgine 100 MG TAB 150 MG PO (08:30)
[2023-06-26] MEDS: Furosemide 20 MG TAB PO (08:30)
[2023-06-26] MEDS: Budesonide/Formoterol 80/4.5 6.9 GM 60 PUFF INH IH (08:30)
[2023-06-26] MEDS: metFORMIN C.R. 500 MG TABCR PO ×2 (08:30→16:53)
[2023-06-26] MEDS: ZIPRASIDONE 60 MG PO ×2 (08:37→19:39)
[2023-06-26] MEDS: Nicotine 4 MG LOZG SUC ×4 (08:40→19:39)
--- NOTE | 2023-06-26 08:44 | NUR.NOTE ---
spoke with patient regarding own medication (Semaglutide). she states her and/or mother would be able to bring it to [facility]. did not answer. called her mother who states she could bring the medication later in the day today. Nursing Note:
--- NOTE | 2023-06-26 09:55 | PDOC.CMSAFE ---
Date of service: 06/26/23 Time of Service: 09:55 Care Management Safety Plan Status Status: Involuntary Reason for Wait Reason for Wait: Inpatient Admission Safety Plan Safety Plan: Care Management Safety Plan PATIENT NAME: Sirena Tarango UNIT #: [id number] ADMITTING PROVIDER: PRIMARY CARE PROVIDER: AUGUSTO DAVIDSON NP DATE OF ADMIT: 06/25/23 : 1980 Date of service: 06/25/23 Care Management Safety Plan Status Status: Involuntary Reason for Wait Reason for Wait: Inpatient Admission Safety Plan Safety Plan: INVOLUNTARY FOR INPATIENT PSYCHIATRIC STABILIZATION.? Huddled with staff regarding Sirena's plan of care. Second cert was completed and upheld. Safety plan has been established with patient, and care team, to adhere to patient goals, identify restrictions based on behavioral status, address nutrition, and determine allowed personal belongings, tools for hygiene and personal care. Determine level of activity including ambulation, level of supervision, visitors, and determine privileges based on behaviors and level of engagement by pt. SAFETY PLAN: 1. Will remain on suicide precautions, in paper clothes 2. Will remain in Zone B under direct supervision of one-on-one staff at all times provided by [employer]; BREAD AND PASTRY BAKER, DRESS CUTTER catalytic case operator. 3. May have paper cups, plates, finger foods as well as a cardboard spoon with which to eat meals. 4. Follow [facility] Management of the Admitted Behavioral Health Patient policy. 5. Shower available in Zone B without restriction. 6. Personal belongings-soft items permitted at RN discretion. 7. Visitors-none at this time. 8. Activities: soft cart items approved per RN discretion. 9.? Bathroom available in Zone B without restriction. 10. Phone: limited to [facility] cordless phone at RN discretion. Due to INVOLUNTARY status, patient is being held at [facility] by the Department of Mental Health ([facility]) until 2nd certification by [facility] Psychiatrist can be performed (within 24 hours). Staff will provide de-escalation support (CPI) as needed. If patient wishes to leave [facility], staff will contact [facility] Crisis Screener ([phone]) and Blanket Cutter Hand ([phone]) as soon as possible. In the event of elopement, notify [facility] Police ([phone]). Patient is currently involuntarily at [facility]. [facility] Frontline Foamite Mixer will continue seeking placement. Please contact the Blanket Cutter Hand for any needed changes to Safety Plan. Safety plan has been provided to interdepartmental care team. Patient will be transported by practical nurse clinical coordinator at time of discharge.
--- NOTE | 2023-06-26 10:00 | CMSP_ITS ---
Date of service: 06/26/23 Time of Service: 10:00 Care Management Safety Plan Status Status: Involuntary Safety Plan Safety Plan: INVOLUNTARY FOR INPATIENT PSYCHIATRIC STABILIZATION.? Patient is appropriate in all interactions since arriving at [facility]; Pt has demonstrated appropriate coping and communication skills, has articulated his or her needs and concerns and is fully engaged during staff interactions. Safety plan has been established with patient, and care team, to adhere to patient goals, identify restrictions based on behavioral status, address nutrition, and determine allowed personal belongings, tools for hygiene and personal care. Determine level of activity including ambulation, level of supervision, visitors, and determine privileges based on behaviors and level of engagement by pt. SAFETY PLAN: 1. Will remain on suicide precautions, in paper clothes 2. Will remain in Zone B under direct supervision of one-on-one staff at all times provided by [employer]; MALLIKA, SILVER MINER BLASTING wedding coordinator. 3. May have paper cups, plates, finger foods as well as a cardboard spoon with which to eat meals. 4. Follow [facility] Management of the Admitted Behavioral Health Patient policy. 5. Shower available in Zone B without restriction. 6. Personal belongings-soft items permitted at RN discretion. 7. Visitors-none at this time. 8. Activities: soft cart items approved per RN discretion. 9.? Bathroom available in Zone B without restriction. 10. Phone: limited to [facility] cordless phone at RN discretion. Due to INVOLUNTARY status, patient is being held at [facility] by the Department of Mental Health ([facility]) until 2nd certification by [facility] Psychiatrist can be performed (within 24 hours). Staff will provide de-escalation support (CPI) as needed. If patient wishes to leave [facility], staff will contact [facility] Crisis Screener ([phone]) and Cloth Bleaching Range Tender ([phone]) as soon as possible. In the event of elopement, notify [place] State Police ([phone]). Patient is currently involuntarily at [facility]. [facility] Frontline Car Park Attendant will continue seeking placement. Please contact the Cloth Bleaching Range Tender for any needed changes to Safety Plan. Safety plan has been provided to interdepartmental care team. Patient will be transported by [facility] at time of discharge.
--- NOTE | 2023-06-26 10:28 | NUR.NOTE ---
spoke with patient regarding HIPAA form. declining to fill this out. states whoever calls me calls me. states if they don't know her they won't call. Nursing Note:
[2023-06-26 10:34] VITALS: BP 148/82; TEMP 36.7
--- NOTE | 2023-06-26 11:48 | NUR.NOTE ---
patient agreed to take metformin prior to lunch but then spit it out onto the floor then refused additional dose. Nursing Note:
--- NOTE | 2023-06-26 12:59 | ED.PROG_ITS ---
Date of service: 06/26/23 Time of Service: 12:59 Medical Decision Making Patient was signed out to me by my colleague. Please refer to HPI, physical exam, assessment and plan. Patient was stable during my shift here, she did receive some Nicotrol as requested by herself. She is otherwise been stable. Receive echo for better will retreat, and I spoke with nurse practitioner Herlinda, he accepts the patient for transfer. Patient will be transported via [facility]. Discussed red flags for which to return. I have extensively reviewed the treatment plan with the patient. I have addressed all patient concerns at this time. I have also discussed the plan with the admitting physician and they agree with the current assessment and plan and have agreed to assume responsibility for the patient. All parties demonstrate verbal understanding and agreement with our assessment and plan at this time. The documentation in this chart was dictated using Droplr dictation software. Please excuse any dictation errors. Quality:SDOH Health Related Social Needs: No Data to Display Sign Out Sign Out Data: Sign Out Comment: Brigitte is a 42-year-old female with history of bipolar disorder who presents to the emergency department today for liban with acute psychosis, has made suicidal and Homicidal statements over the past couple days. Unclear if she has been taking medications as prescribed. She was brought in by [facility] for EE. Medically cleared by SMART clearance. She awaiting second cert by [facility] between 5 and 6 PM. She did take PO risperdal and ativan without difficulty this morning (she requested these specifically). Able to be verbally redirected by staff, though she does have a h/o aggressive behavior requiring restraints in the past. Last updated by Kendra Bedolla at 06/25/23 15:31 Sign Out Comment: Patient has made multiple escape attempts from Zone B, 2nd cert was completed by [facility]- patient is EE'd. Placement pending. Home medicines ordered, PRN ativan ordered. Patient has highly labile mood, was open to blood draws for placement but changed mind within seconds. Last updated by Sam Sky PA at 06/25/23 22:05 Sign Out Comment: 42yo F with hx bipolar presenting with liban, homicidal statements. Medically cleared, home meds in. EEd, 2nd cert done. Pending placement. Yesterday multiple attempts to elope from zone B. Last updated by Latisha Stone MD at 06/26/23 06:00 Discharge Plan Disposition Patient Disposition: Psychiatric Hospital/Unit Specific Psychiatric Facility: [facility] Discharge Details Chief Complaint: PsychEval Clinical Impression: Psychosis Primary Care Provider: Britt Cole ED Provider: Sam Dow Home Meds and New Rx's Prescriptions: No Action (DME) BreatheRite MDI Spacer Spacer See Rx Instructions .ROUTE .MEDSUPPLY Qty: 1 0RF Rx Instructions: As directed haloperidol 10 mg tablet 2 mg PO QHS Patient Comments: TAKE 1 TABLET BY MOUTH AT BEDTIME topiramate [Topamax] 100 mg tablet 100 mg PO BID Qty: 180 1RF Rybelsus 3 mg tablet 3 mg PO DAILY Qty: 30 1RF furosemide 20 mg tablet 20 mg PO QAM Qty: 90 0RF ziprasidone HCl [Geodon] 60 MG capsule 60 mg PO BID Patient Comments: fluticasone furoate-vilanterol [Breo Ellipta] 100-25 mcg/dose blister with device 1 inh inhalation DAILY Qty: 60 3RF metformin 500 mg tablet extended release 24 hr 500 mg PO TID Qty: 270 3RF lamotrigine 150 mg tablet 150 mg PO DAILY Patient Comments: TAKE ONE TABLET BY MOUTH EVERY DAY risperidone 2 mg tablet,disintegrating 2 mg PO DAILY Patient Comments: PLACE ONE TABLET IN THE MOUTH AND ALLOW TO DISSOLVE EVERY DAY risperidone 4 mg tablet,disintegrating 4 mg PO QHS Patient Comments: PLACE ONE TABLET IN THE MOUTH AND ALLOW TO DISSOLVE AT BEDTIME lorazepam 1 mg tablet 1 mg PO DAILY Patient Comments: TAKE ONE TABLET BY MOUTH EVERY DAY ipratropium-albuterol 0.5 mg-3 mg(2.5 mg base)/3 mL solution for nebulization 3 ml inhalation QID PRN PRN (Reason: wheezing and shortness of breath) albuterol sulfate [ProAir HFA] 90 mcg/actuation HFA aerosol inhaler 2 puff Inhalation Q4H PRN PRN (Reason: wheezing and SOB)
--- NOTE | 2023-06-26 13:24 | PDOC.CMPRO ---
Date of service: 06/26/23 Time of Service: 13:24 Care Management Progress Note Progress Note Text Progress Note Text: Sirena has been accepted for involuntary placement at [facility]. Transportation is being coordinated by [facility]. SDOH(Care Management) Screening Will the Patient Participate in the Screening?: Unable to obtain
[2023-06-26] MEDS: Haloperidol 1 MG TAB 2 MG PO (19:38)
[2023-06-26] MEDS: risperiDONE 1 MG TAB 4 MG PO (19:39)
--- NOTE | 2023-06-27 06:49 | NUR.NOTE ---
Accessed chart for transfer time. [place] Dept of Mental Health; Nick called asking for time of transfer. Nursing Note:
== END 2023-06-26 20:04 ==
PROVIDERS: Nurse Practitioner Family; Emergency Provider Student in an Organized Health Care Education/Training Program; PCP Nurse Practitioner Family
DX: F30.2 Manic episode, severe with psychotic symptoms (principal); E11.9 Type 2 diabetes mellitus without complications; J44.9 Chronic obstructive pulmonary disease, unspecified; R45.851 Suicidal ideations; F17.210 Nicotine dependence, cigarettes, uncomplicated; Z79.84 Long term (current) use of oral hypoglycemic drugs
CPT/HCPCS: 00123; 80053; 80307; 81025; 82962; 99283; 80320; 80329; 84443; 85025

== ENCOUNTER 2023-07-29 05:28 | Outpatient (CLI) | payer MEDICARE, SELFPAY ==
[2023-07-29 12:30] LABS: Abs Immature Grans 0.09 10^3/uL (0.0-0.06); Absolute Basophil Count 0.08 10^3/uL (0.0-0.2); Absolute Eosinophil Count 0.53 10^3/uL (0.0-0.7); Absolute Monocyte Count 0.62 10^3/uL (0.1-0.8); Absolute Neutrophil Count 6.71 10^3/uL (1.2-6.7); Basophils % 0.8 %; Eosinophils % 5.1 %; HCT 40.1 % (36.0-46.0); HGB 12.6 g/dL (11.2-15.7); Immature Grans % 0.9 %; MCH 26.9 pg (27.0-33.0); MCHC 31.4 % (32.0-36.0); MCV 86 fL (80-95); MPV 8.9 fL (8.0-11.0); Monocytes % 5.9 %; Neutrophils % 64.3 %; Platelet Count 330 10^3/uL (130-400); RBC 4.69 10^6/uL (3.93-5.22); RDW 17.3 % (11.7-14.6); RDW-SD 51.8 fL; WBC 10.43 10^3/uL (4.4-10.8)
[2023-07-29 12:44] LABS: Hemoglobin A1C 7.2 % (<5.7)
[2023-07-29 12:53] LABS: ALT 47 U/L (14-59); AST 16 U/L (15-37); Albumin 3.5 g/dL (3.4-5.0); Alkaline Phosphatase 102 U/L (46-116); Anion Gap 8.4 mmol/L (3-11); BUN 19 mg/dL (7-18); Bilirubin, Total 0.3 mg/dL (0.2-1.0); CO2 28.6 mmol/L (21.0-32.0); Calcium 10.8 mg/dL (8.5-10.1); Calculated LDL 77 mg/dL (<100); Chloride 100 mmol/L (98-107); Cholesterol 165 mg/dL (<200); Estimated GFR 71.69 (mL/min/1.73m2); Glucose 134 mg/dL (74-106); HDL Cholesterol 65 mg/dL (40-60); Potassium 4.2 mmol/L (3.5-5.1); Sodium 137 mmol/L (136-145); TSH (W/Ref FT4) 4.37 uIU/mL (0.36-3.74); Triglyceride 115 mg/dL (<150)
[2023-07-29 13:10] LABS: FREE T4 1.13 ng/dL (0.76-1.46)
[2023-07-29 13:39] LABS: TROPONIN-I < 0.5 ug/mL (4.0-12.0)
== END 2023-07-29 05:29 | disposition home or self-care (01) ==
LOC: LOS 05:28
PROVIDERS: PCP Nurse Practitioner Family; Visit Provider Nurse Practitioner Family
DX: E11.9 Type 2 diabetes mellitus without complications (principal); F31.9 Bipolar disorder, unspecified
CPT/HCPCS: 36415; 80053; 80061; 80156; 83036; 84439; 84443; 85025

== ENCOUNTER 2023-08-15 05:11 | Outpatient (CLI) | payer MEDICARE, SELFPAY ==
[2023-08-15 10:54] LABS: Abs Immature Grans 0.14 10^3/uL (0.0-0.06); Absolute Basophil Count 0.07 10^3/uL (0.0-0.2); Absolute Eosinophil Count 0.44 10^3/uL (0.0-0.7); Absolute Monocyte Count 0.67 10^3/uL (0.1-0.8); Absolute Neutrophil Count 6.62 10^3/uL (1.2-6.7); Basophils % 0.7 %; Eosinophils % 4.3 %; HCT 42.5 % (36.0-46.0); Immature Grans % 1.4 %; Lymphocytes % 22.5 %; MCH 27.2 pg (27.0-33.0); MCHC 30.6 % (32.0-36.0); MCV 89 fL (80-95); MPV 9.2 fL (8.0-11.0); Monocytes % 6.5 %; Neutrophils % 64.6 %; Platelet Count 306 10^3/uL (130-400); RBC 4.78 10^6/uL (3.93-5.22); RDW 18.2 % (11.7-14.6); WBC 10.24 10^3/uL (4.4-10.8)
[2023-08-15 11:06] LABS: Hemoglobin A1C 7.3 % (<5.7)
[2023-08-15 11:31] LABS: ALT 45 U/L (14-59); AST 14 U/L (15-37); Albumin 3.3 g/dL (3.4-5.0); Alkaline Phosphatase 98 U/L (46-116); Anion Gap 8.8 mmol/L (3-11); BUN 13 mg/dL (7-18); Bilirubin, Total 0.2 mg/dL (0.2-1.0); CO2 29.2 mmol/L (21.0-32.0); CREATININE 0.9 mg/dL (0.55-1.02); Calcium 9.5 mg/dL (8.5-10.1); Chloride 102 mmol/L (98-107); Cholesterol 174 mg/dL (<200); Estimated GFR 81.35 (mL/min/1.73m2); Glucose 155 mg/dL (74-106); HDL Cholesterol 57 mg/dL (40-60); Potassium 3.8 mmol/L (3.5-5.1); Sodium 140 mmol/L (136-145); TSH (W/Ref FT4) 4.68 uIU/mL (0.36-3.74); Total Protein 6.7 g/dL (6.4-8.2); Triglyceride 434 mg/dL (<150)
[2023-08-15 11:40] LABS: TROPONIN-I < 0.5 ug/mL (4.0-12.0)
[2023-08-15 11:43] LABS: LDL CHOLESTEROL 79 mg/dL (<100)
[2023-08-15 12:02] LABS: FREE T4 0.97 ng/dL (0.76-1.46)
== END 2023-08-15 05:12 | disposition home or self-care (01) ==
LOC: LOS 05:11
PROVIDERS: PCP Nurse Practitioner Family; Visit Provider Nurse Practitioner Family
DX: E11.9 Type 2 diabetes mellitus without complications (principal)
CPT/HCPCS: 36415; 80053; 80061; 83721; 80156; 83036; 84439; 84443; 85025

== ENCOUNTER 2023-08-26 22:21 | Emergency (ER) | payer MEDICARE, SELFPAY ==
[2023-08-26 22:31] VITALS: O2SAT 98
== END 2023-08-26 22:38 ==
PROVIDERS: PCP Nurse Practitioner Family
DX: Z53.21 Procedure and treatment not carried out due to patient leaving prior to being seen by health care provider (principal)

== ENCOUNTER 2023-09-01 22:00 | Emergency (ER) | payer MEDICARE, SELFPAY ==
[2023-09-01 22:07] VITALS: BP 181/81; PULSE 102; RESP 20; TEMP 36.1; O2SAT 98
--- NOTE | 2023-09-01 22:16 | ED.GENADUL_ITS ---
Discharge Plan Discharge Details Chief Complaint: PsychEval Primary Care Provider: Britt Cole ED Provider: Con Giles Home Meds and New Rx's Prescriptions: No Action (DME) BreatheRite MDI Spacer Spacer See Rx Instructions .ROUTE .MEDSUPPLY Qty: 1 0RF Rx Instructions: As directed fluticasone furoate-vilanterol [Breo Ellipta] 100-25 mcg/dose blister with device 1 inh inhalation BID fluticasone propionate [Flonase Allergy Relief] 50 mcg/actuation spray,suspension 2 spray intranasal DAILY Rx Instructions: administer into each nostril lithium carbonate 300 mg capsule 300 mg PO BID Rx Instructions: 300mg in the AM and 600mg PM. -hb temazepam 15 mg capsule 15 mg PO QHS semaglutide 7 mg tablet 7 mg PO DAILY Qty: 30 1RF levothyroxine 50 mcg capsule 50 mcg PO DAILY Qty: 90 3RF lamotrigine 150 mg tablet 150 mg PO DAILY Patient Comments: TAKE ONE TABLET BY MOUTH EVERY DAY lorazepam 1 mg tablet 1 mg PO TID-QID Patient Comments: TAKE ONE TABLET BY MOUTH EVERY DAY risperidone 2 mg tablet,disintegrating 4 mg PO BID Patient Comments: PLACE ONE TABLET IN THE MOUTH AND ALLOW TO DISSOLVE albuterol sulfate [ProAir HFA] 90 mcg/actuation HFA aerosol inhaler 2 puff Inhalation Q4H PRN PRN (Reason: wheezing and SOB) HPI General Date/Time Provider Initiated Documentation: 09/01/23 22:09 . HPI Narrative: 42-year-old female history of bipolar disorder presents brought in by PD under mental health warrant family noted increased dysregulated behavior over the past several days including worsening delusions, visual hallucinations of ghosts and spirits and suicidal ideation with plan to hang herself with chain Related Data Home Medications Medication Instructions Recorded Confirmed inhalational spacing device #1 ea 02/05/23 08/08/23 (BreatheRite MDI Spacer) albuterol sulfate 90 mcg/actuation 2 puff inhalation Q4H PRN PRN 02/16/23 09/01/23 aerosol inhaler (ProAir HFA) wheezing and SOB lamotrigine 150 mg tablet 150 mg PO DAILY 06/25/23 09/01/23 fluticasone furoate 100 1 inh inhalation BID 08/08/23 09/01/23 mcg-vilanterol 25 mcg/dose inhalation powder (Breo Ellipta) fluticasone propionate 50 2 spray intranasal DAILY 08/08/23 09/01/23 mcg/actuation nasal spray,suspension (Flonase Allergy Relief) lithium carbonate 300 mg capsule 300 mg PO BID 08/08/23 09/01/23 lorazepam 1 mg tablet 1 mg PO TID-QID 08/08/23 09/01/23 risperidone 2 mg disintegrating 4 mg PO BID 08/08/23 09/01/23 tablet semaglutide 7 mg tablet 7 mg PO DAILY #30 tabs 08/08/23 09/01/23 temazepam 15 mg capsule 15 mg PO QHS 08/08/23 09/01/23 levothyroxine 50 mcg capsule 50 mcg PO DAILY #90 caps 08/18/23 09/01/23 Previous Rx's Medication Instructions Recorded inhalational spacing device #1 ea 02/05/23 (BreatheRite MDI Spacer) semaglutide 7 mg tablet 7 mg PO DAILY #30 tabs 08/08/23 levothyroxine 50 mcg capsule 50 mcg PO DAILY #90 caps 08/18/23 Allergies Allergy/AdvReac Type Severity Reaction Status Date / Time penicillin V Allergy Unknown Skin Rash Unverified 09/01/23 22:11 haldol Allergy Severe Anaphylaxis Uncoded 09/01/23 22:11 General Stated Complaint: PsychEval CLIVE: 2 Review of Systems Narrative: Review of Systems Constitutional: negative Eyes: negative ENT: negative Cardiovascular: negative Respiratory: negative Gastrointestinal: negative : negative Musculoskeletal: negative Skin: negative Neurologic: negative Psych: Delusions, hallucinations, suicidal ideation Exam Narrative Exam Narrative: Physical Examination General: alert, awake, cooperative, resting comfortably, no acute distress HEENT: normocephalic, atraumatic; PERRL, EOM intact, conjunctiva normal; no nasal discharge; moist mucous membranes, oral and pharyngeal mucosa normal, tolerating secretions Neck: supple, trachea midline; full ROM Chest: normal to inspection Respiratory: normal respiratory effort, speaking in full sentences, clear to auscultation, no wheezing, rales or rhonchi Cardiac: regular rate, regular rhythm, S1S2 intact, no murmurs rubs or gallops GI: abdomen soft, non-tender, non-distended; no palpable mass or hepatosplenomegaly Skin: no lesions, rashes or trauma appreciated Neuro: AAOx3, normal speech, moving all extremities Psych: Psychomotor agitation, intermittently verbally aggressive, reports of suicidal ideation and delusions and hallucination Course Vital Signs Vital signs: Vital Signs Temperature 36.1 C L 09/01/23 22:07 Pulse 102 H 09/01/23 22:07 Respiratory Rate 20 09/01/23 22:07 Blood Pressure 181/81 H 09/01/23 22:07 Pulse Oximetry 98 09/01/23 22:07 Temperature 36.1 C L 09/01/23 22:07 Temperature Source Skin 09/01/23 22:07 Pulse 102 H 09/01/23 22:07 Respiratory Rate 20 09/01/23 22:07 Respiratory Effort Normal 09/01/23 22:10 Blood Pressure 181/81 H 09/01/23 22:07 Blood Pressure Position Sitting 09/01/23 22:07 Pulse Oximetry 98 09/01/23 22:07 Oxygen Delivery Method Room Air 09/01/23 22:07 Oxygen Flow Rate 0 09/01/23 22:07 Medical Decision Making 42-year-old female history of bipolar disorder presents brought in by PD under mental health warrant family noted increased dysregulated behavior over the past several days including worsening delusions, visual hallucinations of ghosts and spirits and suicidal ideation with plan to hang herself with chain; currently resting comfortably however intermittently verbally aggressive, does have some psychomotor agitation, given described delusions hallucinations and suicidal ideation with plan patient benefit from inpatient psychiatric care, will obtain basic labs we will check lithium level will check toxicologic levels, will attempt to obtain urinalysis and urine drug tox, will provide anxiolysis with midazolam patient refusing IM or p.o. will atomize, patient also having some nausea will administer Zofran. Likely to be moved to zone B, emergency examination paperwork has been completed awaiting second certification 23: 04 olanzapine 10 mg IM has been drawn up, patient currently refusing to take medication, I have counseled her that given her history of physical and verbal aggression with staff we have a low threshold to administer this medication unless she is compliant with staying in her room patient has agreed. Quality:SDOH Health Related Social Needs: No Data to Display PFSH All Active Problems (Updated 08/08/23 @ 16:03 by Britt Cole NP) Hypothyroidism (Chronic) Bilateral leg edema (Acute) COPD (chronic obstructive pulmonary disease) (Chronic) Diabetes mellitus (Chronic) GERD (gastroesophageal reflux disease) (Chronic) Abscess (Acute) Morbid obesity (Acute) Medical History (Updated 08/08/23 @ 16:03 by Britt Cole NP) Lichen sclerosus IUD surveillance History of COVID-19 (~01/2021) 01/2021 Asthma Bipolar disorder Anxiety Family History Mother Personal history of malignant neoplasm Breast Cancer Social History Smoking/Tobacco Use Status: Current every day Tobacco Type: cigarettes Years smoked: 15 Smoking risk assessment performed?: Yes Alcohol Intake: never Drug use: Never Substance use type: does not use Housing: house Do you feel safe at home: No Do you feel safe in your relationship?: No Additional Social history: KWADWO at present History History 2 Para 1 Hx # Term Pregnancies Multiple births Hx # Pregnancies Ectopic pregnancies AB induced Hx Number of Living Children AB spontaneous
[2023-09-01 22:34] LABS: Bilirubin Negative (Negative); Blood Negative (Negative); Clarity Clear (Clear); Glucose Negative (Negative); Ketones Negative (Negative); Leukocyte Esterase Trace (Negative); Nitrite Negative (Negative); Specific Gravity 1.015 (1.005-1.025); Urobilinogen 0.2 mg/dL (Up to 0.2)
[2023-09-01 22:42] LABS: Epithelial Cells Rare HPF (Negative); RBC Negative HPF (0-2); WBC 0-2 HPF (0-5)
[2023-09-01 22:43] LABS: Bacteria Negative HPF (Negative); C & S Indicated? No; Casts Negative LPF (Negative); Crystals Negative HPF (Negative); Mucus Negative (Negative)
[2023-09-01 22:52] LABS: *AMPHETAMINES SCREEN URINE Negative (Negative); *BARBITURATES SCREEN URINE Negative (Negative); *BENZODIAZEPINES SCREEN URINE Negative (Negative); Cannabinoids THC Negative (Negative); Cocaine Screen,Urine Negative (Negative); METHADONE URINE SCREEN Negative (Negative); OPIATES URINE SCREEN Negative (Negative); Tricyclic Antidepressants Negative (Negative)
[2023-09-01 22:57] LABS: Abs Immature Grans 0.17 10^3/uL (0.0-0.06); Absolute Eosinophil Count 0.55 10^3/uL (0.0-0.7); Absolute Lymphocyte Count 2.68 10^3/uL (1.2-3.4); Basophils % 0.6 %; Eosinophils % 4.5 %; HCT 43.6 % (36.0-46.0); HGB 13.8 g/dL (11.2-15.7); Immature Grans % 1.4 %; Lymphocytes % 21.8 %; MCH 28.2 pg (27.0-33.0); MCHC 31.7 % (32.0-36.0); MCV 89 fL (80-95); Monocytes % 5.7 %; Platelet Count 329 10^3/uL (130-400); RBC 4.89 10^6/uL (3.93-5.22); RDW 18.1 % (11.7-14.6); RDW-SD 58.3 fL; WBC 12.31 10^3/uL (4.4-10.8)
[2023-09-01 22:58] LABS: Absolute Basophil Count 0.07 10^3/uL (0.0-0.2); Absolute Neutrophil Count 8.12 10^3/uL (1.2-6.7)
[2023-09-01] MEDS: Ondansetron O.D.T. 4 MG TABEF SL (23:06)
[2023-09-01 23:13] LABS: ALT 82 U/L (14-59); AST 22 U/L (15-37); Albumin 3.6 g/dL (3.4-5.0); Alkaline Phosphatase 114 U/L (46-116); Anion Gap 10.6 mmol/L (3-11); BUN 13 mg/dL (7-18); Bilirubin, Total 0.38 mg/dL (0.2-1.0); CO2 29.4 mmol/L (21.0-32.0); Calcium 9.4 mg/dL (8.5-10.1); Chloride 100 mmol/L (98-107); Estimated GFR 71.69 (mL/min/1.73m2); Glucose 182 mg/dL (74-106); Lipase 33 U/L (16-77); Potassium 4.1 mmol/L (3.5-5.1); Sodium 140 mmol/L (136-145); Total Protein 7.2 g/dL (6.4-8.2)
[2023-09-01 23:15] LABS: Lithium 0.4 mmol/L (0.6-1.2)
[2023-09-01 23:19] LABS: Salicylate 4.1 mg/dL (<2.8)
[2023-09-01 23:21] LABS: Acetaminophen < 2 ug/mL (10-30); TSH (W/Ref FT4) 4.11 uIU/mL (0.36-3.74)
[2023-09-01 23:38] LABS: FREE T4 1.05 ng/dL (0.76-1.46)
[2023-09-01 23:40] LABS: Lab Add On Test DONE
[2023-09-01 23:58] LABS: ETHANOL BLOOD < 3.0 mg/dL (<10)
[2023-09-02] MEDS: OLANZapine 10 MG TAB PO ×3 (03:19→20:01)
[2023-09-02] MEDS: Nicotine 21 MG/24 HR PATCH TD (04:16)
[2023-09-02] MEDS: Lithium Carbonate 300 MG CAP PO (06:57)
--- NOTE | 2023-09-02 07:19 | W.EDPROG ---
Date of service: 09/02/23 Time of Service: 16:17 Medical Decision Making Patient received from off going provider. Patient is well-known to this department with multiple medical comorbidities. Currently Under involuntary hold pending second certification. 162 Second certification has been completed and filed by [facility] psychiatrist. Now pending placement. Throughout the day the patient has been stable. Has requested a few as needed medications, but has not required chemical restraint. Quality:[facility] Health Related Social Needs: No Data to Display Sign Out Sign Out Data: Sign Out Comment: bipolar, si ,delusions, hallucinations; involuntary, EE paperwork complete, awaiting second cert and placement; hx of verbal and physical aggression, olanzapine 10 mg IM has been drawn up with nursing staff Last updated by Con Giles MD at 09/01/23 23:07 Sign Out Comment: Took oral olanzapine overnight and has been sleeping. Laboratory studies unremarkable. She is pending second certification and is currently involuntary. Last updated by Hari Nichols MD at 09/02/23 07:41 Discharge Plan Discharge Details Chief Complaint: PsychEval Primary Care Provider: Britt oCle ED Provider: Arun Rojas Home Meds and New Rx's Prescriptions: No Action (DME) BreatheRite MDI Spacer Spacer See Rx Instructions .ROUTE .MEDSUPPLY Qty: 1 0RF Rx Instructions: As directed fluticasone furoate-vilanterol [Breo Ellipta] 100-25 mcg/dose blister with device 1 inh inhalation BID fluticasone propionate [Flonase Allergy Relief] 50 mcg/actuation spray,suspension 2 spray intranasal DAILY Rx Instructions: administer into each nostril lithium carbonate 300 mg capsule 300 mg PO BID Rx Instructions: 300mg in the AM and 600mg PM. -hb temazepam 15 mg capsule 15 mg PO QHS semaglutide 7 mg tablet 7 mg PO DAILY Qty: 30 1RF lamotrigine 150 mg tablet 150 mg PO DAILY Patient Comments: TAKE ONE TABLET BY MOUTH EVERY DAY lorazepam 1 mg tablet 1 mg PO TID-QID Patient Comments: TAKE ONE TABLET BY MOUTH EVERY DAY albuterol sulfate [ProAir HFA] 90 mcg/actuation HFA aerosol inhaler 2 puff Inhalation Q4H PRN PRN (Reason: wheezing and SOB) levothyroxine 50 mcg tablet 50 mcg PO DAILY Patient Comments: TAKE ONE TABLET BY MOUTH EVERY DAY risperidone 4 mg tablet,disintegrating 4 mg translingual BID Patient Comments: PLACE ONE TABLET ON THE TONGUE AND ALLOW TO DISSOLVE TWICE A DAY
[2023-09-02] MEDS: Acetaminophen 500 MG TAB 1000 MG PO (07:20)
--- NOTE | 2023-09-02 07:29 | ED.PROG_ITS ---
Date of service: 09/02/23 Time of Service: 07:29 Medical Decision Making Patient signed out to me pending medical clearance. She was brought in by police and has been placed on an EE by Dr. Guaman. Second certification has been requested. She has mostly been cooperative overnight. She did request medication to help her and agreed to take oral olanzapine. Medications have been reconciled and ordered. Laboratory studies with no worrisome findings. White count is minimally elevated. [place] level is low. Tylenol, aspirin, alcohol negative. Urine drug screen negative. Urine negative. Patient will be signed out pending second certification. Lab Data Lab results reviewed: Yes I reviewed the patient's lab results. Sign Out Sign Out Data: Sign Out Comment: bipolar, si ,delusions, hallucinations; involuntary, EE paperwork complete, awaiting second cert and placement; hx of verbal and physical aggression, olanzapine 10 mg IM has been drawn up with nursing staff Last updated by Con Giles MD at 09/01/23 23:07 Discharge Plan Discharge Details Chief Complaint: PsychEval Primary Care Provider: Britt Cole ED Provider: Hari Nichols [facility]s and New Rx's Prescriptions: No Action (DME) BreatheRite MDI Spacer Spacer See Rx Instructions .ROUTE .MEDSUPPLY Qty: 1 0RF Rx Instructions: As directed fluticasone furoate-vilanterol [Breo Ellipta] 100-25 mcg/dose blister with device 1 inh inhalation BID fluticasone propionate [Flonase Allergy Relief] 50 mcg/actuation spray,suspension 2 spray intranasal DAILY Rx Instructions: administer into each nostril lithium carbonate 300 mg capsule 300 mg PO BID Rx Instructions: 300mg in the AM and 600mg PM. -hb temazepam 15 mg capsule 15 mg PO QHS semaglutide 7 mg tablet 7 mg PO DAILY Qty: 30 1RF levothyroxine 50 mcg capsule 50 mcg PO DAILY Qty: 90 3RF lamotrigine 150 mg tablet 150 mg PO DAILY Patient Comments: TAKE ONE TABLET BY MOUTH EVERY DAY lorazepam 1 mg tablet 1 mg PO TID-QID Patient Comments: TAKE ONE TABLET BY MOUTH EVERY DAY risperidone 2 mg tablet,disintegrating 4 mg PO BID Patient Comments: PLACE ONE TABLET IN THE MOUTH AND ALLOW TO DISSOLVE albuterol sulfate [ProAir HFA] 90 mcg/actuation HFA aerosol inhaler 2 puff Inhalation Q4H PRN PRN (Reason: wheezing and SOB)
[2023-09-02] MEDS: Budesonide/Formoterol 80/4.5 6.9 GM 60 PUFF INH IH ×2 (08:33→20:00)
[2023-09-02] MEDS: Inhaler, Assist Device 1 EACH MC (08:33)
[2023-09-02] MEDS: lamoTRIgine 100 MG TAB 150 MG PO (09:04)
--- NOTE | 2023-09-02 11:21 | NUR.NOTE ---
Pt's mom said she would bring semaglutide here from home because pharmacy does not it in its formulary.Nursing Note:
--- NOTE | 2023-09-02 11:50 | CMSP_ITS ---
Date of service: 09/02/23 Time of Service: 11:50 Care Management Safety Plan Status Status: Involuntary Reason for Wait Reason for Wait: Inpatient Admission Safety Plan Safety Plan: INVOLUNTARY FOR INPATIENT PSYCHIATRIC STABILIZATION.? Patient is appropriate in all interactions since arriving at [facility]; Pt has demonstrated appropriate coping and communication skills, has articulated his or her needs and concerns and is fully engaged during staff interactions. Safety plan has been established with patient, and care team, to adhere to patient goals, identify restrictions based on behavioral status, address nutrition, and determine allowed personal belongings, tools for hygiene and personal care. Determine level of activity including ambulation, level of supervision, visitors, and determine privileges based on behaviors and level of engagement by pt. SAFETY PLAN: 1. Will remain on suicide precautions, in paper clothes 2. Will remain in Zone B under direct supervision of one-on-one staff at all times provided by [employer]; MALLIKA, BELT MAKER HELPER division road supervisor. 3. May have paper cups, plates, finger foods as well as a cardboard spoon with which to eat meals. 4. Follow [facility] Management of the Admitted Behavioral Health Patient policy. 5. Shower available in Zone B without restriction. 6. Personal belongings-soft items permitted at RN discretion. 7. Visitors- at RN discretion. Sirena's mother, and son are close supports. 8. Activities: soft cart items approved per RN discretion. 9.? Bathroom available in Zone B without restriction. 10. Phone: incoming/outgoing calls limited to [facility] cordless phone at RN discretion. Due to INVOLUNTARY status, patient is being held at [facility] by the Department of Mental Health ([facility]) until 2nd certification by [facility] Psychiatrist can be performed (within 24 hours). Staff will provide de-escalation support (CPI) as needed. If patient wishes to leave [facility], staff will contact [facility] Crisis Screener ([phone]) and [employer]ra[employer] Layer Helper ([phone]) as soon as possible. In the event of elopement, notify [place] [employer] ([phone]). Patient is currently involuntarily at [facility]. [facility] Frontline Dramatic Reader will continue seeking placement. Please contact the Terrazzo Layer Helper for any needed changes to Safety Plan. Safety plan has been provided to interdepartmental care team. Patient will be transported by [facility] at time of discharge.
[2023-09-02] MEDS: Nicotine 2 MG LOZG SUC ×2 (11:55→18:01)
--- NOTE | 2023-09-02 12:36 | CMPROGNOTE_ITS ---
Date of service: 09/02/23 Time of Service: 12:36 Care Management Progress Note Progress Note Text Progress Note Text: CM huddled with Sirena's primary RN, MALLIKA/PILLOO, Leticia & Kailee [facility] clinicians, and RN supervisor typesetting. Sirena was sleeping at the time of the visit. Per [facility], Sirena was brought in on a warrant due to her threatening to end her life, and reporting delusions that other people are trying to harm her. Per Sirena's mother, she has been taking her medication, although her primary RN indicated that her lithium level was low on arrival. Her primary RN stated that Sirena slept for 3-4 hours overnight, and ate well at breakfast. She has been resting most of the day since breakfast. Sirena's mother, , and son have been identified as good supports; visitation will be at RN discretion. Sirena's mother will be dropping off a medication that [facility] does not have access to later today. Per ELANA Kelly, referrals will be sent to all accepting facilities; currently waiting on second certification to be completed as well. CM created a safety plan for staff to follow while Sirena is in Zone B, with input from staff and [facility]. CM will continue to follow. Discharge Potential Discharge Needs: Other (second certification for EE) Anticipated Barriers to Discharge: Bed availability Patient/Family Education Needs: Review discharge instructions, discuss Ask Me Three Transportation: Other (Secure transport; EMS vs [employer] Knife Foxing Cutter) Plan: Sirena is being held on EE status, awaiting second certification. If EE is upheld, Sirena will remain in Zone B waiting to be transferred for inpatient psychiatric treatment. She will transport via EMS vs community health representative. CM will continue to follow. Status Status: Involuntary Reason for Wait: Inpatient Admission
--- NOTE | 2023-09-02 13:32 | MHPN_ITS ---
Date of service: 09/02/23 Time of Service: 13:32 Mental Health Emergency Note Release [facility] release signed:: Yes Reason for Visit The client is waiting at [facility] on a MH Warrant/EE executed by HERBIE Reich. This is a reassessment following the write up of her EE. This assessment is completed face to face at bedside. The client is known to [facility], however, has not been a client for many years since her PMHNP left and is followed by the HNP to date. She has spent much of the last year in psychiatric hospitals on involuntary status. She has had 4 since February and when she returns home is home for less than a couple of weeks prior to requiring a MH Warrant again. She has been at and [facility] the most recent was . In the last 2 weeks has the pt presented for ES prior to today?: Unknown Impression The client is a 42-year-old, , female who resides in [place], [place] with her and minor child per our last record. She is unemployed at this time. She uses She/Her pronouns. All unreported categories are honored during this assessment. The client is observed lying upside down on her bed covered with blankets. She has short hair now that is new since her last EE. She reported I hate it. The client is in a deep sleep when this clinician and HERBIE Miller enter the room as evidenced by snoring. She does not wake to her name being called so this clinician lightly shock her arm to which she responded for a short period. She immediately began to cry when she aw this clinician calling this clinician by name. She said I'm not doing well. The client denied that she is suicidal at this time but then quickly fell back to sleep snoring again. Per nursing the client did eat this am however, only slept a few hours last night. She is also described and continuing to walk around naked which is common for her in these states. This clinician met with care management and her nurse to discuss a safety plan. All referrals have been sent out. Her second certification is scheduled for 3:30pm. Plan/Disposition Recommended Disposition: Hospitalization facilities contacted. Plan: The client will remain at [facility] pending her second certification at 2:30pm. Follow up will happen after that assessment to plan next steps. Reports/communication Outcome discussed with: ED/Personnel
[2023-09-02] MEDS: Ibuprofen 600 MG TAB PO (15:45)
--- NOTE | 2023-09-02 17:06 | W.EDPROG ---
Date of service: 09/02/23 Time of Service: 17:07 Medical Decision Making I received signout on this 42-year-old patient with history of bipolar disorder. She is currently on an involuntary hold. Her second certification is in place. Her home medications have been ordered in addition to as needed olanzapine. Patient has been cooperative last shift. Will update documentation as clinically warranted and signed patient out to the oncoming overnight provider. 10:48 PM No active behavioral issues last shift. Will sign patient out to Dr. Nichols. Quality:[facility] Health Related Social Needs: No Data to Display Sign Out Sign Out Data: Sign Out Comment: bipolar, si ,delusions, hallucinations; involuntary, EE paperwork complete, awaiting second cert and placement; hx of verbal and physical aggression, olanzapine 10 mg IM has been drawn up with nursing staff Last updated by Con Giles MD at 09/01/23 23:07 Sign Out Comment: Took oral olanzapine overnight and has been sleeping. Laboratory studies unremarkable. She is pending second certification and is currently involuntary. Last updated by Hari Nichols MD at 09/02/23 07:41 Sign Out Comment: Involuntary hold, EE with 2nd certification upheld Currently pending placement PRN meds add: 10mg zyprexa PRN TID, tylenol, motrin, nicotine lozenges. Patient generally naked throughout the day but agitation has been management. PRN Meds requested, but patient not required restraint. Last updated by Arun Rojas MD at 09/02/23 16:23 Discharge Plan Discharge Details Chief Complaint: PsychEval Primary Care Provider: Britt Cole ED Provider: Mervin Esquivel Home Meds and New Rx's Prescriptions: No Action (DME) BreatheRite MDI Spacer Spacer See Rx Instructions .ROUTE .MEDSUPPLY Qty: 1 0RF Rx Instructions: As directed fluticasone furoate-vilanterol [Breo Ellipta] 100-25 mcg/dose blister with device 1 inh inhalation BID fluticasone propionate [Flonase Allergy Relief] 50 mcg/actuation spray,suspension 2 spray intranasal DAILY Rx Instructions: administer into each nostril lithium carbonate 300 mg capsule 300 mg PO BID Rx Instructions: 300mg in the AM and 600mg PM. -hb temazepam 15 mg capsule 15 mg PO QHS semaglutide 7 mg tablet 7 mg PO DAILY Qty: 30 1RF lamotrigine 150 mg tablet 150 mg PO DAILY Patient Comments: TAKE ONE TABLET BY MOUTH EVERY DAY lorazepam 1 mg tablet 1 mg PO TID-QID Patient Comments: TAKE ONE TABLET BY MOUTH EVERY DAY albuterol sulfate [ProAir HFA] 90 mcg/actuation HFA aerosol inhaler 2 puff Inhalation Q4H PRN PRN (Reason: wheezing and SOB) levothyroxine 50 mcg tablet 50 mcg PO DAILY Patient Comments: TAKE ONE TABLET BY MOUTH EVERY DAY risperidone 4 mg tablet,disintegrating 4 mg translingual BID Patient Comments: PLACE ONE TABLET ON THE TONGUE AND ALLOW TO DISSOLVE TWICE A DAY
[2023-09-02 17:49] VITALS: BP 150/89; PULSE 77; RESP 16; TEMP 36.8; O2SAT 96
[2023-09-02] MEDS: Temazepam 15 MG CAP PO (20:00)
[2023-09-02] MEDS: Lithium Carbonate 300 MG CAP 600 MG PO (20:01)
[2023-09-03] MEDS: Nicotine 2 MG LOZG SUC ×8 (01:00→22:11)
[2023-09-03] MEDS: Miconazole 2% Topical Powder 85 GM BTL (01:32)
[2023-09-03] MEDS: Ibuprofen 600 MG TAB PO (01:51)
[2023-09-03] MEDS: Acetaminophen 500 MG TAB 1000 MG PO ×3 (01:52→23:00)
[2023-09-03] MEDS: Sodium Chloride-Nasal SPRAY-ADULT 44 ML BTL NS (02:31)
[2023-09-03] MEDS: OLANZapine 10 MG TAB PO ×2 (04:09→12:57)
--- NOTE | 2023-09-03 07:40 | W.EDPROG ---
Date of service: 09/03/23 Time of Service: 17:01 Medical Decision Making 42-year-old female currently on involuntary hold pending psychiatric placement. Placement has not been obtained today. Patient has had multiple as needed requests nothing significant. Has not needed additional medications outside of her scheduled meds Quality:SDOH Health Related Social Needs: No Data to Display Sign Out Sign Out Data: Sign Out Comment: bipolar, si ,delusions, hallucinations; involuntary, EE paperwork complete, awaiting second cert and placement; hx of verbal and physical aggression, olanzapine 10 mg IM has been drawn up with nursing staff Last updated by Con Giles MD at 09/01/23 23:07 Sign Out Comment: Took oral olanzapine overnight and has been sleeping. Laboratory studies unremarkable. She is pending second certification and is currently involuntary. Last updated by Hari Nichols MD at 09/02/23 07:41 Sign Out Comment: Involuntary hold, EE with 2nd certification upheld Currently pending placement PRN meds add: 10mg zyprexa PRN TID, tylenol, motrin, nicotine lozenges. Patient generally naked throughout the day but agitation has been management. PRN Meds requested, but patient not required restraint. Last updated by Arun Rojas MD at 09/02/23 16:23 Sign Out Comment: 42-year-old female on involuntary hold with second certification upheld. Pending placement. Home meds and PRNs in place. No active behavioral issues last shift. Last updated by Mervin Esquivel MD at 09/02/23 22:49 Sign Out Comment: Patient remains on an involuntary hold pending placement after second certification yesterday. No issues overnight, did request as needed Zyprexa which she took towards the end of the shift. Did not require any interventions overnight. Last updated by Hari Nichols MD at 09/03/23 07:15 Sign Out Comment: Involuntary hold, EE with 2nd cert upheld. Currently pending placement. Has many PRN requests and requires re-direction by nursing, but no severe agitation or issues Last updated by Arun Rojas MD at 09/03/23 16:56 Discharge Plan Discharge Details Chief Complaint: PsychEval Primary Care Provider: Britt Cole ED Provider: Arun Rojas Home Meds and New Rx's Prescriptions: No Action (DME) BreatheRite MDI Spacer Spacer See Rx Instructions .ROUTE .MEDSUPPLY Qty: 1 0RF Rx Instructions: As directed fluticasone furoate-vilanterol [Breo Ellipta] 100-25 mcg/dose blister with device 1 inh inhalation BID fluticasone propionate [Flonase Allergy Relief] 50 mcg/actuation spray,suspension 2 spray intranasal DAILY Rx Instructions: administer into each nostril lithium carbonate 300 mg capsule 300 mg PO BID Rx Instructions: 300mg in the AM and 600mg PM. -hb temazepam 15 mg capsule 15 mg PO QHS semaglutide 7 mg tablet 7 mg PO DAILY Qty: 30 1RF lamotrigine 150 mg tablet 150 mg PO DAILY Patient Comments: TAKE ONE TABLET BY MOUTH EVERY DAY lorazepam 1 mg tablet 1 mg PO TID-QID Patient Comments: TAKE ONE TABLET BY MOUTH EVERY DAY albuterol sulfate [ProAir HFA] 90 mcg/actuation HFA aerosol inhaler 2 puff Inhalation Q4H PRN PRN (Reason: wheezing and SOB) levothyroxine 50 mcg tablet 50 mcg PO DAILY Patient Comments: TAKE ONE TABLET BY MOUTH EVERY DAY risperidone 4 mg tablet,disintegrating 4 mg translingual BID Patient Comments: PLACE ONE TABLET ON THE TONGUE AND ALLOW TO DISSOLVE TWICE A DAY
[2023-09-03] MEDS: lamoTRIgine 100 MG TAB 150 MG PO (07:48)
[2023-09-03] MEDS: Budesonide/Formoterol 80/4.5 6.9 GM 60 PUFF INH IH ×2 (07:48→21:08)
[2023-09-03] MEDS: Nicotine 21 MG/24 HR PATCH TD (07:50)
[2023-09-03] MEDS: Lithium Carbonate 150 MG CAP 300 MG PO (08:23)
[2023-09-03] MEDS: Levothyroxine 50 MCG TAB PO (08:23)
--- NOTE | 2023-09-03 17:11 | W.EDPROG ---
Date of service: 09/03/23 Time of Service: 17:12 Medical Decision Making accepted at [facility] Doc to Doc completed Quality:SDOH Health Related Social Needs: No Data to Display Sign Out Sign Out Data: Sign Out Comment: bipolar, si ,delusions, hallucinations; involuntary, EE paperwork complete, awaiting second cert and placement; hx of verbal and physical aggression, olanzapine 10 mg IM has been drawn up with nursing staff Last updated by Con Giles MD at 09/01/23 23:07 Sign Out Comment: Took oral olanzapine overnight and has been sleeping. Laboratory studies unremarkable. She is pending second certification and is currently involuntary. Last updated by Hari Nichols MD at 09/02/23 07:41 Sign Out Comment: Involuntary hold, EE with 2nd certification upheld Currently pending placement PRN meds add: 10mg zyprexa PRN TID, tylenol, motrin, nicotine lozenges. Patient generally naked throughout the day but agitation has been management. PRN Meds requested, but patient not required restraint. Last updated by Arun Rojas MD at 09/02/23 16:23 Sign Out Comment: 42-year-old female on involuntary hold with second certification upheld. Pending placement. Home meds and PRNs in place. No active behavioral issues last shift. Last updated by Mervin Esquivel MD at 09/02/23 22:49 Sign Out Comment: Patient remains on an involuntary hold pending placement after second certification yesterday. No issues overnight, did request as needed Zyprexa which she took towards the end of the shift. Did not require any interventions overnight. Last updated by Hari Nichols MD at 09/03/23 07:15 Sign Out Comment: Involuntary hold, EE with 2nd cert upheld. Accepted at [facility], Omar Rankin Has many PRN requests and requires re-direction by nursing, but no severe agitation or issues Last updated by Arun Rojas MD at 09/03/23 17:11 Discharge Plan Discharge Details Chief Complaint: PsychEval Primary Care Provider: Britt Cole ED Provider: Arun Rojas Home Meds and New Rx's Prescriptions: No Action (DME) BreatheRite MDI Spacer Spacer See Rx Instructions .ROUTE .MEDSUPPLY Qty: 1 0RF Rx Instructions: As directed fluticasone furoate-vilanterol [Breo Ellipta] 100-25 mcg/dose blister with device 1 inh inhalation BID fluticasone propionate [Flonase Allergy Relief] 50 mcg/actuation spray,suspension 2 spray intranasal DAILY Rx Instructions: administer into each nostril lithium carbonate 300 mg capsule 300 mg PO BID Rx Instructions: 300mg in the AM and 600mg PM. -hb temazepam 15 mg capsule 15 mg PO QHS semaglutide 7 mg tablet 7 mg PO DAILY Qty: 30 1RF lamotrigine 150 mg tablet 150 mg PO DAILY Patient Comments: TAKE ONE TABLET BY MOUTH EVERY DAY lorazepam 1 mg tablet 1 mg PO TID-QID Patient Comments: TAKE ONE TABLET BY MOUTH EVERY DAY albuterol sulfate [ProAir HFA] 90 mcg/actuation HFA aerosol inhaler 2 puff Inhalation Q4H PRN PRN (Reason: wheezing and SOB) levothyroxine 50 mcg tablet 50 mcg PO DAILY Patient Comments: TAKE ONE TABLET BY MOUTH EVERY DAY risperidone 4 mg tablet,disintegrating 4 mg translingual BID Patient Comments: PLACE ONE TABLET ON THE TONGUE AND ALLOW TO DISSOLVE TWICE A DAY
--- NOTE | 2023-09-03 17:55 | W.EDPROG ---
Date of service: 09/03/23 Time of Service: 17:55 Medical Decision Making I received signout on this 42-year-old patient in the emergency department on an EE. No active behavioral issues last shift. [facility] as [facility] and sign patient out to oncoming overnight provider. 9:54 PM No active behavioral issues/shift. Will sign patient out to the oncoming overnight provider, Dr. Nichols. Quality:AKOH Health Related Social Needs: No Data to Display Sign Out Sign Out Data: Sign Out Comment: bipolar, si ,delusions, hallucinations; involuntary, EE paperwork complete, awaiting second cert and placement; hx of verbal and physical aggression, olanzapine 10 mg IM has been drawn up with nursing staff Last updated by Con Giles MD at 09/01/23 23:07 Sign Out Comment: Took oral olanzapine overnight and has been sleeping. Laboratory studies unremarkable. She is pending second certification and is currently involuntary. Last updated by Hari Nichols MD at 09/02/23 07:41 Sign Out Comment: Involuntary hold, EE with 2nd certification upheld Currently pending placement PRN meds add: 10mg zyprexa PRN TID, tylenol, motrin, nicotine lozenges. Patient generally naked throughout the day but agitation has been management. PRN Meds requested, but patient not required restraint. Last updated by Arun Rojas MD at 09/02/23 16:23 Sign Out Comment: 42-year-old female on involuntary hold with second certification upheld. Pending placement. Home meds and PRNs in place. No active behavioral issues last shift. Last updated by Mervin Esquivel MD at 09/02/23 22:49 Sign Out Comment: Patient remains on an involuntary hold pending placement after second certification yesterday. No issues overnight, did request as needed Zyprexa which she took towards the end of the shift. Did not require any interventions overnight. Last updated by Hari Nichols MD at 09/03/23 07:15 Sign Out Comment: Involuntary hold, EE with 2nd cert upheld. Accepted at [facility], Omar Rankin Has many PRN requests and requires re-direction by nursing, but no severe agitation or issues Last updated by Arun Rojas MD at 09/03/23 17:11 Discharge Plan Discharge Details Chief Complaint: PsychEval Primary Care Provider: Britt Cole ED Provider: Mervin Esquivel [place] Meds and New Rx's Prescriptions: No Action (DME) BreatheRite MDI Spacer Spacer See Rx Instructions .ROUTE .MEDSUPPLY Qty: 1 0RF Rx Instructions: As directed fluticasone furoate-vilanterol [Breo Ellipta] 100-25 mcg/dose blister with device 1 inh inhalation BID fluticasone propionate [Flonase Allergy Relief] 50 mcg/actuation spray,suspension 2 spray intranasal DAILY Rx Instructions: administer into each nostril lithium carbonate 300 mg capsule 300 mg PO BID Rx Instructions: 300mg in the AM and 600mg PM. -hb temazepam 15 mg capsule 15 mg PO QHS semaglutide 7 mg tablet 7 mg PO DAILY Qty: 30 1RF lamotrigine 150 mg tablet 150 mg PO DAILY Patient Comments: TAKE ONE TABLET BY MOUTH EVERY DAY lorazepam 1 mg tablet 1 mg PO TID-QID Patient Comments: TAKE ONE TABLET BY MOUTH EVERY DAY albuterol sulfate [ProAir HFA] 90 mcg/actuation HFA aerosol inhaler 2 puff Inhalation Q4H PRN PRN (Reason: wheezing and SOB) levothyroxine 50 mcg tablet 50 mcg PO DAILY Patient Comments: TAKE ONE TABLET BY MOUTH EVERY DAY risperidone 4 mg tablet,disintegrating 4 mg translingual BID Patient Comments: PLACE ONE TABLET ON THE TONGUE AND ALLOW TO DISSOLVE TWICE A DAY
--- NOTE | 2023-09-03 18:24 | CMSP_ITS ---
Date of service: 09/03/23 Time of Service: 18:25 Care Management Safety Plan Status Status: Involuntary Reason for Wait Reason for Wait: Inpatient Admission Safety Plan Safety Plan: INVOLUNTARY FOR INPATIENT PSYCHIATRIC STABILIZATION.? Patient is appropriate in all interactions since arriving at [facility]; Pt has demonstrated appropriate coping and communication skills, has articulated his or her needs and concerns and is fully engaged during staff interactions. Safety plan has been established with patient, and care team, to adhere to patient goals, identify restrictions based on behavioral status, address nutrition, and determine allowed personal belongings, tools for hygiene and personal care. Determine level of activity including ambulation, level of supervision, visitors, and determine privileges based on behaviors and level of engagement by pt. SAFETY PLAN: 1. Will remain on suicide precautions, in paper clothes 2. Will remain in Zone B under direct supervision of one-on-one staff at all times provided by [employer]; MALLIKA, LATHE SPOTTER document review attorney. 3. May have paper cups, plates, finger foods as well as a cardboard spoon with which to eat meals. 4. Follow [facility] Management of the Admitted Behavioral Health Patient policy. 5. Shower available in Zone B without restriction. 6. Personal belongings-soft items permitted at RN discretion. 7. Visitors- at RN discretion. Sirena's mother, and son are close supports. 8. Activities: soft cart items approved per RN discretion. 9.? Bathroom available in Zone B without restriction. 10. Phone: incoming/outgoing calls limited to [facility] cordless phone at RN discretion. Due to INVOLUNTARY status, patient is being held at [facility] by the Department of Mental Health ([facility]) until 2nd certification by [facility] Psychiatrist can be performed (within 24 hours). Staff will provide de-escalation support (CPI) as needed. If patient wishes to leave [facility], staff will contact [facility] Crisis Screener ([phone]) and Flanging Roll Operator ([phone]) as soon as possible. In the event of elopement, notify [place] [employer] ([phone]). Patient is currently involuntarily at [facility]. [facility] Frontline Pipe Layer will continue seeking placement. Please contact the Flanging Roll Operator for any needed changes to Safety Plan. Safety plan has been provided to interdepartmental care team. [facility] at time of discharge.
--- NOTE | 2023-09-03 18:24 | PDOC.CMSAFE ---
Date of service: 09/03/23 Time of Service: 18:25 Care Management Safety Plan Status Status: Involuntary Reason for Wait Reason for Wait: Inpatient Admission Safety Plan Safety Plan: INVOLUNTARY FOR INPATIENT PSYCHIATRIC STABILIZATION.? Patient is appropriate in all interactions since arriving at [facility]; Pt has demonstrated appropriate coping and communication skills, has articulated his or her needs and concerns and is fully engaged during staff interactions. Safety plan has been established with patient, and care team, to adhere to patient goals, identify restrictions based on behavioral status, address nutrition, and determine allowed personal belongings, tools for hygiene and personal care. Determine level of activity including ambulation, level of supervision, visitors, and determine privileges based on behaviors and level of engagement by pt. SAFETY PLAN: 1. Will remain on suicide precautions, in paper clothes 2. Will remain in Zone B under direct supervision of one-on-one staff at all times provided by [employer]; MALLIKA, ERP BUSINESS ANALYST heavy rail train operator. 3. May have paper cups, plates, finger foods as well as a cardboard spoon with which to eat meals. 4. Follow [facility] Management of the Admitted Behavioral Health Patient policy. 5. Shower available in Zone B without restriction. 6. Personal belongings-soft items permitted at RN discretion. 7. Visitors- at RN discretion. Sirena's mother, and son are close supports. 8. Activities: soft cart items approved per RN discretion. 9.? Bathroom available in Zone B without restriction. 10. Phone: incoming/outgoing calls limited to [facility] cordless phone at RN discretion. Due to INVOLUNTARY status, patient is being held at [facility] by the Department of Mental Health ([facility]) until 2nd certification by [facility] Psychiatrist can be performed (within 24 hours). Staff will provide de-escalation support (CPI) as needed. If patient wishes to leave [facility], staff will contact [facility] Crisis Screener ([phone]) and Relay Associate ([phone]) as soon as possible. In the event of elopement, notify [place] [employer] ([phone]). Patient is currently involuntarily at [facility]. [facility] Frontline Citrus Fruit Colorer will continue seeking placement. Please contact the Relay Associate for any needed changes to Safety Plan. Safety plan has been provided to interdepartmental care team. Patient will be transported by [facility] at time of discharge.
--- NOTE | 2023-09-03 18:25 | CMPROGNOTE_ITS ---
Date of service: 09/03/23 Time of Service: 18:27 Care Management Progress Note Progress Note Text Progress Note Text: CM huddled with staff to discuss Sirena's care while in zone B, waiting for inpatient psychiatric treatment. CM spoke with Sirena briefly, who appeared tearful while taking her lunch tray to the common area to eat lunch. Per report, she had positive interactions with another patient in zone B today. She has been appropriate and pleasant with sta ffGregoria Tongeat is reviewing her referral, and is considering her for admission. If accepted, [facility] will coordinate transport. No changes to the safety plan today. CM will continue to follow.
[2023-09-03 21:15] VITALS: BP 169/108; PULSE 85; RESP 18; TEMP 37.2; O2SAT 98
[2023-09-03] MEDS: Temazepam 15 MG CAP PO (22:09)
[2023-09-03] MEDS: Lithium Carbonate 300 MG CAP 600 MG PO (22:10)
[2023-09-04] MEDS: Nicotine 2 MG LOZG SUC ×4 (01:22→09:07)
[2023-09-04 01:28] VITALS: BP 161/106; PULSE 85; RESP 18; TEMP 36.4; O2SAT 97
--- NOTE | 2023-09-04 02:19 | ED.PROG_ITS ---
Date of service: 09/04/23 Time of Service: 06:42 Medical Decision Making Patient remains on involuntary hold and will be placed at [facility] later today. Overnight complaining of mouth pain. She has had thrush previously. She does use a steroid inhaler. She does have evidence of thrush and has been started on clotrimazole lozenges. She has otherwise been cooperative overnight. Quality:SDOH Health Related Social Needs: No Data to Display Exam Narrative Exam Narrative: Const: Obese female in NAD. VS per triage. HEENT: NC/AT. Normal facial exam. OP with evidence of thrush mostly left buccal and tongue. Posterior oropharynx is clear. Neck: Supple. Trachea midline. Lungs: Normal respiratory effort. Neuro: A+O x 3. Normal speech, mentation, gait. Cranial nerves II - XII grossly intact. No gross motor or sensory deficit. Sign Out Sign Out Data: Sign Out Comment: bipolar, si ,delusions, hallucinations; involuntary, EE paperwork complete, awaiting second cert and placement; hx of verbal and physical aggression, olanzapine 10 mg IM has been drawn up with nursing staff Last updated by Con Giles MD at 09/01/23 23:07 Sign Out Comment: Took oral olanzapine overnight and has been sleeping. Laboratory studies unremarkable. She is pending second certification and is currently involuntary. Last updated by Hari Nichols MD at 09/02/23 07:41 Sign Out Comment: Involuntary hold, EE with 2nd certification upheld Currently pending placement PRN meds add: 10mg zyprexa PRN TID, tylenol, motrin, nicotine lozenges. Patient generally naked throughout the day but agitation has been management. PRN Meds requested, but patient not required restraint. Last updated by Arun Rojas MD at 09/02/23 16:23 Sign Out Comment: 42-year-old female on involuntary hold with second certification upheld. Pending placement. Home meds and PRNs in place. No active behavioral issues last shift. Last updated by Mervin Esquivel MD at 09/02/23 22:49 Sign Out Comment: Patient remains on an involuntary hold pending placement after second certification yesterday. No issues overnight, did request as needed Zyprexa which she took towards the end of the shift. Did not require any interventions overnight. Last updated by Hari Nichols MD at 09/03/23 07:15 Sign Out Comment: Involuntary hold, EE with 2nd cert upheld. Accepted at [facility], Omar Rankin Has many PRN requests and requires re-direction by nursing, but no severe agitation or issues Last updated by Arun Rojas MD at 09/03/23 17:11 Sign Out Comment: 42-year-old female on involuntary hold with second certification upheld. Pending placement. Home meds and PRNs in place. No active behavioral issues last shift. Dr. Jerzy Farmer completed earlier this afternoon. Patient awaiting placement at the [facility]. Second certification has held. Last updated by Mervin Esquivel MD at 09/03/23 21:56 Discharge Plan Discharge Details Chief Complaint: PsychEval Primary Care Provider: Britt Cole ED Provider: Hari Nichols Home Meds and New Rx's Prescriptions: No Action (DME) BreatheRite MDI Spacer Spacer See Rx Instructions .ROUTE .MEDSUPPLY Qty: 1 0RF Rx Instructions: As directed fluticasone furoate-vilanterol [Breo Ellipta] 100-25 mcg/dose blister with device 1 inh inhalation BID fluticasone propionate [Flonase Allergy Relief] 50 mcg/actuation spray,suspension 2 spray intranasal DAILY Rx Instructions: administer into each nostril lithium carbonate 300 mg capsule 300 mg PO BID Rx Instructions: 300mg in the AM and 600mg PM. -hb temazepam 15 mg capsule 15 mg PO QHS semaglutide 7 mg tablet 7 mg PO DAILY Qty: 30 1RF lamotrigine 150 mg tablet 150 mg PO DAILY Patient Comments: TAKE ONE TABLET BY MOUTH EVERY DAY lorazepam 1 mg tablet 1 mg PO TID-QID Patient Comments: TAKE ONE TABLET BY MOUTH EVERY DAY albuterol sulfate [ProAir HFA] 90 mcg/actuation HFA aerosol inhaler 2 puff Inhalation Q4H PRN PRN (Reason: wheezing and SOB) levothyroxine 50 mcg tablet 50 mcg PO DAILY Patient Comments: TAKE ONE TABLET BY MOUTH EVERY DAY risperidone 4 mg tablet,disintegrating 4 mg translingual BID Patient Comments: PLACE ONE TABLET ON THE TONGUE AND ALLOW TO DISSOLVE TWICE A DAY
[2023-09-04] MEDS: Albuterol HFA 8 GM 60 PUFF INH IH (05:27)
[2023-09-04] MEDS: Levothyroxine 50 MCG TAB PO (05:28)
[2023-09-04] MEDS: Nicotine 21 MG/24 HR PATCH TD (07:51)
[2023-09-04 08:15] VITALS: BP 161/80; PULSE 75; RESP 16; TEMP 36.1; O2SAT 98
[2023-09-04] MEDS: lamoTRIgine 100 MG TAB 150 MG PO (08:59)
[2023-09-04] MEDS: Lithium Carbonate 150 MG CAP 300 MG PO (08:59)
[2023-09-04] MEDS: Budesonide/Formoterol 80/4.5 6.9 GM 60 PUFF INH IH (09:06)
--- NOTE | 2023-09-04 09:52 | PDOC.MHPN2 ---
Date of service: 09/04/23 Time of Service: 09:52 Mental Health Emergency Note Release [facility] release signed:: Yes Reason for Visit The client is known to [facility] however, has not received services except through for years. She left [facility] when her PMHNP went to a PCP office and has remained in treatment with her since. The client has spent much of the past 12 months in psychiatric hospitals due to rapid cycling of symptoms of her Bipolar diagnosis. The client is being evaluated face to face at [facility] at bedside with HERBIE Miller and this clinician. In the last 2 weeks has the pt presented for prior to today?: Unknown Impression The client is a 42-year-old, , female who resides in [place], [place] with her and minor child per our last record. She is unemployed at this time. She uses She/Her pronouns. All unreported categories are honored during this assessment. She is being held on an involuntary status as she will not accept a voluntary placement and is too acute for any level of outpatient treatment at this time. The client presents as asleep when this clinician and HERBIE Miller arrived. She woke easily and immediately became tearful while talking to [place]. when she saw this clinician she became more tearful and apologetic about being mean to this clinician recently although could not recall when she was. We discussed that this did not affect this clinician and we just need to get her feeling better. She made good eye contact and her moods rapidly changed from focused to unprovoked crying and extremely emotional. The client was wearing a bathrobe however, it was not large enough for her so she still was half nude. She appeared sad and lonely. She id have phone conversations with her mother which appeared to help her. Through the day she made a friendship with another older client there and they sounded and appeared to make a strong evans and were very supportive of each other. Plan/Disposition Recommended Disposition: Hospitalization facilities contacted. Plan: It appears that [facility] is moving forward with an acceptance. Due to the lateness of the day the client likely will not be transported until 09.04.23. Reports/communication Outcome discussed with: ED/Personnel
--- NOTE | 2023-09-04 10:02 | W.EDPROG ---
Date of service: 09/04/23 Time of Service: 12:01 Medical Decision Making Patient transported out of the facility to [facility] without any difficulty or issue. Quality:[facility] Health Related Social Needs: No Data to Display Sign Out Sign Out Data: Sign Out Comment: bipolar, si ,delusions, hallucinations; involuntary, EE paperwork complete, awaiting second cert and placement; hx of verbal and physical aggression, olanzapine 10 mg IM has been drawn up with nursing staff Last updated by Con Giles MD at 09/01/23 23:07 Sign Out Comment: Took oral olanzapine overnight and has been sleeping. Laboratory studies unremarkable. She is pending second certification and is currently involuntary. Last updated by Hari Nichols MD at 09/02/23 07:41 Sign Out Comment: Involuntary hold, EE with 2nd certification upheld Currently pending placement PRN meds add: 10mg zyprexa PRN TID, tylenol, motrin, nicotine lozenges. Patient generally naked throughout the day but agitation has been management. PRN Meds requested, but patient not required restraint. Last updated by Arun Rojas MD at 09/02/23 16:23 Sign Out Comment: 42-year-old female on involuntary hold with second certification upheld. Pending placement. Home meds and PRNs in place. No active behavioral issues last shift. Last updated by Mervin Esquivel MD at 09/02/23 22:49 Sign Out Comment: Patient remains on an involuntary hold pending placement after second certification yesterday. No issues overnight, did request as needed Zyprexa which she took towards the end of the shift. Did not require any interventions overnight. Last updated by Hari Nichols MD at 09/03/23 07:15 Sign Out Comment: Involuntary hold, EE with 2nd cert upheld. Accepted at [facility], [facility] Rankin Has many PRN requests and requires re-direction by nursing, but no severe agitation or issues Last updated by Arun Rojas MD at 09/03/23 17:11 Sign Out Comment: 42-year-old female on involuntary hold with second certification upheld. Pending placement. Home meds and PRNs in place. No active behavioral issues last shift. Dr. Jerzy Farmer completed earlier this afternoon. Patient awaiting placement at the [facility]. Second certification has held. Last updated by Mervin Esquivel MD at 09/03/23 21:56 Sign Out Comment: Patient to be transferred out to [place] inpatient psychiatric admission later this morning. Last updated by Hari Nichols MD at 09/04/23 07:26 Discharge Plan Discharge Details Chief Complaint: PsychEval Primary Care Provider: Britt Cole ED Provider: Arun Rojas Home Meds and New Rx's Prescriptions: No Action (DME) B[employer]he[employer] MDI Spacer Spacer See Rx Instructions .ROUTE .MEDSUPPLY Qty: 1 0RF Rx Instructions: As directed fluticasone furoate-vilanterol [Breo Ellipta] 100-25 mcg/dose blister with device 1 inh inhalation BID fluticasone propionate [Flonase Allergy Relief] 50 mcg/actuation spray,suspension 2 spray intranasal DAILY Rx Instructions: administer into each nostril lithium carbonate 300 mg capsule 300 mg PO BID Rx Instructions: 300mg in the AM and 600mg PM. -hb temazepam 15 mg capsule 15 mg PO QHS semaglutide 7 mg tablet 7 mg PO DAILY Qty: 30 1RF lamotrigine 150 mg tablet 150 mg PO DAILY Patient Comments: TAKE ONE TABLET BY MOUTH EVERY DAY lorazepam 1 mg tablet 1 mg PO TID-QID Patient Comments: TAKE ONE TABLET BY MOUTH EVERY DAY albuterol sulfate [ProAir HFA] 90 mcg/actuation HFA aerosol inhaler 2 puff Inhalation Q4H PRN PRN (Reason: wheezing and SOB) levothyroxine 50 mcg tablet 50 mcg PO DAILY Patient Comments: TAKE ONE TABLET BY MOUTH EVERY DAY risperidone 4 mg tablet,disintegrating 4 mg translingual BID Patient Comments: PLACE ONE TABLET ON THE TONGUE AND ALLOW TO DISSOLVE TWICE A DAY Discharge Data Discharge Date/Time-TO BE ENTERED AT DEPARTURE: 09/04/23 11:28
[2023-09-04] MEDS: OLANZapine 10 MG TAB PO (11:01)
== END 2023-09-04 11:28 ==
PROVIDERS: Emergency Medicine; Emergency Provider Emergency Medicine; PCP Nurse Practitioner Family
DX: R45.851 Suicidal ideations (principal); F31.9 Bipolar disorder, unspecified; R44.0 Auditory hallucinations; F22 Delusional disorders; F17.210 Nicotine dependence, cigarettes, uncomplicated
CPT/HCPCS: 00123; 80053; 80307; 81025; 82962; 83690; 99285; 80178; 80320; 80329; 81003; 81015; 84439; 84443; 85025; J3490

== ENCOUNTER 2023-11-13 02:39 | Outpatient (CLI) | payer MEDICARE, SELFPAY ==
[2023-11-13 12:41] LABS: Calculated LDL 107 mg/dL (<100); Cholesterol 197 mg/dL (<200); HDL Cholesterol 61 mg/dL (40-60); Triglyceride 148 mg/dL (<150)
[2023-11-13 12:48] LABS: ALT 110 U/L (14-59); AST 39 U/L (15-37); Albumin 3.4 g/dL (3.4-5.0); Alkaline Phosphatase 103 U/L (46-116); Anion Gap 6.7 mmol/L (3-11); BUN 12 mg/dL (7-18); Bilirubin, Total 0.38 mg/dL (0.2-1.0); CO2 33.3 mmol/L (21.0-32.0); CREATININE 0.9 mg/dL (0.55-1.02); Calcium 10.4 mg/dL (8.5-10.1); Chloride 99 mmol/L (98-107); Estimated GFR 80.84 (mL/min/1.73m2); Glucose 195 mg/dL (74-106); Potassium 4.6 mmol/L (3.5-5.1); Sodium 139 mmol/L (136-145); TSH (W/Ref FT4) 5.73 uIU/mL (0.36-3.74); Total Protein 6.8 g/dL (6.4-8.2)
[2023-11-13 13:05] LABS: FREE T4 0.91 ng/dL (0.76-1.46)
[2023-11-13 14:15] LABS: Lithium 0.5 mmol/L (0.6-1.2)
[2023-11-13 23:24] LABS: Prolactin 46.3 ng/mL (See Note)
== END 2023-11-13 02:40 | disposition home or self-care (01) ==
LOC: LOS 02:39
PROVIDERS: Nurse Practitioner Family; PCP Nurse Practitioner Family; Visit Provider Nurse Practitioner Family
DX: E78.6 Lipoprotein deficiency (principal)
CPT/HCPCS: 36415; 80048; 80053; 80061; 80178; 84146; 84439; 84443

== ENCOUNTER 2024-05-13 01:13 | Outpatient (CLI) | payer MEDICARE, SELFPAY ==
[2024-05-13] MEDS: Barium Sulfate 2% W/V-Berry Smoothie 450 ML BTL PO ×2 (09:45→09:48)
[2024-05-13 10:11] LABS: Estimated GFR 71.24 (mL/min/1.73m2); TSH (W/Ref FT4) 3.03 uIU/mL (0.36-3.74)
[2024-05-13] MEDS: Normal Saline - Diluent 50 ML VIAL IJ (11:38)
[2024-05-13] MEDS: Omnipaque 350 MG/ML 500 ML BTL-Imaging package 100 ML IJ (11:47)
--- NOTE | 2024-05-13 11:58 | DI.CT_ITS ---
Exam(s) CT ABDOMEN PELVIS W EXAM: CT ABDOMEN PELVIS W CLINICAL HISTORY: upper mid abd pain,above umbilicus,R10.9. TECHNIQUE: Imaging Protocol: Axial computed tomography images with coronal and sagittal reformatted images were created and reviewed CONTRAST MATERIAL: Intravenous: Omnipaque-350 100cc Oral: Yes. Oral contrast was also administered for bowel opacification. COMPARISON: CT CT ABDOMEN PELVIS WO from 09/01/[address] ABDOMEN PELVIS W from 11/24/2022 FINDINGS: VISUALIZED LUNG BASES: Uppermost image (image 1) of this abdominal study reveals a small 3 millimeter nodule in the right lower lobe. No other lung base findings and no pleural effusions.. ABDOMEN: There is no ascites. LIVER: The liver is very hypodense implying severe steatosis. There no discrete focal hepatic lesion s nor dilatation of intrahepatic ducts. GALLBLADDER/BILIARY: Gallstones are again noted. No evidence of acute cholecystitis. CBD is not dil ated. PANCREAS: No evidence of pancreatic mass nor dilatation of the pancreatic duct. SPLEEN: Spleen is not enlarged. No obvious intrasplenic lesions. Splenic and portal veins are paten t. ADRENALS: Left adrenal gland unremarkable. There is a nodule again noted in the right adrenal gland which appears unchanged in size from CT scan of November 2022 and August 2021 and is most probably a b enign adenoma. This measures 2 x 1.8 cm KIDNEYS:No cysts evident. No solid renal masses. No calculi nor hydronephrosis.. ABDOMINAL AORTA: Abdominal aorta is not enlarged. LYMPH NODES:There is no retroperitoneal nor paraaortic adenopathy. ABDOMINAL WALL: There is an anterior abdominal wall midline fat only containing hernia which correspo nds to the skin marker. The hernia sac measures 6.6 cm wide by 4.8 cm AP by 6.3 cm craniocaudal, sli ghtly larger than previous. This hernia sac contains mesenteric fat but no bowel loops. There is al so no fluid evident in the hernia sac. None there is no mural edema in the adjacent transverse colon . GI: There is no evidence of bowel obstruction, free air, nor abscess. PELVIS: GI: No evidence of appendicitis.No evidence of sigmoid diverticulitis. LYMPH NODES: There is no intrapelvic nor inguinal adenopathy. REPRODUCTIVE: There is an IUD again noted in the uterine canal. the position of the IUD in the endom etrial cavity is towards the lower uterine segment, and the lower most aspect of the IUD appears to b e in the upper endocervical canal. This is unchanged from previous CT scan of November 2022. No ab normal adnexal findings nor free fluid. URINARY BLADDER: No calculi nor obvious masses evident OSSEOUS: No fractures and no significant osseous lesions. IMPRESSION: 1. There is a fat only containing anterior abdominal wall midline supraumbilical hernia with measurem ents as above and which corresponds to the overlying skin marker. This hernia sac contains mesenteri c fat but no bowel loops nor abnormal fluid therein. There is no evidence of bowel obstruction. The closest bowel loop to the hernia neck is the transverse colon and this appears unremarkable. The he rnia and neck is approximately 2 cm wide. 2. Cholelithiasis again noted. No evidence of acute cholecystitis nor dilatation of the biliary tree . 3. Hepatic steatosis which has increased from previous. 4. IUD is again noted to be in the lower uterine segment. The most inferior aspect of the IUD may be in the upper aspect of the endocervical canal. Position is unchanged from prior CT scan of [facility] 2022. 5. Continued stable appearance of 2 cm nodule in the right adrenal gland exhibiting minimal if any s ignificant change compared to August 2021 and most probably a benign adenoma. The opposite-left adrena l gland remains unremarkable. RADIATION DOSE DELIVERED: 1,272.34mGy.cm Total DLP DATA REPOSITORY: All CT scans at this facility are submitted to the National Radiology Data Registry (NRDR) Dose Index Registry (DIR) with the [employer] ([employer]). RADIATION OPTIMIZATION: All CT scans at this facility use at least one of these dose optimization te chniques: automated exposure control; mA and/or kV adjustment per patient size (includes targeted exa ms where dose is matched to clinical indication); or iterative reconstruction.
== END 2024-05-13 01:33 ==
LOC: DI 01:13
PROVIDERS: PCP Nurse Practitioner Family; Visit Provider Nurse Practitioner Family
DX: R10.9 Unspecified abdominal pain (principal); E03.9 Hypothyroidism, unspecified
CPT/HCPCS: 74177; 82565; 84443

== ENCOUNTER 2024-09-18 00:19 | Outpatient (CLI) | payer MEDICARE, SELFPAY ==
--- NOTE | 2024-09-18 15:27 | DI.MAMMO_ITS ---
Exam(s) MAMMO SCREENING EXAM: MAMMO SCREENING CLINICAL HISTORY: screening,z12.39. TECHNIQUE: Bilateral full field digital CC and MLO mammographic images were obtained with 3D tomosynthesis and utilizing computer aided detection (CAD). COMPARISON: Prior mammograms were reviewed. FINDINGS: There has been no significant change in the appearance and distribution of the fibroglandular tissue. Benign-appearing nodules in both breasts again remain unchanged. There are no new spiculated masses nor new malignant appearing microcalcification groups. There is no significant architectural distortion nor skin thickening-retraction. IMPRESSION: Stable benign findings. No radiographic evidence of malignancy. BI-RADS Category 2 - Benign Findings Breast Density - Category B - There are scattered areas of fibroglandular density. Breast density Category C or D implies that the patient has dense breast tissue. Dense breast tissue can make it harder to find cancer on a mammogram. Dense breast tissue is also associated with an increased risk of breast cancer. This information about the result of the mammogram report was provided to the patient to raise their awareness. Use this report when you speak with the patient about their risks for breast cancer, which includes their family history. At that time, you may recommend additional screening tests (Ultrasound or MRI) as these tests may add significant information. A negative radiographic report should not delay biopsy if a dominant or clinically suspicious mass is present. Up to ten percent of cancers are not identified on mammography. A negative report may reinforce clinical impression. Adenosis and dense breasts may obscure an underlying neoplasm. False positive reports average 6 to 10%. Patient will receive a letter notifying them of these results.
== END 2024-09-18 00:39 ==
LOC: DI 00:19
PROVIDERS: PCP Nurse Practitioner Family; Visit Provider Nurse Practitioner Family
DX: Z12.31 Encounter for screening mammogram for malignant neoplasm of breast (principal); R92.323 Mammographic fibroglandular density, bilateral breasts; D24.1 Benign neoplasm of right breast; D24.2 Benign neoplasm of left breast
CPT/HCPCS: 77063; 77067

== ENCOUNTER 2024-12-08 02:53 | Outpatient (CLI) | payer MEDICARE, SELFPAY ==
[2024-12-08 14:16] LABS: HCT 42.4 % (36.0-46.0); HGB 13.5 g/dL (11.2-15.7); MCH 28.4 pg (27.0-33.0); MCHC 31.8 % (32.0-36.0); MCV 89 fL (80-95); MPV 9.6 fL (8.0-11.0); Platelet Count 331 10^3/uL (130-400); RBC 4.76 10^6/uL (3.93-5.22); RDW 13.3 % (11.7-14.6); RDW-SD 43.8 fL; WBC 10.14 10^3/uL (4.4-10.8)
[2024-12-08 15:18] LABS: ALT 41 U/L (14-59); AST 14 U/L (15-37); Albumin 3.5 g/dL (3.4-5.0); Alkaline Phosphatase 114 U/L (46-116); Anion Gap 8.8 mmol/L (3-11); BUN 16 mg/dL (7-18); Bilirubin, Total 0.3 mg/dL (0.2-1.0); CO2 26.2 mmol/L (21.0-32.0); Calcium 9.3 mg/dL (8.5-10.1); Calculated LDL 88 mg/dL (<100); Chloride 102 mmol/L (98-107); Cholesterol 155 mg/dL (<200); Estimated GFR 70.80 (mL/min/1.73m2); Glucose 197 mg/dL (74-106); HDL Cholesterol 40 mg/dL (>or=50); Potassium 4.6 mmol/L (3.5-5.1); Sodium 137 mmol/L (136-145); TSH (W/Ref FT4) 2.39 uIU/mL (0.36-3.74); Total Protein 6.8 g/dL (6.4-8.2); Triglyceride 136 mg/dL (<150)
== END 2024-12-08 02:54 | disposition home or self-care (01) ==
LOC: LOS 02:53
PROVIDERS: PCP Nurse Practitioner Family; Visit Provider Nurse Practitioner Family
DX: E03.9 Hypothyroidism, unspecified (principal); E11.9 Type 2 diabetes mellitus without complications; Z00.00 Encounter for general adult medical examination without abnormal findings; E66.01 Morbid (severe) obesity due to excess calories; J44.9 Chronic obstructive pulmonary disease, unspecified; K21.9 Gastro-esophageal reflux disease without esophagitis
CPT/HCPCS: 36415; 80053; 80061; 85027; 84443

== ENCOUNTER 2025-01-14 00:29 | Outpatient (CLI) | payer MEDICARE, SELFPAY ==
[2025-01-14 14:26] LABS: ALT 59 U/L (14-59); AST 25 U/L (15-37); Albumin 3.7 g/dL (3.4-5.0); Alkaline Phosphatase 109 U/L (46-116); Anion Gap 5.6 mmol/L (3-11); BUN 11 mg/dL (7-18); Bilirubin, Total 0.4 mg/dL (0.2-1.0); CO2 30.4 mmol/L (21.0-32.0); Calcium 9.7 mg/dL (8.5-10.1); Chloride 100 mmol/L (98-107); Glucose 115 mg/dL (74-106); Potassium 4.2 mmol/L (3.5-5.1); Sodium 136 mmol/L (136-145); TSH (W/Ref FT4) 2.24 uIU/mL (0.36-3.74); Total Protein 7.3 g/dL (6.4-8.2)
[2025-01-14 16:13] LABS: Lithium 0.9 mmol/L (0.6-1.2)
== END 2025-01-14 00:30 | disposition home or self-care (01) ==
LOC: LOS 00:29
PROVIDERS: PCP Nurse Practitioner Family; Visit Provider Nurse Practitioner Family
DX: Z51.81 Encounter for therapeutic drug level monitoring (principal)
CPT/HCPCS: 36415; 80053; 80178; 84146; 84443